=== PATIENT | female | born 1945 | race Caucasian/White ===

== ENCOUNTER 2016-10-03 12:51 | Emergency (ER) | payer MEDICARE, MEDICAID ==
[2016-10-03] MEDS ORDERED: NS 0.9% 1000 ML* 1,000 ML IV SCH (14:15)
[2016-10-03 14:26] LABS: Hematocrit 40 % (35-47); Hemoglobin 13.4 g/dl (12.0-16.0); Mean Corpuscular HGB Conc 33 g/dl (31-36); Mean Corpuscular Hemoglobin 30 pg (27-31); Mean Corpuscular Volume 91 fL (80-97); Mean Platelet Volume 9 um3 (7.4-10.4); Red Blood Count 4.42 10^6/ul (4.0-5.4); Red Cell Distribution Width 13 % (10.5-15); White Blood Count 6.5 10^3/ul (3.5-10.8)
[2016-10-03 14:39] LABS: Albumin 4.2 g/dL (3.2-5.2); BUN/Creatinine Ratio 23.6 (8-20); C Reactive Protein 8.58 mg/L (< 5.00); Calcium 9.7 mg/dL (8.6-10.3); EGFR African American 103.3 (>60); EGFR Non-African American 80.3 (>60); Globulin 2.6 g/dL (2-4); Magnesium 2.1 mg/dL (1.9-2.7); Total Bilirubin 0.6 mg/dL (0.2-1.0); Total Protein 6.8 g/dL (6.4-8.9)
[2016-10-03 14:58] LABS: TSH (Thyroid Stimulating Horm) 1.44 mcIU/mL (0.34-5.60)
--- NOTE | 2016-10-03 15:07 | RAD ---
Indication: Shortness of breath. Cardiac disease. Recent pacemaker battery placement. Chronic obstructive pulmonary disease. Comparison: May 30, 2016 Technique: Upright AP 1420 hours Report: RIGHT atrial, RIGHT ventricular, and coronary sinus level pacemaker leads without change. Cutaneous isabell over the control device corresponding with recent battery change. Prosthetic aortic valve. Negative for cardiomegaly. Unremarkable central pulmonary vasculature and mediastinal contours. Elevated lung volumes with partial flattening of the hemidiaphragms. Unchanged trace bilateral pleural effusions. Negative for pneumothorax. Minimal prominence of the interstitial markings without change. IMPRESSION: Chronic finding of trace bilateral pleural effusions. No evidence for new pulmonary edema or pneumonia.
--- NOTE | 2016-10-03 19:13 | ED ---
Ama Ruvalcaba Erika, scribed for Brayan Gan MD on 10/03/16 at 1521 . Palpitations / Dysrhythmia - HPI Summary HPI Summary: Patient is a 71-year-old female presenting to the ED with a CC of palpitations. Patient reports that she has been feeling intermittent SOB and fatigue for weeks. Her system development manager, Dr. Hess, believed it may be due to her pacemaker battery, so she had that replaced in [place] on 09/29/2016. Patient has continued to experience these symptoms. Last night, she had several quick palpitations, and felt more SOB during these palpitations. Today, patient states SOB and fatigue have been more constant, and she has also been experiencing lightheadedness, so Dr. Loomis recommended she come to the ED. Patient does report a few instances of sharp chest pain, but states this is at baseline. She reports she has been able to eat and drink today. She denies abdominal pain, diarrhea, blood in stool, burning with urination, and rashes. Patient reports that symptoms remind her of symptoms she had prior to valve replacement. - History of Current Complaint Chief Complaint: EDDysrhythmPalp Time Seen by Provider: 10/03/16 13:37 Hx Obtained From: Patient Onset/Duration: Lasting Weeks, Still Present Timing: Intermittent Episodes Lasting: - minutes/hours Severity Currently: Moderate Associated Signs & Symptoms: Shortness of Breath - Allergy/Home Medications Allergies/Adverse Reactions: Allergies Allergy/AdvReac Type Severity Reaction Status Date / Time Azithromycin Allergy Unknown Unknown Verified 10/03/16 13:25 Reaction Details Doxycycline Allergy Unknown Unknown Verified 10/03/16 13:25 Reaction Details Metoprolol Allergy Unknown Unknown Verified 10/03/16 13:25 Reaction Details Penicillins Allergy Unknown Unknown Verified 10/03/16 13:25 Reaction Details Simvastatin [From Zocor] Allergy Unknown Unknown Verified 10/03/16 13:25 Reaction Details Sulfa Drugs Allergy Unknown Unknown Verified 10/03/16 13:25 Reaction Details Sulfamethoxazole Allergy Unknown Unknown Verified 10/03/16 13:25 w/Trimethoprim Reaction [From Bactrim] Details Home Medications: Home Medications Lactobacillus [Probiotic] 1 cap PO 10/03/16 [History] PMH/Surg Hx/FS Hx/Imm Hx Endocrine/Hematology History: Reports: Hx Anticoagulant Therapy, Hx Anemia Denies: Hx Diabetes, Hx Systemic Lupus Erythematosus Cardiovascular History: Reports: Hx Auto Implanted Cardiovert Defib, Hx Congestive Heart Failure, Hx Coronary Artery Disease, Hx Hypercholesterolemia, Hx Hypertension - not taking medication now for approx one year, Hx Pacemaker/ ICD, Hx Valvular Heart Disease, Other Cardiovascular Problems/Disorders - patent foramen ovale, cardiomyopathy Respiratory History: Reports: Hx Asthma, Hx Chronic Obstructive Pulmonary Disease (COPD), Hx Pleural Effusion, Hx Sleep Apnea, Other Respiratory Problems/ Disorders - PATIENT STATES FLUID IN LUNGS GI History: Reports: Hx Gastroesophageal Reflux Disease History: Denies: Hx Dialysis, Hx Renal Disease Musculoskeletal History: Denies: Hx Rheumatoid Arthritis, Hx Scoliosis Sensory History: Reports: Hx Contacts or Glasses Opthamlomology History: Reports: Hx Contacts or Glasses Neurological History: Reports: Hx Seizures - partial simple, Hx Transient Ischemic Attacks (TIA) Denies: Hx Headaches - Cancer History Hx Chemotherapy: No - Surgical History Surgery Procedure, Year, and Place: CABG X 2 (09/2012) at [place], the second one was done at [facility] and 2 months ago 2013. PACEMAKER () [employer] [facility]#[phone]. mitral & aortic valve sx 09/21/2012 in [place]. [place] [facility] [place] hyste[place]. CARDIOVERSION, open heart several of these procedures then pacemaker was done. [place] [facility] [place] the [place]; left foot SX 15 years ago at [facility]; Hx Anesthesia Reactions: No Infectious Disease History: No Infectious Disease History: Reports: Hx Shingles Denies: Traveled Outside the [place] in Last 30 Days - Family History Known Family History: Positive: Cardiac Disease, Hypertension - Social History Alcohol Use: None Hx Substance Use: No Substance Use Type: Reports: None Hx Tobacco Use: No Smoking Status (MU): Never Smoked Tobacco Review of Systems Positive: Fatigue Positive: Palpitations, Chest Pain - sharp and short - baseline Positive: Shortness Of Breath Negative: Abdominal Pain, Diarrhea Negative: burning Negative: Rash Neurological: Other - lightheadedness All Other Systems Reviewed And Are Negative: Yes Physical Exam Triage Information Reviewed: Yes Vital Signs On Initial Exam: Initial Vitals Temp Pulse Resp BP Pulse Ox 97.2 F 100 16 180/73 100 10/03/16 13:01 10/03/16 13:01 10/03/16 13:01 10/03/16 13:01 10/03/16 13:01 Vital Signs Reviewed: Yes Appearance: Positive: Well-Appearing, No Pain Distress Skin: Positive: Warm, Skin Color Reflects Adequate Perfusion, Dry Head/Face: Positive: Normal Head/Face Inspection Eyes: Positive: EOMI, EILEEN ENT: Positive: Normal ENT inspection Neck: Positive: Supple, Nontender Respiratory/Lung Sounds: Positive: Clear to Auscultation, Breath Sounds Present Cardiovascular: Positive: RRR - on exam, noted 100 on triage Abdomen Description: Positive: Nontender, Soft Bowel Sounds: Positive: Present Musculoskeletal: Positive: Normal, Strength/ROM Intact Neurological: Positive: Normal, Sensory/Motor Intact, Alert, Oriented to Person Place, Time Psychiatric: Positive: Affect/Mood Appropriate - Evangelist Coma Scale Coma Scale Total: 15 Diagnostics - Vital Signs Vital Signs Temp Pulse Resp BP Pulse Ox 10/03/16 13:19 154/70 10/03/16 13:17 97.2 F 77 16 154/70 98 10/03/16 13:16 84 10/03/16 13:01 97.2 F 100 16 180/73 100 - Laboratory Lab Results: Lab Results 10/03/16 10/03/16 10/03/16 Range/Units 13:40 13:40 13:40 WBC 6.5 (3.5-10.8) 10^3/ul RBC 4.42 (4.0-5.4) 10^6/ul Hgb 13.4 (12.0-16.0) g/dl Hct 40 (35-47) % MCV 91 (80-97) fL MCH 30 (27-31) pg MCHC 33 (31-36) g/dl RDW 13 (10.5-15) % Plt Count 159 (150-450) 10^3/ul MPV 9 (7.4-10.4) um3 Neut % (Auto) 76.3 (38-83) % Lymph % (Auto) 14.5 L (25-47) % [place] % (Auto) 7.7 (1-9) % Eos % (Auto) 1.3 (0-6) % Baso % (Auto) 0.2 (0-2) % Absolute Neuts (auto) 5.0 (1.5-7.7) 10^3/ul Absolute Lymphs (auto) 0.9 L (1.0-4.8) 10^3/ul Absolute Monos (auto) 0.5 (0-0.8) 10^3/ul Absolute Eos (auto) 0.1 (0-0.6) 10^3/ul Absolute Basos (auto) 0 (0-0.2) 10^3/ul Absolute Nucleated RBC 0 10^3/ul Nucleated RBC % 0 INR (Anticoag Therapy) 1.00 (0.89-1.11) APTT 30.1 (26.0-36.3) seconds Sodium 138 (133-145) mmol/L Potassium 4.0 (3.5-5.0) mmol/L Chloride 105 (101-111) mmol/L Carbon Dioxide 24 (22-32) mmol/L Anion Gap 9 (2-11) mmol/L BUN 17 (6-24) mg/dL Creatinine 0.72 (0.51-0.95) mg/dL Est GFR ( Amer) 103.3 (>60) Est GFR (Non-Af Amer) 80.3 (>60) BUN/Creatinine Ratio 23.6 H (8-20) Glucose 87 (70-100) mg/dL Lactic Acid (0.5-2.0) mmol/L Calcium 9.7 (8.6-10.3) mg/dL Magnesium 2.1 (1.9-2.7) mg/dL Total Bilirubin 0.60 (0.2-1.0) mg/dL AST 25 (13-39) U/L ALT 20 (7-52) U/L Alkaline Phosphatase 48 (34-104) U/L Total Creatine Kinase 58 (10-223) U/L CK-MB (CK-2) 1.5 (0.6-6.3) ng/mL Troponin I 0.00 (<0.04) ng/mL C-Reactive Protein 8.58 H (< 5.00) mg/L B-Natriuretic Peptide ( - 100) pg/mL Total Protein 6.8 (6.4-8.9) g/dL Albumin 4.2 (3.2-5.2) g/dL Globulin 2.6 (2-4) g/dL Albumin/Globulin Ratio 1.6 (1-3) Lipase 43 (11.0-82.0) U/L TSH 1.44 (0.34-5.60) mcIU/mL 10/03/16 10/03/16 Range/Units 13:40 13:40 WBC (3.5-10.8) 10^3/ul RBC (4.0-5.4) 10^6/ul Hgb (12.0-16.0) g/dl Hct (35-47) % MCV (80-97) fL MCH (27-31) pg MCHC (31-36) g/dl RDW (10.5-15) % Plt Count (150-450) 10^3/ul MPV (7.4-10.4) um3 Neut % (Auto) (38-83) % Lymph % (Auto) (25-47) % [place] % (Auto) (1-9) % Eos % (Auto) (0-6) % Baso % (Auto) (0-2) % Absolute Neuts (auto) (1.5-7.7) 10^3/ul Absolute Lymphs (auto) (1.0-4.8) 10^3/ul Absolute Monos (auto) (0-0.8) 10^3/ul Absolute Eos (auto) (0-0.6) 10^3/ul Absolute Basos (auto) (0-0.2) 10^3/ul Absolute Nucleated RBC 10^3/ul Nucleated RBC % INR (Anticoag Therapy) (0.89-1.11) APTT (26.0-36.3) seconds Sodium (133-145) mmol/L Potassium (3.5-5.0) mmol/L Chloride (101-111) mmol/L Carbon Dioxide (22-32) mmol/L Anion Gap (2-11) mmol/L BUN (6-24) mg/dL Creatinine (0.51-0.95) mg/dL Est GFR ( Amer) (>60) Est GFR (Non-Af Amer) (>60) BUN/Creatinine Ratio (8-20) Glucose (70-100) mg/dL Lactic Acid 0.6 (0.5-2.0) mmol/L Calcium (8.6-10.3) mg/dL Magnesium (1.9-2.7) mg/dL Total Bilirubin (0.2-1.0) mg/dL AST (13-39) U/L ALT (7-52) U/L Alkaline Phosphatase (34-104) U/L Total Creatine Kinase (10-223) U/L CK-MB (CK-2) (0.6-6.3) ng/mL Troponin I (<0.04) ng/mL C-Reactive Protein (< 5.00) mg/L B-Natriuretic Peptide 58 ( - 100) pg/mL Total Protein (6.4-8.9) g/dL Albumin (3.2-5.2) g/dL Globulin (2-4) g/dL Albumin/Globulin Ratio (1-3) Lipase (11.0-82.0) U/L TSH (0.34-5.60) mcIU/mL Result Diagrams: 10/03/16 13:40 10/03/16 13:40 Lab Statement: Any lab studies that have been ordered have been reviewed, and results considered in the medical decision making process. - Radiology CXR Radiology Interpretation Completed By: Radiologist - IMPRESSION: Chronic finding of trace bilateral pleural effusions. No evidence for new pulmonary edema or pneumonia. - EKG 13:11 EKG Interpretation: Dual chamber paced rhythm at 70 bpm Re-Evaluation - Re-Evaluation First Eval Re-Evaluation Time: 17:41 Comment: Discussed all results with patient Course/Dx - Course Course Of Treatment: NO CRITICAL CARE TIME Assessment/Plan: WELL IN ED. NO PROBLEMS WITH PACEMAKER WHICH WAS INTERROGATED. PATIENT WILL CALL CARDIOLOGY TO DISCUSS HAVING AN ECHO CARDIOGRAM. DISCHARGE HOME STABLE. - Diagnoses Provider Diagnoses: Dyspnea, Palpitations - Physician Notifications Discussed Care Of Patient With: Dr. Loomis (system development manager) at 14:09 - recommends having evaluation by pacemaker interrogation tech. Discharge - Discharge Plan Condition: Stable Disposition: HOME Patient Education Materials: Dyspnea (ED), Palpitations (ED) Referrals: Sol Jones MD [Primary Care Provider] - Additional Instructions: FOLLOW UP WITH YOUR DOCTOR. CALL DR HESS WEDNESDAY, DISCUSS GETTING AN ECHO CARDIOGRAM. RETURN TO THE EMERGENCY DEPARTMENT FOR ANY WORSENING OF YOUR CONDITION; CHEST PAIN, SHORTNESS OF BREATH OR QUESTIONS OR CONCERNS. The documentation as recorded by the Ama catalan Erika accurately reflects the service I personally performed and the decisions made by me, Brayan Gan MD.
[2016-10-03 19:49] VITALS: BP 104/50
== END 2016-10-03 20:00 | disposition home or self-care (01) ==
LOC: ED 12:51
DX: R06.00 Dyspnea, unspecified (principal); R00.2 Palpitations; R06.02 Shortness of breath; R07.9 Chest pain, unspecified; R53.83 Other fatigue
CPT/HCPCS: 36415; 71010; 80053; 82550; 82553; 83605; 83690; 83735; 83880; 84443; 84484; 85025; 85610; 85730; 86140; 93005; 96360; 99283

== ENCOUNTER → 2016-10-22 12:32 | Emergency (ER) | payer MEDICARE, MEDICAID ==
[2016-10-22 13:44] VITALS: BP 146/82
[2016-10-22 13:57] LABS: Hematocrit 41 % (35-47); Hemoglobin 13.5 g/dl (12.0-16.0); Mean Corpuscular HGB Conc 33 g/dl (31-36); Mean Corpuscular Hemoglobin 30 pg (27-31); Mean Corpuscular Volume 91 fL (80-97); Mean Platelet Volume 8 um3 (7.4-10.4); Red Blood Count 4.48 10^6/ul (4.0-5.4); Red Cell Distribution Width 13 % (10.5-15); White Blood Count 6.3 10^3/ul (3.5-10.8)
--- NOTE | 2016-10-22 14:02 | RAD ---
Indication: Blurred vision, weakness, chest discomfort, fatigue. Comparison: February 07, 2016 CT. Technique: Noncontrast CT vertex of skull through foramen magnum. Report: Moderately severe prominence of the cerebral sulci without change. Similar moderate prominence of the cerebellar fissures. Encephalomalacia at the vertex of the RIGHT parietal lobe likely secondary to ischemic or other remote insult. No matter white matter obscuration, intra or extra-axial hemorrhage, or mass effect. Unremarkable ventricles and basal cisterns. Unremarkable partially visualized orbital contents. Unremarkable calvarium and skull base as well as the visualized paranasal sinuses and mastoid air spaces. IMPRESSION: 1. No acute intracranial process evident. 2. Moderate involutional change. 3. 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
[2016-10-22 14:13] LABS: ALT 18 U/L (7-52); AST 24 U/L (13-39); Albumin 4.3 g/dL (3.2-5.2); Alkaline Phosphatase 50 U/L (34-104); Anion Gap 6 mmol/L (2-11); BUN/Creatinine Ratio 21.5 (8-20); Blood Urea Nitrogen 17 mg/dL (6-24); CO2 Carbon Dioxide 27 mmol/L (22-32); Calcium 9.9 mg/dL (8.6-10.3); Chloride 106 mmol/L (101-111); EGFR African American 92.8 (>60); EGFR Non-African American 72.2 (>60); Globulin 2.6 g/dL (2-4); Glucose 95 mg/dL (70-100); Potassium 3.9 mmol/L (3.5-5.0); Sodium 139 mmol/L (133-145); Total Protein 6.9 g/dL (6.4-8.9)
[2016-10-22 14:14] LABS: Troponin I 0.01 ng/mL (<0.04)
--- NOTE | 2016-10-22 14:37 | RAD ---
INDICATION: Blurred vision, ill-defined mental status change. Shortness of breath, recent chest pain. History of cardiomyopathy and previous valve surgery. COMPARISON: October 03, 2016 TECHNIQUE: Dual energy PA and routine lateral views of the chest were obtained. REPORT: Elevated lung volumes and both diffuse mild prominence of the interstitial markings and patchy rarefaction of the mid to upper lung zone interstitial markings. No pulmonary infiltrate or focal pulmonary lesion evident. Probable trace pleural effusions. Negative for pneumothorax. RIGHT atrial, RIGHT ventricular, and coronary sinus level pacemaker leads without change. Negative for cardiomegaly. Median sternotomy wires and prosthetic aortic valve. Unremarkable central pulmonary vasculature. No suspicious thoracic osseous lesions. IMPRESSION: 1. Stigmata of obstructive lung disease. 2. Very mild interstitial edema not excluded. Probable trace pleural effusions.
[2016-10-22 14:43] LABS: Alcohol < 10 mg/dL (<10)
--- NOTE | 2016-10-22 15:52 | ED ---
Dina Ruvalcaba Alok, scribed for Ruperto Avila MD on 10/22/16 at 1425 . Neurological HPI - HPI Summary HPI Summary: 71F presents to the ED for blurry vision and fatigue as of 1100 this morning. Pt states that at 1100 she noticed blurry vision without diplopia while trying to read. Pt also noted at 1100 left sided sharp pains and felt "her brain was not functioning properly" described as an "out of body experienced" as well as nausea and slight SOB. At present pt states her vision has improved and only c/ o fatigue. Pt also notes slight congestion. Pt notes a cold sore on her right side lower mouth for the last 4 days. Pt also notes chronic lung pain due to lung fluid removal done at [place] by Dr. Sky. Pt denies cough and has been eating/sleeping normally. Pt states her BM have been nml. PMHx includes heart murmur and pacemaker. PSHx includes 2 CABG. - History of Current Complaint Chief Complaint: EDNeurologicalDeficit Stated Complaint: BLURRED VISION,SOB,BRIEF CHEST PAIN Time Seen by Provider: 10/22/16 13:46 Hx Obtained From: Patient Onset/Duration: Started hours ago, Still Present - fatigue, Resolved - vison blurriness Timing: Constant Onset Severity: Moderate Current Severity: Moderate Pain Intensity: 0 Pain Scale Used: 0-10 Numeric Character: Unable To Describe - "out of body", Visual Changes - blurriness, Other: - faituge. nausea. slight SOB. left side sharp pains. Negative: diplopia. Associated Signs and Symptoms: Positive: Visual Changes - blurriness. Negative: Diplopia, Weakness - Fatigue-like. Left side sharp pains., Nausea/Vomiting, Shortness of Breath - slight. Negative: Fever - Allergy/Home Medications Allergies/Adverse Reactions: Allergies Allergy/AdvReac Type Severity Reaction Status Date / Time Azithromycin Allergy Unknown Unknown Verified 10/03/16 13:25 Reaction Details Doxycycline Allergy Unknown Unknown Verified 10/03/16 13:25 Reaction Details Metoprolol Allergy Unknown Unknown Verified 10/03/16 13:25 Reaction Details Penicillins Allergy Unknown Unknown Verified 10/03/16 13:25 Reaction Details Simvastatin [From Zocor] Allergy Unknown Unknown Verified 10/03/16 13:25 Reaction Details Sulfa Drugs Allergy Unknown Unknown Verified 10/03/16 13:25 Reaction Details Sulfamethoxazole Allergy Unknown Unknown Verified 10/03/16 13:25 w/Trimethoprim Reaction [From Bactrim] Details PMH/Surg Hx/FS Hx/Imm Hx Endocrine/Hematology History: Reports: Hx Anticoagulant Therapy, Hx Anemia Denies: Hx Diabetes, Hx Systemic Lupus Erythematosus Cardiovascular History: Reports: Hx Auto Implanted Cardiovert Defib, Hx Congestive Heart Failure, Hx Coronary Artery Disease, Hx Hypercholesterolemia, Hx Hypertension - not taking medication now for approx one year, Hx Pacemaker/ ICD, Hx Valvular Heart Disease, Other Cardiovascular Problems/Disorders - patent foramen ovale, cardiomyopathy Respiratory History: Reports: Hx Asthma, Hx Chronic Obstructive Pulmonary Disease (COPD), Hx Pleural Effusion, Hx Sleep Apnea, Other Respiratory Problems/ Disorders - PATIENT STATES FLUID IN LUNGS GI History: Reports: Hx Gastroesophageal Reflux Disease History: Denies: Hx Dialysis, Hx Renal Disease Musculoskeletal History: Denies: Hx Rheumatoid Arthritis, Hx Scoliosis Sensory History: Reports: Hx Contacts or Glasses Opthamlomology History: Reports: Hx Contacts or Glasses Neurological History: Reports: Hx Seizures - partial simple, Hx Transient Ischemic Attacks (TIA) Denies: Hx Headaches - Cancer History Hx Chemotherapy: No - Surgical History Surgery Procedure, Year, and Place: CABG X 2 (09/2012) at [place], the second one was done at [facility] and 2 months ago 2013. PACEMAKER () [employer] [facility]#[phone]. mitral & aortic valve sx 09/21/2012 in [place]. left thorcetesis 12[place]2012 [place] [facility] [place] tubal ligation & hysterectomy. CARDIOVERSION, open heart several of these procedures then pacemaker was done. Sigmoid colon resection at [facility] [place] pt cannot remember the year; left foot SX 15 years ago at [facility]; Hx Anesthesia Reactions: No Infectious Disease History: No Infectious Disease History: Reports: Hx Shingles Denies: Traveled Outside the [place] in Last 30 Days - Family History Known Family History: Positive: Cardiac Disease, Hypertension - Social History Occupation: Disabled Alcohol Use: None Hx Substance Use: No Substance Use Type: Reports: None Hx Tobacco Use: No Smoking Status (MU): Never Smoked Tobacco Review of Systems Positive: Fatigue. Negative: Fever Positive: Blurred Vision. Negative: Diplopia Positive: Other - nasal congestion. Cold sore right side lower mouth. Positive: Shortness Of Breath - slight, Other - lung pain (chronic). Negative: Cough Positive: Nausea, Other - Negative: constipation. Loss of apetite. Negative: Diarrhea Neurological: Other - left side sharp pain. Negative: loss of sleep All Other Systems Reviewed And Are Negative: Yes Physical Exam Triage Information Reviewed: Yes Vital Signs On Initial Exam: Initial Vitals Temp Pulse Resp BP Pulse Ox 97.8 F 70 18 166/76 100 10/22/16 12:35 10/22/16 12:35 10/22/16 12:35 10/22/16 12:35 10/22/16 12:35 Vital Signs Reviewed: Yes Appearance: Positive: Well-Appearing, No Pain Distress Skin: Positive: Warm, Skin Color Reflects Adequate Perfusion, Dry, Other - abcess ulcer right side lower mouth Head/Face: Positive: Normal Head/Face Inspection Eyes: Positive: Normal ENT: Positive: Other - abcess ulcer right side lower mouth Neck: Positive: Supple, Nontender Respiratory/Lung Sounds: Positive: Clear to Auscultation, Breath Sounds Present Cardiovascular: Positive: RRR Abdomen Description: Positive: Nontender, Soft Bowel Sounds: Positive: Present Musculoskeletal: Positive: Normal Neurological: Positive: Normal Psychiatric: Positive: Normal, Affect/Mood Appropriate Diagnostics - Vital Signs Vital Signs Temp Pulse Resp BP Pulse Ox 10/22/16 13:36 99.8 F 79 14 146/82 98 10/22/16 12:35 97.8 F 70 18 166/76 100 - Laboratory Lab Results: Lab Results 10/22/16 Range/Units 13:50 WBC 6.3 (3.5-10.8) 10^3/ul RBC 4.48 (4.0-5.4) 10^6/ul Hgb 13.5 (12.0-16.0) g/dl Hct 41 (35-47) % MCV 91 (80-97) fL MCH 30 (27-31) pg MCHC 33 (31-36) g/dl RDW 13 (10.5-15) % Plt Count 163 (150-450) 10^3/ul MPV 8 (7.4-10.4) um3 Neut % (Auto) 78.7 (38-83) % Lymph % (Auto) 13.5 L (25-47) % [place] % (Auto) 6.8 (1-9) % Eos % (Auto) 0.5 (0-6) % Baso % (Auto) 0.5 (0-2) % Absolute Neuts (auto) 4.9 (1.5-7.7) 10^3/ul Absolute Lymphs (auto) 0.8 L (1.0-4.8) 10^3/ul Absolute Monos (auto) 0.4 (0-0.8) 10^3/ul Absolute Eos (auto) 0 (0-0.6) 10^3/ul Absolute Basos (auto) 0 (0-0.2) 10^3/ul Absolute Nucleated RBC 0.01 10^3/ul Nucleated RBC % 0.1 Result Diagrams: 10/22/16 13:50 10/22/16 13:50 Lab Statement: Any lab studies that have been ordered have been reviewed, and results considered in the medical decision making process. - Radiology CXR Xray Interpretation: Positive (See Comments) - IMPRESSION: 1. Stigmata of obstructive lung disease. 2. Very mild interstitial edema not excluded. Probable trace pleural effusions. Radiology Interpretation Completed By: Radiologist - CT Brain CT CT Interpretation: Positive (See Comments) - IMPRESSION: 1. No acute intracranial process evident. 2. Moderate involutional change. 3. 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 CT Interpretation Completed By: Radiologist - EKG 1250 Cardiac Rate: NL - 70 bpm EKG Rhythm: Sinus Rhythm EKG Interpretation: Paced Course/Dx - Course Course Of Treatment: Ms. Ramirez presented with a number of vague C/O which were present when she got up at about 0700 and are mostly gone now. On repeated questioning she is unable to pin down the symptoms but clearly did not feel well. She is feel ing better now and her W/U is negative. I recommended close F/U in case her symptoms return. - Diagnoses Provider Diagnoses: Weakness Discharge - Discharge Plan Condition: Stable Disposition: HOME Patient Education Materials: Weakness (ED) Referrals: Sol Jones MD [Primary Care Provider] - Additional Instructions: Please follow up with your primary care provider The documentation as recorded by the Dina catalan Alok accurately reflects the service I personally performed and the decisions made by me, Ruperto Avila MD.
== END | disposition home or self-care (01) ==
LOC: ED 12:32
DX: R53.1 Weakness (principal); H53.8 Other visual disturbances; R53.83 Other fatigue; R06.02 Shortness of breath; R11.0 Nausea
CPT/HCPCS: 36415; 70450; 71020; 80053; 80320; 83605; 84484; 85025; 85610; 93005; 99283; G0480

== ENCOUNTER 2016-12-12 11:27 | Inpatient (IN) | payer MEDICARE, MEDICAID ==
[2016-12-12] MEDS ORDERED: Ketorolac INJ* 30 MG/ML 1 ML VIAL IM ONE (12:26)
[2016-12-12] MEDS ORDERED: Ketorolac INJ* 60 MG/2 ML VIAL ONE (12:27)
--- NOTE | 2016-12-12 13:29 | RAD ---
HISTORY: Fall, rib pain COMPARISONS: None relevant VIEWS: 5, Frontal view of the chest with frontal and oblique views of the left hemithorax FINDINGS: There is left-sided pacemaker generator. A prosthetic heart valve is noted. There is a minimally displaced fracture of the left sixth rib. There is no appreciable pneumothorax. IMPRESSION: MINIMALLY DISPLACED LEFT SIXTH RIB FRACTURE. NO APPRECIABLE PNEUMOTHORAX.
--- NOTE | 2016-12-12 13:31 | RAD ---
HISTORY: Fall, pelvic pain COMPARISONS: None VIEWS: 1, Single frontal view of the pelvis FINDINGS: BONE DENSITY: Normal. BONES: There are minimally displaced fractures of the left inferior and superior pubic rami JOINTS: There is no arthropathy. ALIGNMENT: There is no dislocation. SOFT TISSUES: Unremarkable. OTHER FINDINGS: Degenerative changes noted of the spine IMPRESSION: MINIMALLY DISPLACED FRACTURES OF THE LEFT INFERIOR AND SUPERIOR PUBIC RAMI
--- NOTE | 2016-12-12 13:32 | RAD ---
HISTORY: Fall, left hip pain COMPARISONS: None VIEWS: 4, Frontal and lateral views of the left femur FINDINGS: BONE DENSITY: Normal. BONES: There is no displaced fracture. JOINTS: There is no arthropathy. ALIGNMENT: There is no dislocation. SOFT TISSUES: Unremarkable. OTHER FINDINGS: None. IMPRESSION: NO ACUTE OSSEOUS INJURY. IF SYMPTOMS PERSIST, RECOMMEND REPEAT IMAGING.
--- NOTE | 2016-12-12 13:39 | ED ---
Adult Trauma - HPI Summary HPI Summary: 71 female presents via EMS with complaints of left rib pain and left hip/thigh pain after sustaining a fall just [employer]. Patient states she was at a friends house when she fell down 2-3 steps landing on some gravel on her left side. Denies hitting her head, no LOC and remembers everything. States she was unable to get up due to the pain in her left groin area. She also complains of left rib pain that worsens with deep breaths. Patient states she fractured her rib on left side back in May and the pain feels similar. She denies any trouble breathing or SOB. Patient denies headache, vomiting, visual changes and chest pain/difficulty breathing. Did not have a syncopal episode. Denies lacerations, admits to a small abrasion on left elbow. Also complains of left wrist discomfort but no loss of ROM or obvious deformity. Is feeling nauseous but she thinks it is because she is worked up from the episode of events. No other complaints at this time. Is not on blood thinners. - History of Current Complaint Chief Complaint: EDGeneral Stated Complaint: FALL RIB AND PELVIC PAIN Time Seen by Provider: 12/12/16 11:37 Hx Obtained From: Patient, Family/Bioprocessing Manufacturing Technician - daughter and son in law ?: No Mechanism of Injury: Fall - down 2-3 steps onto some gravel after tripping Ambulatory at the Scene: No - due to pain Loss of Consciousness: no loss of consciousness Force: Medium Onset/Duration: Started Hours Ago, Traumatic, Worse Since Onset of Pain: Immediate Onset Severity: Moderate Current Severity: Mild Pain Intensity: 3 Pain Scale Used: 0-10 Numeric - 8/10 with movement Location: Chest - left rib cage/chest, Abdomen/Pelvis - LUQ and pelvis/femur left hip, Extremities - left wrist Character: Aching, Sharp Aggravating Factor(s): Movement, Deep Breaths, Weight Bearing, Ambulation Alleviating Factor(s): Rest - position Associated Signs & Symptoms: Positive: Abdominal Pain - "left ribs", Nausea/ Vomiting - nausea. Negative: SOB, Chest Pain, Hematuria - Allergy/Home Medications Allergies/Adverse Reactions: Allergies Allergy/AdvReac Type Severity Reaction Status Date / Time Penicillins Allergy Intermediate Rash Verified 11/27/16 12:53 Sulfamethoxazole Allergy Intermediate See Comment Verified 11/27/16 12:54 w/Trimethoprim [From Bactrim] Azithromycin Allergy Unknown Unknown Verified 11/27/16 12:53 Reaction Details Doxycycline Allergy Unknown Unknown Verified 11/27/16 12:53 Reaction Details Metoprolol Allergy Unknown Unknown Verified 11/27/16 12:53 Reaction Details Simvastatin [From Zocor] Allergy Unknown Unknown Verified 11/27/16 12:53 Reaction Details Sulfa Drugs Allergy Unknown Unknown Verified 11/27/16 12:53 Reaction Details PMH/Surg Hx/FS Hx/Imm Hx Endocrine/Hematology History: Reports: Hx Anticoagulant Therapy, Hx Anemia Denies: Hx Diabetes, Hx Systemic Lupus Erythematosus Cardiovascular History: Reports: Hx Auto Implanted Cardiovert Defib, Hx Congestive Heart Failure, Hx Coronary Artery Disease, Hx Hypercholesterolemia, Hx Hypertension - not taking medication, Hx Pacemaker/ICD, Hx Valvular Heart Disease, Other Cardiovascular Problems/Disorders - patent foramen ovale, cardiomyopathy Respiratory History: Reports: Hx Asthma, Hx Chronic Obstructive Pulmonary Disease (COPD), Hx Pleural Effusion, Hx Sleep Apnea, Other Respiratory Problems/ Disorders - PATIENT STATES FLUID IN LUNGS GI History: Reports: Hx Gastroesophageal Reflux Disease History: Denies: Hx Dialysis, Hx Renal Disease Musculoskeletal History: Denies: Hx Rheumatoid Arthritis, Hx Scoliosis Sensory History: Reports: Hx Contacts or Glasses Opthamlomology History: Reports: Hx Contacts or Glasses Neurological History: Reports: Hx Seizures - partial simple, Hx Transient Ischemic Attacks (TIA) Denies: Hx Headaches - Cancer History Hx Chemotherapy: No - Surgical History Surgery Procedure, Year, and Place: CABG X 2 (09/2012) at [place], the second one was done at [facility] and 2 months ago 2013. PACEMAKER () [employer] PH#[phone]. mitral & aortic valve sx 09/21/2012 in [place]. left thorcetesis 12[place]2012 [place] [facility] [place] tub[place] ligation & hysterectomy. CARDIOVERSION, open heart several of these procedures then pacemaker was done. Sigmoid colon resection at [facility] [place] cannot remember the year; left foot SX 15 years ago at [facility]; Hx Anesthesia Reactions: No - Immunization History Date of Tetanus Vaccine: UTD Date of Influenza Vaccine: UTD Immunizations Up to Date: Yes Infectious Disease History: No Infectious Disease History: Reports: Hx Shingles Denies: Traveled Outside the [place] in Last 30 Days - Family History Known Family History: Positive: Cardiac Disease, Hypertension - Social History Alcohol Use: None Hx Substance Use: No Substance Use Type: Reports: None Hx Tobacco Use: No Smoking Status (MU): Never Smoked Tobacco Review of Systems Constitutional: Negative Eyes: Negative ENT: Negative Cardiovascular: Negative Positive: Chest Pain - left rib cage Respiratory: Negative Positive: Abdominal Pain - upper quadrants, Nausea Positive: Arthralgia, Myalgia - left hip/femur and left wrist, left ribs Positive: Other - minor abrasion left elbow from fall Neurological: Negative All Other Systems Reviewed And Are Negative: Yes Physical Exam Triage Information Reviewed: Yes Vital Signs On Initial Exam: Initial Vitals Temp Pulse Resp BP Pulse Ox 99 F 79 18 160/70 100 12/12/16 11:29 12/12/16 11:29 12/12/16 11:29 12/12/16 11:29 12/12/16 11:29 slightly elevated BP noted. Vital Signs Reviewed: Yes Appearance: Positive: Well-Appearing, Well-Nourished, Pain Distress - moderate Skin: Positive: Warm, Skin Color Reflects Adequate Perfusion, Dry, Cold. Negative: Numb, Cyanosis @, Diaphoretic Head/Face: Positive: Normal Head/Face Inspection. Negative: Temporal Artery Tenderness, TMJ Tenderness, Cephalohematoma Eyes: Positive: Normal, EOMI, EILEEN, Conjunctiva Clear ENT: Positive: Normal ENT inspection, Hearing grossly normal, Pharynx normal, TMs normal, Other - no racoon eyes, nasal tenderness, facial bone tenderness, ecchymosis or daugherty's signs. no signs of epistaxis. Neck: Positive: Supple, Nontender Respiratory/Lung Sounds: Positive: Clear to Auscultation, Breath Sounds Present. Negative: Decreased Breath Sounds, Rales, Rhonchi, Stridor, Wheezes Cardiovascular: Positive: Normal, RRR, Pulses are Symmetrical in both Upper and Lower Extremities - 2+ b/l all extremities. Negative: Murmur, Rub, Leg Edema Left, Leg Edema Right Abdomen Description: Positive: No Organomegaly, Soft, Guarding, Other: - patient is tender in RUQ/LUQ and left rib cage area, difficult to differentiate bony tenderness versus visceral no lower abdominal pain. Negative: Bruit, CVA Tenderness (R), CVA Tenderness (L), Distended, McBurney's Point Tenderness, Peritoneal Signs, Pulsatile Mass Bowel Sounds: Positive: Present Musculoskeletal: Positive: Limited @ - left lower extremity due to pain, rest of extremities normal FROM., Pain @ - left rib cage on palpation and with movement of left lower extremity at hip, Other - no obvious deformity or ecchymosis noted. mild crepitus noted at left 5th-7th rib area.. Negative: Interruption @, Edema Left, Edema Right Neurological: Positive: Normal, Sensory/Motor Intact - sensation intact and her norm as she has some neuropathy, Alert, Oriented to Person Place, Time, CN Intact II-III, Reflexes Intact, NV Bundle Intact Distally, Finger to Nose - normal, Unable to Assess Gait, Facial Symmetry, Speech Normal. Negative: Facial Droop Psychiatric: Positive: Affect/Mood Appropriate AVPU Assessment: Alert - Constantia Coma Scale Best Eye Response: 4 - Spontaneous Best Motor Response: 6 - Obeys Commands Best Verbal Response: 5 - Oriented Coma Scale Total: 15 Diagnostics - Vital Signs Vital Signs Temp Pulse Resp BP Pulse Ox 12/12/16 11:29 99 F 79 18 160/70 100 - Laboratory Result Diagrams: 12/12/16 14:44 Lab Statement: Any lab studies that have been ordered have been reviewed, and results considered in the medical decision making process. - Radiology ribs L and chest Xray Interpretation: Positive (See Comments) Radiology Interpretation Completed By: Radiologist pelvis Xray Interpretation: Positive (See Comments) - MINIMALLY DISPLACED FRACTURES OF THE LEFT INFERIOR AND SUPERIOR PUBIC RAMI femur left Xray Interpretation: No Acute Changes - NO ACUTE OSSEOUS INJURY. IF SYMPTOMS PERSIST, RECOMMEND REPEAT IMAGING. Radiology Interpretation Completed By: Radiologist Re-Evaluation - Re-Evaluation First Eval Re-Evaluation Time: 13:30 Change: Improved - had some improvement after toradol, will give norco for more relief. aware of plan of action. Adult Trauma Course/Dx - Course Course Of Treatment: X-rays of femur, pelvis, chest, left ribs and wrist ordered. CT abd/pelvis ordered due to trauma and tenderness and rule out splenic or other visceral injury. Patient had multiple fractures including left 6th rib and pubic rami fracture. Given toradol and norco for pain and inflammation. Had relief. Patient denies LOC and hitting head. Not on blood thinners. CT of brain was not obtained at this time however made aware of delayed symptoms. Awaiting CT abd/pelvis results and wrist x-ray. Spoke with Dr Kan and Dr Lopez who state admission due to multiple fractures may be necessary however if patient would like to go home she is able. Patient decided she would like to stay however Ct results of abd/pelvis is still pending to ensure no other traumatic etiology. Patient's HPI and course of treatment was discussed with Natalie ROBERTS at 2:45pm and signed out to her. - Diagnoses Differential Diagnosis/HQI/PQRI: Positive: Contusion(s), Fracture, Hematoma(s), Laceration(s), Sprain Provider Diagnoses: Rib fracture, Pelvic fracture - Physician Notifications Discussed Care Of Patient With: Dr Kan - Natalie Willis and Dr Lopez 2:30pm Time Discussed With Above Provider: 13:45 Discharge - Discharge Plan Condition: Stable Disposition: OTHER Discharge Disposition Comment: Natalie Willis PA-C Referrals: Sol Jones MD [Primary Care Provider] -
[2016-12-12] MEDS ORDERED: HYDROcodone/ACETAMIN 5-325 MG* 1 TAB PO ONE (13:54)
[2016-12-12 14:57] LABS: Hematocrit 44 % (35-47); Hemoglobin 14.4 g/dl (12.0-16.0); Mean Corpuscular HGB Conc 33 g/dl (31-36); Mean Corpuscular Hemoglobin 30 pg (27-31); Mean Corpuscular Volume 93 fL (80-97); Mean Platelet Volume 8 um3 (7.4-10.4); Red Blood Count 4.75 10^6/ul (4.0-5.4); Red Cell Distribution Width 13 % (10.5-15); White Blood Count 12.7 10^3/ul (3.5-10.8)
--- NOTE | 2016-12-12 15:00 | RAD ---
HISTORY: Left wrist pain, trauma COMPARISONS: None VIEWS: 3, Frontal, lateral, and oblique views of the left wrist FINDINGS: BONE DENSITY: There is diffuse osteopenia. BONES: There is no acute displaced fracture. There is a chronic appearing fracture of the styloid process of the ulna JOINTS: There is advanced osteoarthritis of the first CMC and scaphoid and trapezium articulations. ALIGNMENT: There is no dislocation. SOFT TISSUES: Unremarkable. OTHER FINDINGS: None. IMPRESSION: 1. OSTEOPENIA. 2. OSTEOARTHRITIS. 3. NO ACUTE OSSEOUS INJURY. THE DEGREE OF OSTEOPENIA MAY MAKE A NONDISPLACED FRACTURE RADIOGRAPHICALLY OCCULT. IF SYMPTOMS PERSIST, RECOMMEND REPEAT IMAGING.
[2016-12-12 15:14] LABS: Albumin 4.7 g/dL (3.2-5.2); BUN/Creatinine Ratio 21.1 (8-20); Calcium 10.1 mg/dL (8.6-10.3); EGFR Non-African American 81.6 (>60); Globulin 2.8 g/dL (2-4); Potassium 3.7 mmol/L (3.5-5.0); Total Bilirubin 0.7 mg/dL (0.2-1.0); Total Protein 7.5 g/dL (6.4-8.9)
[2016-12-12] MEDS ORDERED: Iohexol 300* (CONTRAST) 10 ML SDV IV ONE (15:17)
--- NOTE | 2016-12-12 15:59 | RAD ---
HISTORY: Trauma, rule out splenic injury COMPARISONS: CT of the chest dated March 05, 2014, CT of the abdomen and dated November 27, 2016 TECHNIQUE: Multiple contiguous axial CT scans were obtained of the chest, abdomen, and pelvis after the administration of intravenous contrast. Coronal and sagittal multiplanar reformations are submitted for review.. FINDINGS: CHEST NECK AND THYROID: The lower neck and thyroid are unremarkable. CHEST WALL: There is no lower cervical, axillary, or supraclavicular lymphadenopathy by size criteria. A left-sided pacemaker is noted HEART AND PERICARDIUM: The heart is unremarkable. AORTA AND PULMONARY VASCULATURE: There is enlargement of the pulmonary arteries suggestive of pulmonary hypertension. There is atherosclerosis of the aorta. MEDIASTINUM: There is no mediastinal lymphadenopathy by size criteria. RICHA: There is no hilar lymphadenopathy by size criteria. AIRWAY AND ESOPHAGUS: The airway is unremarkable, without endobronchial filling defect. The esophagus is grossly normal. LUNG PARENCHYMA: The lungs are clear. PLEURA: No pleural abnormalities are noted. BONES AND SOFT TISSUES: The patient is status post median sternotomy. Mild degenerative changes are noted. ABDOMEN/PELVIS: LIVER: The liver is normal in shape, size, contour, and attenuation. BILE DUCTS: There is no intrahepatic or extrahepatic biliary dilatation. GALLBLADDER: The gallbladder is normal, without pericholecystic inflammatory change. PANCREAS: The pancreas is normal, without mass or ductal dilatation. SPLEEN: Normal in size and appearance. There is no perisplenic fluid. UPPER GI TRACT: Evaluation of the gastrointestinal tract is limited by incomplete gastric distention. The upper GI tract is unremarkable. SMALL BOWEL \T\ MESENTERY: The small bowel is normal in contour, course, and caliber. There is no obstruction or dilatation. COLON: There is postsurgical change to the distal colon. ADRENALS: Normal bilaterally. KIDNEYS: The kidneys are normal in shape, size, contour, and axis. There is no hydronephrosis or nephrolithiasis. BLADDER: The bladder is smooth in contour. PELVIC ORGANS: The uterus and adnexa are grossly normal for technique. AORTA: There is calcific atherosclerotic disease of the abdominal aorta and its branches, without aneurysmal dilatation IVC: Unremarkable LYMPH NODES: There is no lymphadenopathy by size criteria. ABDOMINAL WALL: There is no evidence for abdominal wall hernia. BONES: There is diffuse osteopenia. Degenerative changes are noted of the spine. There is a calcified disc protrusion in the right lateral recess of L4-L5. This can be identified on the previous examination and is stable. There are minimally displaced fractures of the left superior and inferior pubic rami OTHER: There is no active arterial extravasation. IMPRESSION: 1. PULMONARY ARTERIAL HYPERTENSION. 2. ATHEROSCLEROSIS. 3. NO ACTIVE ARTERIAL EXTRAVASATION. 4. NO PERISPLENIC FLUID. 5. THERE ARE MINIMALLY DISPLACED FRACTURES OF THE LEFT SUPERIOR AND INFERIOR PUBIC RAMI
[2016-12-12] MEDS ORDERED: Ondansetron INJ* 2 MG/ML VIAL IV PRN (16:48)
[2016-12-12] MEDS ORDERED: Acetaminophen TAB* 325 MG PO PRN (16:48)
[2016-12-12] MEDS ORDERED: Ibuprofen TAB* 600 MG PO PRN (16:50)
--- NOTE | 2016-12-12 17:45 | PN ---
Progress Note - Progress Note Date of Service: 12/12/16 Note: Signed out from Molly Tabares PA-C at 3pm. CT results consistent with pubis fracture. Made patient aware of results. Called Dr. Lopez at 5pm who accepted patient. Peterson wrapped wrist for comfort.
[2016-12-12] MEDS ORDERED: oxyCODONE/Acetamin 5/325 MG* TAB PO PRN (19:00)
[2016-12-12] MEDS ORDERED: Morphine INJ* 2 MG/ML 1 ML SYRINGE IV PRN (19:00)
[2016-12-12] MEDS ORDERED: Meclizine TAB* 12.5 MG PO PRN (19:04)
[2016-12-12] MEDS ORDERED: Albuterol HFA INHALER* 8 gm MDI INH PRN (19:06)
[2016-12-12] MEDS ORDERED: hydrALAZINE IV* 20 MG/ML VIAL IV SLOW PU PRN (19:24)
[2016-12-12] MEDS: Enoxaparin(*) 40 MG/0.4 ML SYR SUBCUT SCH (20:45)
[2016-12-12 21:41] LABS: Urine Bilirubin Negative (Negative); Urine Glucose Negative (Negative); Urine Nitrite Negative (Negative)
--- NOTE | 2016-12-13 01:03 | HP ---
CC: Dr. Sol Jones * MEDICINE HISTORY AND PHYSICAL: DATE OF ADMISSION: 12/12/16 PROVIDER: Maria Fernanda Sorensen NP ATTENDING PHYSICIAN: Yamilex Mcgee MD * (as dictated by Maria Fernanda Sorensen NP). PRIMARY CARE PROVIDER: Dr. Sol Jones. CHIEF COMPLAINT: Fall. HISTORY OF PRESENT ILLNESS: Ms. Ramirez is a very pleasant 71-year-old female who presents today after sustaining a fall at a friend's house. The patient said that she was helping a friend from [employer] with a yard sale, was taking out some items and thought there was a step below the porch and missed step that went down. The patient states that she landed very hard, so hard that her sneaker fell off and she landed on the ground on her left side. She denies any head injury or loss of consciousness. She does report a left wrist pain, left flank pain, left hip pain and pelvic pain. Upon evaluation in the ER, the patient had concern for a left rib fracture of the sixth rib as well as minimally displaced fracture of the left inferior and superior pubic rami. The patient had imaging of her left wrist, which showed no acute osseous injury, but it was difficult to read secondary to degenerative changes. The patient also had a CT of the chest, abdomen and pelvis given the patient's trauma, which showed pulmonary arterial hypertension, atherosclerosis, no active arterial extravasation, no perisplenic fluid and minimally displaced fractures of the left superior and inferior pubic rami. Prior to this episode, the patient reports that she was doing very well. She recently had a medication adjusted by her lumber press operator back in November and denies any recent illness. She reports good energy level and the only complaint she has endorsed is a previous history earlier in November where she had pressure with urination x6 weeks. It was initially thought to be a diverticulitis before she was treated and then did recently have a CT of the abdomen and pelvis on as an outpatient, which shows no acute pathology. PAST MEDICAL HISTORY: Significant for: 1. Rheumatic heart disease. 2. Chronic left pleural effusion. 3. Coronary artery disease. 4. History of atrial fibrillation and atrial flutter. 5. Hypertension. 6. Diverticulitis, status post sigmoid colon resection. 7. History of TIA. 8. GERD. 9. Vertigo. 10. BENJAMIN, the patient uses CPAP. 11. Seizure. 12. CHF. PAST SURGICAL HISTORY: 1. Tricuspid repair. 2. Mitral valve and aortic valve repair. 3. Pacemaker placement. 4. History of cardiac catheterization. 5. Colon resection 6. Oophorectomy. HOME MEDICATIONS: 1. Albuterol 2 puffs inhaled 4 times a day p.r.n. 2. Lactobacillus 1 capsule daily. 3. Acetaminophen 650 mg 4 times a day p.r.n. 4. Multivitamin 1 tab daily. 5. Meclizine 12.5 mg t.i.d. p.r.n. 6. Vitamin D 1 tab daily. 7. Spironolactone/hydrochlorothiazide 25/25. The patient takes this medication once every 4 days, next due 12/13/16. ALLERGIES: Include PENICILLIN, BACTRIM, AZITHROMYCIN, DOXYCYCLINE, METOPROLOL, SIMVASTATIN and SULFA DRUGS. FAMILY HISTORY: The patient reports the mother who had mitral valve prolapse and the father who had history of alcohol abuse. SOCIAL HISTORY: The patient is a nonsmoker. She denies alcohol use. Her daughter, Nora Chin, is her surrogate decision maker and healthcare proxy. REVIEW OF SYSTEMS: A 14-point review of systems was completed. All pertinent positives and negatives are included in the HPI. All those not mentioned are negative. PHYSICAL EXAMINATION GENERAL: Ms. Ramirez is a very pleasant 71-year-old female, who is sitting up in the hospital bed, in no acute distress. VITAL SIGNS: Temperature 98.5, heart rate 85, respiratory rate 18, blood pressure 179/75, and O2 saturation 100% on room air. HEENT: Head is atraumatic, normocephalic. Face is symmetrical. Pupils are equal, round, and reactive to light. Extraocular movements are intact. Sclerae are anicteric. No evidence of periorbital edema or bruising. Oral mucosa appears moist. NECK: Supple. The patient has full range of motion. No JVD noted. LUNGS: Lungs are clear to auscultation. No accessory muscle use noted. HEART: S1, S2 heart sounds. Regular rate and rhythm. No murmurs, rubs, or gallops. There is no peripheral edema. Distal pulses are 2+ bilaterally and symmetrical. ABDOMEN: Soft, nontender, nondistended. Bowel sounds are present times all 4 quadrants. MUSCULOSKELETAL: There is tenderness on the left rig cage with palpation. There is limited active range of motion in the left lower extremity secondary to pain. The patient does allow for active movement of the extremity and appears to have range of motion. Right extremity has full range of motion. No obvious deformity or ecchymosis noted to the left lower extremity or left rib cage at this time. Left wrist, the patient has good distal movement of the fingers. There is good distal sensation and brisk capillary refill. The patient is able to flex and extend the wrist with some pain, but range of motion is intact. SKIN: Bruising noted to the right upper extremity. NEUROLOGIC: The patient is able to move all extremities. There are no focal deficits. She is following commands. Sensation is intact to light touch to the bilateral lower extremities. PSYCH: The patient is alert and oriented x3. Affect is appropriate. LABORATORY DATA AND DIAGNOSTIC STUDIES: CBC: WBC is 12.7, hemoglobin 14.4, hematocrit 44, platelet count 172. CMP: Sodium 139, potassium 3.7, chloride 106, carbon dioxide 26, BUN 15, creatinine 0.71, glucose 86, lactic acid 0.6, calcium 10.1, total bilirubin 0.7, AST 30, ALT 25, alk phos 58, albumin 4.7. The patient had a CT of the abdomen, chest and pelvis as per above. X-rays of the femur, pelvis, and ribs as per above. Femur x-ray was negative for acute osseous injury. ASSESSMENT AND PLAN: Ms. Ramirez is a 71-year-old who unfortunately sustained a fall and is now admitted with concern for intractable pain and pelvic fracture. Plan is as follows: 1. Pelvic fracture with left sixth rib fracture. Admit to the medicine floor. The patient will be ordered physical therapy and occupational therapy to help the patient to begin her rehab for these injuries. She may benefit from [facility] subacute rehab. She is very motivated to get up and get moving. At this time, we will make her weightbearing as tolerated. The patient encouraged to utilize ice to the sore areas of her body. I also ordered her incentive spirometer and encouraged her to ask for pain medication in order to best manage her pain so that she can participate with physical therapy. The patient does live alone, but does have family support. 2. Leukocytosis. I suspect this is a leukemoid reaction to a recent trauma. Recheck CBC tomorrow. 3. History of coronary artery disease, rheumatic heart disease and atrial fibrillation and atrial flutter. The patient is not symptomatic and is currently in normal sinus rhythm. Apparently, she was having quite a bit of intolerance of her medications and was having weakness at home and has been discontinued from her atenolol, so she is only currently taking spironolactone and hydrochlorothiazide every 4 days with good control of her chronic disease. Continue current regimen and continue to monitor. No acute concern at this time. 4. Left wrist pain. Continue range of motion exercises, again utilize PT/OT. 5. Hypertension. Continue spironolactone and hydrochlorothiazide as ordered. We will also order p.r.n. hydralazine if needed. 6. History of vertigo. Continue p.r.n. meclizine. 7. FEN: The patient was ordered a heart healthy diet. 8. DVT prophylaxis. She is ordered subcutaneous Lovenox. She is highest risk. 9. Code status. The patient is a full code. TIME SPENT: Time spent on this admission is 60 minutes, more than half the time was spent [id number] with the patient obtaining history and physical, performing the physical examination, and reviewing the plan of care. Plan of care was also reviewed with my attending, Dr. Mcgee, who is in agreement. MARIA FERNANDA SORENSEN, [place] [id number]/CPS #: [id number] KIARA
[2016-12-13] MEDS: Ketorolac INJ* 30 MG/ML 1 ML VIAL IV PUSH PRN ×4 (01:27→20:31)
[2016-12-13] MEDS: Lidocaine Patch REMOVE* 1 NOTE MISC SCH ×2 (01:41→21:09)
[2016-12-13 08:58] LABS: Hematocrit 38 % (35-47); Hemoglobin 12.6 g/dl (12.0-16.0); Mean Corpuscular HGB Conc 34 g/dl (31-36); Mean Corpuscular Hemoglobin 31 pg (27-31); Mean Corpuscular Volume 92 fL (80-97); Mean Platelet Volume 9 um3 (7.4-10.4); Red Blood Count 4.05 10^6/ul (4.0-5.4); Red Cell Distribution Width 13 % (10.5-15); White Blood Count 5.2 10^3/ul (3.5-10.8)
[2016-12-13] MEDS ORDERED: Spironolactone/HCTZ 25-25 MG* 1 TAB PO SCH (09:00)
[2016-12-13] MEDS: Cholecalciferol TAB* 400 UNIT PO SCH (09:13)
[2016-12-13] MEDS: Lactobacillus Acidophilu (GG)* 1 CAP CAP PO SCH (09:13)
[2016-12-13] MEDS: Vitamin THERAPEUTIC TAB PO SCH (09:13)
[2016-12-13] MEDS: Lidocaine PATCH 5%* 1 PATCH TRANSDERM SCH (09:14)
[2016-12-13] MEDS: Docusate CAP* 100 MG PO PRN (09:17)
[2016-12-13 09:23] LABS: BUN/Creatinine Ratio 23.9 (8-20); Calcium 9.2 mg/dL (8.6-10.3); EGFR African American 112.2 (>60); EGFR Non-African American 87.3 (>60)
--- NOTE | 2016-12-13 12:13 | PN ---
Subjective Date of Service: 12/13/16 Interval History: Pain continues but feels a little improved. Feels very motivated No SOB or difficulty breathing Objective Active Medications: Acetaminophen (Tylenol Tab*) 650 mg PO Q4H PRN PRN Reason: FEVER/PAIN Albuterol (Ventolin Hfa Inhaler*) 2 puff INH Q4H PRN PRN Reason: SOB/WHEEZING Cholecalciferol (Vitamin D Tab*) 400 unit PO DAILY [facility] Last Admin: 12/13/16 09:13 Dose: 400 unit Docusate Sodium (Colace Cap*) 100 mg PO BID PRN PRN Reason: CONSTIPATION Last Admin: 12/13/16 09:17 Dose: 100 mg Enoxaparin Sodium (Lovenox(*)) 40 mg SUBCUT Q24H [facility] Last Admin: 12/12/16 20:45 Dose: 40 mg HCTZ/Spironolactone (Aldactazide 25-25*) 0.5 tab PO Q96H [facility] Last Admin: 12/13/16 09:13 Dose: 0.5 tab Hydralazine HCl (Apresoline Iv*) 5 mg IV SLOW PU Q6H PRN PRN Reason: BLOOD PRESSURE Ketorolac Tromethamine (Toradol Inj*) 30 mg IV PUSH Q6H PRN PRN Reason: PAIN Last Admin: 12/13/16 09:33 Dose: 30 mg Lactobacillus Rhamnosus (Culturelle*) 1 cap PO DAILY [facility] Last Admin: 12/13/16 09:13 Dose: 1 cap Lidocaine (Lidoderm 5% Patch*) 1 patch TRANSDERM DAILY [facility] Last Admin: 12/13/16 09:14 Dose: 1 patch Meclizine HCl (Antivert Tab*) 12.5 mg PO TID PRN PRN Reason: DIZZINESS Morphine Sulfate (Morphine Inj (Syringe)*) 2 mg IV Q4H PRN PRN Reason: PAIN - MILD Last Admin: 12/12/16 23:27 Dose: 2 mg Multivitamins (Theragran Tab*) 1 tab PO DAILY [facility] Last Admin: 12/13/16 09:13 Dose: 1 tab Ondansetron HCl (Zofran Inj*) 4 mg IV Q6H PRN PRN Reason: NAUSEA/VOMITING Oxycodone/Acetaminophen (Percocet 5/325 Tab*) 1 tab PO Q4H PRN PRN Reason: PAIN Oxycodone/Acetaminophen (Percocet 5/325 Tab*) 2 tab PO Q4H PRN PRN Reason: PAIN Pharmacy Profile Note (Lidocaine Patch Remove*) 1 note N/A 2099 [facility]AN Last Admin: 12/13/16 01:41 Dose: Not Given Polyethylene Glycol/Electrolytes (Miralax*) 17 gm PO DAILY PRN PRN Reason: CONSTIPATION Senna (Senokot Tab*) 2 tab PO BEDTIME PRN PRN Reason: CONSTIPATION Oxygen Devices in Use Now: None Appearance: NAD Eyes: No Scleral Icterus, PERRLA Ears/Nose/Mouth/Throat: Clear Oropharnyx, Mucous Membranes Moist Neck: NL Appearance and Movements; NL JVP, Trachea Midline Respiratory: Symmetrical Chest Expansion and Respiratory Effort, Clear to Auscultation Cardiovascular: RRR, - - 2/6 EDUARDO Abdominal: NL Sounds; No Tenderness; No Distention, No Hepatosplenomegaly Lymphatic: No Cervical Adenopathy Extremities: No Edema, No Clubbing, Cyanosis, - - pain with external rotation of left hip Neurological: Alert and Oriented x 3 Result Diagrams: 12/13/16 08:22 12/13/16 08:11 Assess/Plan/Problems-Billing Assessment: 71 yo F h/o osteoporosis, HTN, BENJAMIN, who suffered a fall c/b rib fracture a pelvic insufficiency fractures - Patient Problems (1) Left rib fracture Comment: pain control (2) Insufficiency fracture of pelvis Comment: pain ocntrol mobilize PT/OT (3) BENJAMIN (obstructive sleep apnea) Comment: CPAP (4) Hypertension Comment: HCTZ/aldactone (5) DVT prophylaxis Comment: lovenox
[2016-12-13] MEDS: Enoxaparin(*) 40 MG/0.4 ML SYR SUBCUT SCH (20:31)
[2016-12-14] MEDS: Ketorolac INJ* 30 MG/ML 1 ML VIAL IV PUSH PRN (04:06)
[2016-12-14] MEDS: oxyCODONE/Acetamin 5/325 MG* TAB PO PRN ×5 (05:33→22:57)
[2016-12-14] MEDS: Lidocaine PATCH 5%* 1 PATCH TRANSDERM SCH (09:34)
[2016-12-14] MEDS: Lactobacillus Acidophilu (GG)* 1 CAP CAP PO SCH (09:34)
[2016-12-14] MEDS: Vitamin THERAPEUTIC TAB PO SCH (09:34)
[2016-12-14] MEDS: Cholecalciferol TAB* 400 UNIT PO SCH (09:34)
[2016-12-14] MEDS ORDERED: Artificial Tears* 15 ML BTL BOTH EYES PRN (09:56)
[2016-12-14] MEDS ORDERED: Ondansetron ODT TAB* 4 MG PO PRN (13:57)
[2016-12-14] MEDS: Docusate CAP* 100 MG PO PRN (14:33)
[2016-12-14] MEDS: Ibuprofen TAB* 600 MG PO PRN (14:37)
--- NOTE | 2016-12-14 17:49 | PN ---
Subjective Date of Service: 12/14/16 Interval History: Walking to bathroom but with some pain Feels very strongly she can not return home 2/2 inability to stand long enough to prepare food, get to bathroom, or climb stairs Objective Active Medications: Acetaminophen (Tylenol Tab*) 650 mg PO Q4H PRN PRN Reason: FEVER/PAIN Albuterol (Ventolin Hfa Inhaler*) 2 puff INH Q4H PRN PRN Reason: SOB/WHEEZING Cholecalciferol (Vitamin D Tab*) 400 unit PO DAILY [facility] Last Admin: 12/14/16 09:34 Dose: 400 unit Docusate Sodium (Colace Cap*) 100 mg PO BID PRN PRN Reason: CONSTIPATION Last Admin: 12/14/16 14:33 Dose: 100 mg Enoxaparin Sodium (Lovenox(*)) 40 mg SUBCUT Q24H [facility] Last Admin: 12/13/16 20:31 Dose: 40 mg HCTZ/Spironolactone (Aldactazide 25-25*) 0.5 tab PO Q96H [facility] Last Admin: 12/13/16 09:13 Dose: 0.5 tab Hydralazine HCl (Apresoline Iv*) 5 mg IV SLOW PU Q6H PRN PRN Reason: BLOOD PRESSURE Ibuprofen (Motrin Tab*) 600 mg PO Q8H PRN PRN Reason: PAIN Last Admin: 12/14/16 14:37 Dose: 600 mg Lactobacillus Rhamnosus (Culturelle*) 1 cap PO DAILY [facility] Last Admin: 12/14/16 09:34 Dose: 1 cap Lidocaine (Lidoderm 5% Patch*) 1 patch TRANSDERM DAILY [facility] Last Admin: 12/14/16 09:34 Dose: 1 patch Meclizine HCl (Antivert Tab*) 12.5 mg PO TID PRN PRN Reason: DIZZINESS Multivitamins (Theragran Tab*) 1 tab PO DAILY [facility] Last Admin: 12/14/16 09:34 Dose: 1 tab Ondansetron HCl (Zofran Inj*) 4 mg IV Q6H PRN PRN Reason: NAUSEA/VOMITING Ondansetron HCl (Zofran Odt Tab*) 4 mg PO Q6H PRN PRN Reason: NAUSEA Oxycodone/Acetaminophen (Percocet 5/325 Tab*) 1 tab PO Q4H PRN PRN Reason: PAIN Last Admin: 12/14/16 14:33 Dose: 1 tab Oxycodone/Acetaminophen (Percocet 5/325 Tab*) 2 tab PO Q4H PRN PRN Reason: PAIN Pharmacy Profile Note (Lidocaine Patch Remove*) 1 note N/A 2100 [facility]AN Last Admin: 12/13/16 21:09 Dose: 1 note Polyethylene Glycol/Electrolytes (Miralax*) 17 gm PO DAILY PRN PRN Reason: CONSTIPATION Polyvinyl Alcohol (Polyvinyl Alcohol 1.4% Opth*) 2 drop BOTH EYES Q2H PRN PRN Reason: DRY EYE Last Admin: 12/14/16 14:33 Dose: 2 drop Senna (Senokot Tab*) 2 tab PO BEDTIME PRN PRN Reason: CONSTIPATION Vital Signs 12/13/16 12/13/16 12/13/16 19:25 20:00 23:31 Temperature 98.4 F 97.8 F Pulse Rate 70 70 Respiratory 16 16 16 Rate Blood Pressure 150/55 128/57 (mmHg) O2 Sat by Pulse 99 98 Oximetry 12/14/16 12/14/16 12/14/16 04:34 05:33 07:33 Temperature 98.2 F Pulse Rate 71 Respiratory 16 18 15 Rate Blood Pressure 133/60 (mmHg) O2 Sat by Pulse 98 Oximetry 12/14/16 12/14/16 12/14/16 07:51 08:00 09:38 Temperature 97.9 F Pulse Rate 71 Respiratory 16 16 17 Rate Blood Pressure 129/61 (mmHg) O2 Sat by Pulse 98 Oximetry 12/14/16 12/14/16 12/14/16 11:18 11:38 14:33 Temperature 97.9 F Pulse Rate 70 Respiratory 16 17 17 Rate Blood Pressure 120/68 (mmHg) O2 Sat by Pulse 100 Oximetry 12/14/16 15:18 Temperature 98.8 F Pulse Rate 70 Respiratory 17 Rate Blood Pressure 149/57 (mmHg) O2 Sat by Pulse 100 Oximetry Oxygen Devices in Use Now: None Appearance: NAD Eyes: No Scleral Icterus, PERRLA Ears/Nose/Mouth/Throat: NL Teeth, Lips, Gums, Clear Oropharnyx, Mucous Membranes Moist Neck: NL Appearance and Movements; NL JVP, Trachea Midline Respiratory: Symmetrical Chest Expansion and Respiratory Effort, Clear to Auscultation Cardiovascular: NL Sounds; No Murmurs; No JVD, RRR Abdominal: NL Sounds; No Tenderness; No Distention, No Hepatosplenomegaly Lymphatic: No Cervical Adenopathy Extremities: No Edema Neurological: Alert and Oriented x 3 Result Diagrams: 12/13/16 08:22 12/13/16 08:11 Assess/Plan/Problems-Billing Assessment: 71 yo F h/o osteoporosis, HTN, BENJAMIN, who suffered a fall c/b rib fracture a pelvic insufficiency fractures - Patient Problems (1) Left rib fracture Comment: pain control (2) Insufficiency fracture of pelvis Comment: pain control mobilize PT/OT (3) BENJAMIN (obstructive sleep apnea) Comment: CPAP (4) Hypertension Comment: HCTZ/aldactone (5) DVT prophylaxis Comment: lovenox
[2016-12-14] MEDS: Enoxaparin(*) 40 MG/0.4 ML SYR SUBCUT SCH (20:54)
[2016-12-14] MEDS: Lidocaine Patch REMOVE* 1 NOTE MISC SCH (21:53)
[2016-12-15] MEDS: oxyCODONE/Acetamin 5/325 MG* TAB PO PRN ×4 (06:57→23:57)
[2016-12-15] MEDS: Ibuprofen TAB* 600 MG PO PRN ×2 (06:59→14:42)
[2016-12-15] MEDS: Lidocaine PATCH 5%* 1 PATCH TRANSDERM SCH (08:54)
[2016-12-15] MEDS: Lactobacillus Acidophilu (GG)* 1 CAP CAP PO SCH (08:54)
[2016-12-15] MEDS: Cholecalciferol TAB* 400 UNIT PO SCH (08:54)
[2016-12-15] MEDS: Vitamin THERAPEUTIC TAB PO SCH (08:54)
[2016-12-15] MEDS: Polyethylene Glycol 3350* 17 GM PACKET PO PRN (14:43)
--- NOTE | 2016-12-15 16:31 | PN ---
Subjective Date of Service: 12/15/16 Interval History: painful after PT. feels very motivated. Objective Active Medications: Acetaminophen (Tylenol Tab*) 650 mg PO Q4H PRN PRN Reason: FEVER/PAIN Albuterol (Ventolin Hfa Inhaler*) 2 puff INH Q4H PRN PRN Reason: SOB/WHEEZING Cholecalciferol (Vitamin D Tab*) 400 unit PO DAILY [facility] Last Admin: 12/15/16 08:54 Dose: 400 unit Docusate Sodium (Colace Cap*) 100 mg PO BID PRN PRN Reason: CONSTIPATION Last Admin: 12/14/16 14:33 Dose: 100 mg Enoxaparin Sodium (Lovenox(*)) 40 mg SUBCUT Q24H [facility] Last Admin: 12/14/16 20:54 Dose: 40 mg HCTZ/Spironolactone (Aldactazide 25-25*) 0.5 tab PO Q96H [facility] Last Admin: 12/13/16 09:13 Dose: 0.5 tab Hydralazine HCl (Apresoline Iv*) 5 mg IV SLOW PU Q6H PRN PRN Reason: BLOOD PRESSURE Ibuprofen (Motrin Tab*) 600 mg PO Q8H PRN PRN Reason: PAIN Last Admin: 12/15/16 14:42 Dose: 600 mg Lactobacillus Rhamnosus (Culturelle*) 1 cap PO DAILY [facility] Last Admin: 12/15/16 08:54 Dose: 1 cap Lidocaine (Lidoderm 5% Patch*) 1 patch TRANSDERM DAILY [facility] Last Admin: 12/15/16 08:54 Dose: 1 patch Meclizine HCl (Antivert Tab*) 12.5 mg PO TID PRN PRN Reason: DIZZINESS Multivitamins (Theragran Tab*) 1 tab PO DAILY [facility] Last Admin: 12/15/16 08:54 Dose: 1 tab Ondansetron HCl (Zofran Inj*) 4 mg IV Q6H PRN PRN Reason: NAUSEA/VOMITING Ondansetron HCl (Zofran Odt Tab*) 4 mg PO Q6H PRN PRN Reason: NAUSEA Oxycodone/Acetaminophen (Percocet 5/325 Tab*) 1 tab PO Q4H PRN PRN Reason: PAIN Last Admin: 12/15/16 14:42 Dose: 1 tab Oxycodone/Acetaminophen (Percocet 5/325 Tab*) 2 tab PO Q4H PRN PRN Reason: PAIN Pharmacy Profile Note (Lidocaine Patch Remove*) 1 note N/A [address] [facility] Last Admin: 12/14/16 21:53 Dose: 1 note Polyethylene Glycol/Electrolytes (Miralax*) 17 gm PO DAILY PRN PRN Reason: CONSTIPATION Last Admin: 12/15/16 14:43 Dose: 17 gm Polyvinyl Alcohol (Polyvinyl Alcohol 1.4% Opth*) 2 drop BOTH EYES Q2H PRN PRN Reason: DRY EYE Last Admin: 12/14/16 14:33 Dose: 2 drop Senna (Senokot Tab*) 2 tab PO BEDTIME PRN PRN Reason: CONSTIPATION Vital Signs 12/14/16 12/14/16 12/14/16 16:33 18:31 20:00 Temperature Pulse Rate Respiratory 16 16 16 Rate Blood Pressure (mmHg) O2 Sat by Pulse Oximetry 12/14/16 12/14/16 12/14/16 20:01 20:31 22:57 Temperature Pulse Rate 70 Respiratory 16 18 16 Rate Blood Pressure 117/55 (mmHg) O2 Sat by Pulse 97 Oximetry 12/14/16 12/15/16 12/15/16 23:57 00:57 04:18 Temperature 97.4 F 97.7 F Pulse Rate 73 70 Respiratory 16 18 16 Rate Blood Pressure 104/52 103/52 (mmHg) O2 Sat by Pulse 98 100 Oximetry 12/15/16 12/15/16 12/15/16 06:57 07:56 08:00 Temperature 98.4 F Pulse Rate 70 Respiratory 18 16 16 Rate Blood Pressure 113/54 (mmHg) O2 Sat by Pulse 100 Oximetry 12/15/16 12/15/16 12/15/16 08:23 08:57 14:42 Temperature Pulse Rate 17 Respiratory 65 17 17 Rate Blood Pressure (mmHg) O2 Sat by Pulse 99 Oximetry 12/15/16 15:51 Temperature 98.0 F Pulse Rate 70 Respiratory 16 Rate Blood Pressure 110/54 (mmHg) O2 Sat by Pulse 100 Oximetry Oxygen Devices in Use Now: None Appearance: NAD Eyes: No Scleral Icterus, PERRLA Ears/Nose/Mouth/Throat: NL Teeth, Lips, Gums, Clear Oropharnyx, Mucous Membranes Moist Neck: NL Appearance and Movements; NL JVP, Trachea Midline Respiratory: Symmetrical Chest Expansion and Respiratory Effort, Clear to Auscultation Cardiovascular: RRR Abdominal: NL Sounds; No Tenderness; No Distention, No Hepatosplenomegaly Lymphatic: No Cervical Adenopathy Extremities: No Edema Neurological: Alert and Oriented x 3 Result Diagrams: 12/13/16 08:22 12/13/16 08:11 Assess/Plan/Problems-Billing Assessment: 71 yo F h/o osteoporosis, HTN, BENJAMIN, who suffered a fall c/b rib fracture a pelvic insufficiency fractures - Patient Problems (1) Left rib fracture Comment: pain control (2) Insufficiency fracture of pelvis Comment: pain control mobilize PT/OT (3) BENJAMIN (obstructive sleep apnea) Comment: CPAP (4) Hypertension Comment: HCTZ/aldactone (5) DVT prophylaxis Comment: lovenox Status and Disposition: to [facility] tomorrow
[2016-12-15] MEDS: Senna TAB PO PRN (20:21)
[2016-12-15] MEDS: Lidocaine Patch REMOVE* 1 NOTE MISC SCH (20:21)
[2016-12-15] MEDS: Docusate CAP* 100 MG PO PRN (20:21)
[2016-12-15] MEDS: Enoxaparin(*) 40 MG/0.4 ML SYR SUBCUT SCH (20:21)
[2016-12-16] MEDS: Ibuprofen TAB* 600 MG PO PRN (07:08)
[2016-12-16] MEDS: oxyCODONE/Acetamin 5/325 MG* TAB PO PRN ×2 (07:08→12:47)
[2016-12-16 09:04] VITALS: BP 132/57
[2016-12-16] MEDS: Cholecalciferol TAB* 400 UNIT PO SCH (09:38)
[2016-12-16] MEDS: Vitamin THERAPEUTIC TAB PO SCH (09:38)
[2016-12-16] MEDS: Lidocaine PATCH 5%* 1 PATCH TRANSDERM SCH (09:38)
[2016-12-16] MEDS: Lactobacillus Acidophilu (GG)* 1 CAP CAP PO SCH (09:38)
[2016-12-16] MEDS: Docusate CAP* 100 MG PO PRN (12:47)
[2016-12-16] MEDS: Polyethylene Glycol 3350* 17 GM PACKET PO PRN (12:47)
[2016-12-16] MEDS: Senna TAB PO PRN (12:47)
--- NOTE | 2016-12-16 13:16 | DS ---
CC: Dr. Jones * DISCHARGE SUMMARY: DATE OF ADMISSION: 12/12/16 DATE OF DISCHARGE: 12/16/16 PRIMARY CARE PROVIDER: Dr. Jones. DISPOSITION ON DISCHARGE: To [facility]. MEDICATIONS ON DISCHARGE: 1. Albuterol sulfate 2 puffs 4 times a day as needed for shortness of breath or wheeze. 2. Probiotic 1 cap daily. 3. Acetaminophen 650 mg 4 times a day as needed for pain or fever. 4. Multivitamin 1 tab daily. 5. Meclizine 12.5 mg 3 times a day as needed for vertigo. 6. Vitamin D 1 tab daily. 7. Spironolactone/hydrochlorothiazide 25/25 one-half tablet every 4 days. 8. Percocet 5/325 one tab every 4 hours as needed for pain or fever. 9. Senna 2 tabs at bedtime as needed for constipation. 10. MiraLAX 17 g daily as needed for constipation. 11. Ondansetron ODT 4 mg every 6 hours as needed for nausea. 12. Lidocaine patch 5% apply transdermally, change every 3 days. 13. Ibuprofen 600 mg 3 times a day as needed for pain. 14. Docusate 100 mg twice daily as needed for constipation. PERTINENT IMAGING STUDIES: 1. Chest, abdomen, and pelvis CAT scan, impression: Minimally displaced fractures of the left superior and inferior pubic rami. Diffuse osteopenia. 2. Ribs with chest x-ray, impression: Minimally displaced left 6th rib fracture, no appreciable pneumothorax. PRIMARY DIAGNOSES: 1. Pelvic insufficiency fracture. 2. Left 6th rib fracture. SECONDARY DIAGNOSES: 1. Rheumatoid arthritis. 2. Chronic left pleural effusion. 3. Coronary artery disease. 4. History of atrial fibrillation and atrial flutter. 5. Hypertension. 6. Diverticulitis, status post colon resection. 7. History of transient ischemic attack. 8. Vertigo. 9. Gastroesophageal reflux disease. 10. Obstructive sleep apnea, on CPAP. 11. History of seizures. 12. Congestive heart failure. HISTORY OF PRESENT ILLNESS AND HOSPITAL COURSE: This is a pleasant 71-year-old female with past medical history as outlined in the history of present illness on the day of admission been in her usual state of health had a mechanical fall resulting in pelvic insufficiency fracture as well as left 6th minimally displaced rib fracture. She was admitted to the hospital for uncontrolled pain as well as PT evaluation. She has 4 steps to enter her home and with current level of pain was unable to care for herself at home. She was treated for pain , managed with physical therapy and occupational therapy while in the hospital, and will be placed at [facility] for continued PT/OT. She is quite motivated. Her pain was improved, mostly using Motrin and Tylenol; however, also using Percocet when working with physical therapy or needing to ambulate. She is currently ambulating with a walker, improved at the time of discharge. We expect the patient will do very well at [facility] and return home after hopefully a short stay. There were no complications during the patient's hospital stay. Only medication changes were for bowel regimen as well as pain medications. FOLLOWUP: At followup, please: 1. Evaluate for continued pain relief and progress and physical therapy. 2. No other specific labs or vitals that need followup. Reasons to return to the hospital include but are not limited to recurrent or worsening symptoms, worsening or uncontrolled pain, weakness, numbness, fevers, chills or night sweats, chest pain, shortness of breath, loss of consciousness or near loss of consciousness, bleeding from any source were discussed with the patient, she acknowledged understanding. TIME SPENT: Greater than 45 minutes was spent on discharge of this patient; greater than half was [id number] with the patient. [id number]/[facility] #: [id number] KIARA
== END 2016-12-16 13:45 | DRG 536 ==
LOC: ED 11:27 → MED 16:20 → OBSVTOIN 12-13 10:47
PROVIDERS: ADMIT Internal Medicine; ATTEND Internal Medicine
DX: S32.512A Fracture of superior rim of left pubis, initial encounter for closed fracture (principal); J90 Pleural effusion, not elsewhere classified; I11.0 Hypertensive heart disease with heart failure; I50.9 Heart failure, unspecified; I48.91 Unspecified atrial fibrillation; I48.92 Unspecified atrial flutter; S22.32XA Fracture of one rib, left side, initial encounter for closed fracture; G47.33 Obstructive sleep apnea (adult) (pediatric); G40.909 Epilepsy, unspecified, not intractable, without status epilepticus; D72.829 Elevated white blood cell count, unspecified; W10.8XXA Fall (on) (from) other stairs and steps, initial encounter; Y92.008 Other place in unspecified non-institutional (private) residence as the place of occurrence of the external cause; M06.9 Rheumatoid arthritis, unspecified; I25.10 Atherosclerotic heart disease of native coronary artery without angina pectoris; K21.9 Gastro-esophageal reflux disease without esophagitis; Z95.0 Presence of cardiac pacemaker; Z79.899 Other long term (current) drug therapy; Z88.1 Allergy status to other antibiotic agents; Z88.0 Allergy status to penicillin; Z88.2 Allergy status to sulfonamides; Z88.8 Allergy status to other drugs, medicaments and biological substances; Z82.49 Family history of ischemic heart disease and other diseases of the circulatory system; Z81.1 Family history of alcohol abuse and dependence; M25.532 Pain in left wrist
CPT/HCPCS: 36415; 71260; 72170; 74177; 80048; 80053; 81003; 83605; 85025; A9270-GY; G0378; J1650; J1885; J2270; Q9967

== ENCOUNTER 2017-07-05 19:43 | Observation (INO) | payer MEDICARE, MEDICAID ==
[2017-07-05 21:05] LABS: ABS Basophils 0 10^3/ul (0-0.2); ABS Eosinophils 0.1 10^3/ul (0-0.6); ABS Lymphocytes 0.9 10^3/ul (1.0-4.8); ABS Monocytes 0.5 10^3/ul (0-0.8); ABS Neutrophils 5.4 10^3/ul (1.5-7.7); ABS Nucleated RBC 0 10^3/ul; Hematocrit 38 % (35-47); Lymphocyte % 12.7 % (25-47); Mean Corpuscular HGB Conc 34 g/dl (31-36); Mean Corpuscular Hemoglobin 31 pg (27-31); Mean Corpuscular Volume 91 fL (80-97); Mean Platelet Volume 8 um3 (7.4-10.4); Nucleated Red Blood Cells % 0.1; Platelet Count 166 10^3/ul (150-450); Red Blood Count 4.24 10^6/ul (4.0-5.4); Red Cell Distribution Width 14 % (10.5-15); White Blood Count 6.9 10^3/ul (3.5-10.8)
--- NOTE | 2017-07-05 21:07 | RAD ---
INDICATION: TIA. COMPARISON: Comparison is made with a prior study from October 22, 2016. TECHNIQUE: A portable view of the chest was obtained. FINDINGS: The patient appears to be status post coronary artery bypass surgery. There is a multilead transvenous pacemaker present. The heart is within normal limits in size. The lungs are clear. There is blunting of the costophrenic angles consistent with trace pleural effusions versus pleural thickening which appears similar to the prior study. IMPRESSION: TRACE PLEURAL EFFUSIONS VERSUS PLEURAL THICKENING.
[2017-07-05 21:20] LABS: EGFR Non-African American 63.7 (>60)
[2017-07-05 21:21] LABS: INR 0.95 (0.77-1.02)
--- NOTE | 2017-07-05 23:16 | ED ---
Justin Ruvalcaba Thomas, scribed for Tanvir Roberts on 07/05/17 at 2010 . Neurological HPI - HPI Summary HPI Summary: The patient is a 71 year old female presenting to the emergency department complaining of a 90-minute episode of confusion that is relieved by time of evaluation in the emergency department. She describes I was just feeling off. I m having a hard time remembering. The patient denies any pain, weakness, and numbness. The patient has a history of TIA, HTN, A-Fib, CAD, and a pacemaker. The patient is accompanied by her daughter. - History of Current Complaint Chief Complaint: EDNeurologicalDeficit Stated Complaint: POSS STROKE Time Seen by Provider: 07/05/17 20:06 Hx Obtained From: Patient Onset/Duration: Resolved Timing: Intermittent Episodes Lasting: - 90 minutes Onset Severity: Moderate Current Severity: None Pain Intensity: 0 Pain Scale Used: 0-10 Numeric Aggravating: Nothing Alleviating: Spontanious Resolution Associated Signs and Symptoms: Positive: Negative - pain, weakness, numbness, Confusion - Additional Pertinent History Primary Care Physician: DILLAN - Allergy/Home Medications Allergies/Adverse Reactions: Allergies Allergy/AdvReac Type Severity Reaction Status Date / Time Penicillins Allergy Intermediate Rash Verified 07/05/17 19:52 Sulfamethoxazole Allergy Intermediate See Comment Verified 07/05/17 19:52 w/Trimethoprim [From Bactrim] Azithromycin Allergy Unknown Unknown Verified 07/05/17 19:52 Reaction Details Doxycycline Allergy Unknown Unknown Verified 07/05/17 19:52 Reaction Details Metoprolol Allergy Unknown Unknown Verified 07/05/17 19:52 Reaction Details Simvastatin [From Zocor] Allergy Unknown Unknown Verified 07/05/17 19:52 Reaction Details Sulfa Drugs Allergy Unknown Unknown Verified 07/05/17 19:52 Reaction Details Home Medications: Home Medications Albuterol HFA INHALER* [Ventolin HFA Inhaler*] 2 puff INH Q4H PRN 07/05/17 [ History Confirmed 07/05/17] Gabapentin CAP(*) [Neurontin 100 mg CAP(*)] 200 mg PO BEDTIME 07/05/17 [History Confirmed 07/05/17] Multivitamins/Minerals TAB* [Theragran/minerals TAB*] 1 tab PO DAILY 07/05/17 [ History Confirmed 07/05/17] PMH/Surg Hx/FS Hx/Imm Hx Endocrine/Hematology History: Reports: Hx Anticoagulant Therapy, Hx Anemia Denies: Hx Diabetes, Hx Systemic Lupus Erythematosus Cardiovascular History: Reports: Hx Auto Implanted Cardiovert Defib, Hx Congestive Heart Failure, Hx Coronary Artery Disease, Hx Hypercholesterolemia, Hx Hypertension, Hx Pacemaker/ICD, Hx Valvular Heart Disease, Other Cardiovascular Problems/Disorders Respiratory History: Reports: Hx Asthma, Hx Chronic Obstructive Pulmonary Disease (COPD), Hx Pleural Effusion, Hx Sleep Apnea, Other Respiratory Problems/ Disorders - PATIENT STATES FLUID IN LUNGS GI History: Reports: Hx Gastroesophageal Reflux Disease History: Denies: Hx Dialysis, Hx Renal Disease Musculoskeletal History: Denies: Hx Rheumatoid Arthritis, Hx Scoliosis Sensory History: Reports: Hx Contacts or Glasses Denies: Hx Hearing Aid Opthamlomology History: Reports: Hx Contacts or Glasses Neurological History: Reports: Hx Seizures - partial simple, Hx Transient Ischemic Attacks (TIA) Denies: Hx Headaches - Cancer History Hx Chemotherapy: No - Surgical History Surgery Procedure, Year, and Place: CABG X 2 (09/2012) at [place], the second one was done at [facility] and 2 months ago 2013. PACEMAKER () [employer] [facility]#[phone]. mitral & aortic valve sx 09/21/2012 in [place]. left thorcetesis 12/2012 @ [facility] [place]. tubal ligation & hysterectomy. CARDIOVERSION, open heart several of these procedures then pacemaker was done. Sigmoid colon resection at [facility] [place] pt cannot remember the year; left foot SX 15 years ago at [facility]; Hx Anesthesia Reactions: No - Immunization History Date of Tetanus Vaccine: UTD Date of Influenza Vaccine: UTD Infectious Disease History: No Infectious Disease History: Reports: Hx Shingles Denies: Hx of Known/Suspected MRSA, Traveled Outside the [place] in Last 30 Days - Family History Known Family History: Positive: Cardiac Disease, Hypertension - Social History Alcohol Use: None Hx Substance Use: No Substance Use Type: Reports: None Hx Tobacco Use: No Smoking Status (MU): Never Smoked Tobacco Review of Systems Negative: Fever Neurological: Other - Confusion Negative: Weakness, Numbness All Other Systems Reviewed And Are Negative: Yes Physical Exam - Summary Physical Exam Summary: Appearance: Well appearing, no pain distress Skin: warm, dry, reflects adequate perfusion Head/face: normal Eyes: EOMI, EILEEN ENT: normal Neck: supple, non-tender Respiratory: CTA, breath sounds present Cardiovascular: Irregular heartbeat. Pulses symmetrical. Abdomen: non-tender, soft Bowel: present Musculoskeletal: normal, strength/ROM intact Neuro: normal, sensory motor intact, A&Ox3. NIH=0. Triage Information Reviewed: Yes Vital Signs On Initial Exam: Initial Vitals Temp Pulse Resp BP Pulse Ox 98.0 F 82 16 189/66 97 07/05/17 19:46 07/05/17 19:46 07/05/17 19:46 07/05/17 19:46 07/05/17 19:46 Vital Signs Reviewed: Yes Diagnostics - Vital Signs Vital Signs Temp Pulse Resp BP Pulse Ox 07/05/17 19:46 98.0 F 82 16 189/66 97 - Laboratory Lab Results: Lab Results 07/05/17 07/05/17 07/05/17 Range/Units 20:55 20:55 20:55 WBC 6.9 (3.5-10.8) 10^3/ul RBC 4.24 (4.0-5.4) 10^6/ul Hgb 13.0 (12.0-16.0) g/dl Hct 38 (35-47) % MCV 91 (80-97) fL MCH 31 (27-31) pg MCHC 34 (31-36) g/dl RDW 14 (10.5-15) % Plt Count 166 (150-450) 10^3/ul MPV 8 (7.4-10.4) um3 Neut % (Auto) 78.6 (38-83) % Lymph % (Auto) 12.7 L (25-47) % [place] % (Auto) 7.3 (1-9) % Eos % (Auto) 1.0 (0-6) % Baso % (Auto) 0.4 (0-2) % Absolute Neuts (auto) 5.4 (1.5-7.7) 10^3/ul Absolute Lymphs (auto) 0.9 L (1.0-4.8) 10^3/ul Absolute Monos (auto) 0.5 (0-0.8) 10^3/ul Absolute Eos (auto) 0.1 (0-0.6) 10^3/ul Absolute Basos (auto) 0 (0-0.2) 10^3/ul Absolute Nucleated RBC 0 10^3/ul Nucleated RBC % 0.1 INR (Anticoag Therapy) 0.95 (0.77-1.02) APTT 31.5 (26.0-36.3) seconds Sodium 140 (133-145) mmol/L Potassium 3.7 (3.5-5.0) mmol/L Chloride 106 (101-111) mmol/L Carbon Dioxide 28 (22-32) mmol/L Anion Gap 6 (2-11) mmol/L BUN 14 (6-24) mg/dL Creatinine 0.88 (0.51-0.95) mg/dL Est GFR ( Amer) 81.9 (>60) Est GFR (Non-Af Amer) 63.7 (>60) BUN/Creatinine Ratio 15.9 (8-20) Glucose 105 H (70-100) mg/dL Calcium 9.4 (8.6-10.3) mg/dL Total Bilirubin 0.50 (0.2-1.0) mg/dL AST 24 (13-39) U/L ALT 19 (7-52) U/L Alkaline Phosphatase 59 (34-104) U/L Troponin I 0.01 (<0.04) ng/mL Total Protein 6.4 (6.4-8.9) g/dL Albumin 4.1 (3.2-5.2) g/dL Globulin 2.3 (2-4) g/dL Albumin/Globulin Ratio 1.8 (1-3) Result Diagrams: 07/05/17 20:55 07/05/17 20:55 Lab Statement: Any lab studies that have been ordered have been reviewed, and results considered in the medical decision making process. - Radiology CXR Xray Interpretation: No Acute Changes - TRACE PLEURAL EFFUSIONS VERSUS PLEURAL THICKENING. Dr. Roberts has reviewed this report. Radiology Interpretation Completed By: Radiologist - CT CT Brain CT Interpretation: No Acute Changes - Negative CT. Dr. roberts has reviewed this report. CT Interpretation Completed By: Radiologist - EKG 20:51 Cardiac Rate: NL EKG Interpretation: Paced rhythm at 70 BPM. NIH Scale - NIH Scale Level of Consciousness: Alert/Keenly Responsive Ask Patient the Month and His/Her Age: Both Correct Ask Pt to Open/Close Eyes and Inventory Manager/Release Non-Paretic Hand: Both Correctly Best Gaze (Only Horizontal Eye Movement): Normal Visual Field Testing: No Visual Loss Facial Paresis-Pt to Smile & Close Eyes or Grimace Symmetry: Normal/Symmetrical Motor Function - Right Arm: No Drift-Holds 10 Seconds Motor Function - Left Arm: No Drift-Holds 10 Seconds Motor Function - Right Leg: No Drift-Holds 10 Seconds Motor Function - Left Leg: No Drift-Holds 10 Seconds Limb Ataxia-Must be out of Proportion to Weakness Present: Absent Sensory (Use Pinprick to Test Arms/Legs/Trunk/Face): Normal Best Language (Describe Picture, Name Items): No Aphasia Dysarthria (Read Several Words): Normal Extinction and Inattention: No Abnormality Total Score: 0 Course/Dx - Course Assessment/Plan: The patient is a 71 year old female presenting to the emergency department complaining of a 90-minute episode of confusion that is relieved by time of evaluation in the emergency department. Bloodwork and urinalysis were obtained. CT Brain is negative. EKG shows a paced rhythm. CXR obtained. Patient is diagnosed with TIA and admitted to Dr. Baca. - Differential Dx Differential Diagnoses Neuro: Positive: Anxiety, Cerebrovascular Accident, Intracranial Bleed, Metabolic Abnormality, Transient Ischemic Attack, Vasovagal Reaction - Diagnoses Provider Diagnoses: TIA (transient ischemic attack) - Physician Notifications Discussed Care Of Patient With: Gema Baca Time Discussed With Above Provider: 23:08 Instructed by Provider To: Admit As Inpatient - Critical Care Time Critical Care Time: 30-74 min Discharge - Discharge Plan Condition: Stable Disposition: ADMITTED TO [facility] Referrals: Sol Jones MD [Primary Care Provider] - The documentation as recorded by the Justin catalan Thomas accurately reflects the service I personally performed and the decisions made by Emi recinos Emmanuel.
[2017-07-05] MEDS ORDERED: Lidocaine 2.5%/Prilocain 2.5%* 5 GM TUBE TOPICAL ONE (23:34)
[2017-07-05] MEDS ORDERED: Aspirin TAB* 325 MG PO ONE (23:38)
[2017-07-05] MEDS ORDERED: Al Hydrox/Mg Hydrox/Simet LIQ* 30 ML UDC PO PRN (23:38)
[2017-07-05] MEDS ORDERED: Ondansetron INJ* 2 MG/ML VIAL IV PRN (23:38)
[2017-07-05] MEDS ORDERED: oxyCODONE/Acetamin 5/325 MG* TAB PO PRN (23:40)
[2017-07-05] MEDS ORDERED: Albuterol HFA INHALER* 8 gm MDI INH PRN (23:40)
[2017-07-05] MEDS ORDERED: Meclizine TAB* 12.5 MG PO PRN (23:40)
[2017-07-06] MEDS ORDERED: Iohexol 350* (CONTRAST) 500 ML MDV IV ONE (00:32)
[2017-07-06 01:04] LABS: Urine Appearance Clear; Urine Blood Negative (Negative); Urine Color Yellow; Urine Ketones Trace (Negative); Urine Protein Negative (Negative); Urine Specific Gravity 1.021 (1.010-1.030); Urine Urobilinogen Negative (Negative)
--- NOTE | 2017-07-06 01:29 | HP ---
CC: Sol Jones MD; Sophia Saeed MD * HISTORY AND PHYSICAL: DATE OF ADMISSION: 07/05/17 TIME OF EVALUATION: 2300 PRIMARY CARE PHYSICIAN: Sol Jones MD CHIEF COMPLAINT: Altered mental illness. HISTORY OF PRESENT ILLNESS: This is a 71-year-old female with past medical history of TIA, coronary artery disease who presents to the emergency room after having acute onset of confusion. The patient states she was in her usual state of health. She has been under a lot of stress lately, went to get her pacemaker interrogated and went to a dental procedure. Around 5 p.m., she was feeling disoriented, could not think clearly. She denied any headache. No vision changes. She called her granddaughter to have her daughter come over to help her as she was concerned things were getting worse. She had no issues with speech or word finding, but she could not remember anything. She could not really get ready, was confused and altered. Since arriving to the emergency room, she feels close to back to her baseline, still with some confusion. She states over the last few weeks, she gets right arm heaviness and some left arm weakness off and on, but she has a lot of issues with her disks in her back has contributed to that and she does have issues with balance and dizziness that has been ongoing since 3 years ago when she had complication of postop procedure after her valve replacement. No chest pain or shortness of breath. No weakness, numbness, or tingling. She did fall after she tripped over a cord yesterday. No falls today. She denies any new changes in her medications or new [id number] medications. She has a history of TIA in the past that has affected her and her most recent TIA was 3 years ago. Normally, her speech is affected when she has TIA in the past. Otherwise, remaining review of systems is negative. In the emergency room, the patient had labs, imaging, and was referred to the hospitalist for further evaluation. PAST MEDICAL HISTORY: 1. History of rheumatic heart disease. 2. Chronic left pleural effusion. 3. CAD. 4. History of atrial fibrillation and atrial flutter status post ablation and AV pacemaker. 5. Hypertension. 6. History of diverticulitis status post sigmoid colon resection. 7. History of TIA in the past that affected her speech. 8. GERD. 9. History of vertigo. 10. Obstructive sleep apnea and the patient uses CPAP. 11. History of seizure disorder. 12. History of CHF. PAST SURGICAL HISTORY: 1. History of tricuspid repair. 2. Mitral and aortic valve replacement with bioprosthetic valve. 3. Pacemaker as mentioned above. 4. History of cardiac catheterization. 5. Colon resection. 6. Oophorectomy. MEDICATIONS: 1. Multivitamin p.o. daily. 2. Percocet 1 tablet every 4 hours as needed for pain. 3. Spironolactone/hydrochlorothiazide 25/25 half a tab once every 4 days. She believes her last dose was today. 4. Albuterol inhaler 2 puffs every 4 hours as needed. 5. Meclizine 12.5 mg t.i.d. as needed. 6. Gabapentin 200 mg p.o. at bedtime. ALLERGIES: PENICILLIN, BACTRIM, AZITHROMYCIN, DOXYCYCLINE, METOPROLOL, SIMVASTATIN, and SULFA. FAMILY HISTORY: Her mother from valvular issues, age 85. Father from complications from alcohol use. SOCIAL HISTORY: The patient lives at home alone. She is independent of her ADLs. No history of smoking, alcohol, or illicit drug use. 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 Her healthcare proxy is her daughter, Nora Chin. CODE STATUS: Full code. REVIEW OF SYSTEMS: A 14-point review of systems as mentioned in the HPI, otherwise negative. PHYSICAL EXAMINATION GENERAL: No acute distress, resting comfortably. VITAL SIGNS: Temp 98, pulse rate 119, respiratory rate 18, oxygen saturation 97 % on room air, blood pressure 169/94. HEENT: Head is normocephalic. Pupils are equal and reactive and anicteric. Oropharynx: Mucous membranes moist. NECK: Supple. No adenopathy. RESPIRATORY: Diminished breath sounds. No wheezing, rhonchi, or rales. CARDIAC: Tachycardic with a harsh systolic murmur most prominent at the right sternal base. ABDOMEN: Soft, nontender, nondistended. EXTREMITIES: No clubbing, cyanosis, or edema. +1 DPs. NEUROLOGIC: Alert and oriented x3. No gross focal neurological deficits. Cranial nerves II through XII intact. Negative pronator drift. Upper and lower muscle strength equal and symmetric. LABORATORY DATA: White count 6.9, hemoglobin 13, hematocrit 38, platelets 166, 000. INR 0.95. Sodium 140, potassium 3.7, chloride 106, bicarb 28, BUN 14, creatinine 0.89, glucose 105. Troponin 0.01. RADIOGRAPHIC DATA: CT, no evidence of acute infarct. EKG shows AV dual paced rhythm. Chest x-ray shows trace pleural effusion with pleural thickening. ASSESSMENT: This is a 71-year-old female with past medical history of transient ischemic attack, who presents to the emergency room with altered mental status, confusion, and disorientation. 1. Disorientation. Assessment: The patient near to her baseline. Concern for intracranial event. Unfortunately, cannot do an MRI due to her pacemaker. Less likely a cardiac event. Most likely, a seizure. She has had seizure in the past, not on any antiepileptics. Plan: We will admit for observation. Give her a full aspirin dose now and baby aspirin. We will do a CTA of her head and neck and obtain an echocardiogram. Check a lipid panel in the morning. PT evaluation and bedside nursing swallow. If her symptoms persist or her workup becomes concerning, would recommend Neurology consultation. 2. Chronic medical problems. We will resume her home medications as prescribed including ordering her CPAP. 3. Tachycardia. The patient just had her pacemaker interrogated. She states she is having some underlying tachycardia. Consider followup of her pacemaker interrogation. 4. FEN: We will do a bedside swallow. If she passes, put her on a heart- healthy diet. 5. DVT prophylaxis. She scores high risk. Place her on heparin subcu t.i.d. 6. Her code status, full code. TIME SPENT: Greater than 50 minutes was spent doing the history and physical, more than half the time was spent in direct patient contact. [id number]/CPS #: [id number] KIARA
[2017-07-06] MEDS: Heparin VIAL(*) 5000 UNITS/ML VIAL (FIVE THOUSAND) SUBCUT SCH ×2 (05:09→13:45)
[2017-07-06] MEDS: Acetaminophen TAB* 325 MG PO PRN ×2 (07:41→13:44)
--- NOTE | 2017-07-06 07:48 | RAD ---
HISTORY: Altered mental status, TIA COMPARISONS: October 22, 2016 TECHNIQUE: Multiple contiguous axial CT scans were obtained of the head without intravenous contrast. FINDINGS: HEMORRHAGE/INFARCT: There is no hemorrhage or acute infarct. MASSES/SHIFT: There is no mass or shift. EXTRA-AXIAL SPACES: There are no extra-axial fluid collections. SULCI AND VENTRICLES: The sulci and ventricles are normal in size and position for the patient's stated age. CEREBRUM: There are no focal parenchymal abnormalities. BRAINSTEM: There are no focal parenchymal abnormalities. CEREBELLUM: There are no focal parenchymal abnormalities. VESSELS: The vessels are grossly normal. PARANASAL SINUSES: The paranasal sinuses are clear. ORBITS: The orbits are unremarkable. BONES AND SOFT TISSUE: No bone or soft tissue abnormalities are noted. OTHER: None IMPRESSION: NO ACUTE INTRACRANIAL PATHOLOGY.
--- NOTE | 2017-07-06 07:58 | RAD ---
HISTORY: Altered mental status COMPARISONS: Head CT dated July 05, 2012, CTA dated February 07, 2016 TECHNIQUE: Multiple contiguous axial CT scans were obtained of the head and neck after the administration of nonionic intravenous contrast timed to the systemic arterial phase of contrast enhancement. Coronal and sagittal multiplanar reformations are submitted for review. Multiple 3-D maximum intensity projection reconstructions are also submitted for review. FINDINGS: CTA NECK: AORTIC ARCH: There is a normal three-vessel branching pattern of the aortic arch. There is no ostial or proximal stenosis of the cephalic great vessels. RIGHT VERTEBRAL ARTERY: The right vertebral artery. This is stable from the previous examination. LEFT VERTEBRAL ARTERY: The left vertebral artery is patent along its course, without stenosis. DOMINANCE: The left vertebral artery is dominant. RIGHT COMMON CAROTID ARTERY: The right common carotid artery is patent. The right carotid bifurcation occurs at C4. RIGHT INTERNAL CAROTID ARTERY: There is no right internal carotid artery stenosis by NASCET criteria. RIGHT EXTERNAL CAROTID ARTERY: The right external carotid artery is unremarkable. LEFT COMMON CAROTID ARTERY: The left common carotid artery is patent. The left carotid bifurcation occurs at C4-C5 LEFT INTERNAL CAROTID ARTERY: There is no left internal carotid artery stenosis by NASCET criteria. LEFT EXTERNAL CAROTID ARTERY: The left external carotid artery is unremarkable. VENOUS CIRCULATION: The venous system is unremarkable. SALIVARY GLANDS: The parotid glands, submandibular glands, sublingual glands are normal. NASAL CAVITY/NASOPHARYNX: The nasal cavity and nasopharynx are normal. ORAL CAVITY/OROPHARYNX: The oral cavity and oropharynx are unremarkable. LARYNGEAL APPARATUS/HYPOPHARYNX: The laryngeal apparatus and hypopharynx are normal. UPPER AIRWAY/UPPER ESOPHAGUS: The visualized upper airway and esophagus are normal. LUNG APICES: The lung apices are clear. THYROID GLAND: The thyroid gland is normal. LYMPH NODES: There is no lymphadenopathy by size criteria. BONES AND SOFT TISSUES: No bone or soft tissue abnormalities are noted. CTA HEAD: INTRACRANIAL CIRCULATION: There is no aneurysm, vascular malformation, occlusion, or stenosis of the visualized intracranial circulation. The anterior communicating artery complex is clear. Bilateral posterior communicating arteries are identified. VENOUS CIRCULATION: The venous system is unremarkable. PERFUSION: There is no obvious parenchymal perfusion deficit. HEMORRHAGE/INFARCT: There is no hemorrhage or acute infarct. MASSES/SHIFT: There is no mass or shift. EXTRA-AXIAL SPACES: There are no extra-axial fluid collections. SULCI AND VENTRICLES: The sulci and ventricles are normal in size and position for the patient's stated age. CEREBRUM: There are no focal parenchymal abnormalities. BRAINSTEM: There are no focal parenchymal abnormalities. CEREBELLUM: There are no focal parenchymal abnormalities. PARANASAL SINUSES: The paranasal sinuses are clear. ORBITS: The orbits are unremarkable. BONES AND SOFT TISSUE: Mild degenerative changes are noted. OTHER: There is no abnormal enhancement. IMPRESSION: 1. STABLE DIMINUTIVE RIGHT VERTEBRAL ARTERY. 2. NO INTERNAL CAROTID ARTERY STENOSIS BY NASCET CRITERIA. 3. NO ANEURYSM, VASCULAR MALFORMATION, OCCLUSION, OR STENOSIS OF THE VISUALIZED INTRACRANIAL CIRCULATION. CPT II Codes: 3100F
[2017-07-06] MEDS ORDERED: Aspirin EC Low Dose* 81 MG TAB.EC PO SCH (09:00)
[2017-07-06] MEDS ORDERED: Multivitamins/Minerals TAB PO SCH (09:00)
[2017-07-06 11:32] VITALS: BP 123/56
--- NOTE | 2017-07-06 19:57 | CONS ---
CC: Dr. Whitaker; Dr. Sol Jones; Dr. Poe; Dr. Saeed * NEUROLOGY CONSULTATION REPORT: DATE OF CONSULT: 07/06/17 REQUESTING PHYSICIAN: Dr. Whitaker. PRIMARY CARE PHYSICIAN: Dr. Sol Jones. REASON FOR CONSULT: Episode of confusion. HISTORY OF PRESENT ILLNESS: This is a 71-year-old woman with an extensive past medical history including rheumatic heart disease, reported history of seizures , history of TIAs in the past, as well as atrial fibrillation and flutter, status post ablation and pacemaker placement, not on anticoagulation, who presented to the emergency department yesterday evening after having an episode of confusion, which she states lasted about 3 hours. 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 Otherwise, she was in her usual state of health when this episode occurred. She had also gotten her pacemaker interrogated yesterday, which typically makes her feel transiently weak, as she indicates she is pacemaker dependent. Just after dinner, she began to feel as though she could not put things together normally. She indicates that she would go to do something and then would forget what she was going to do. She called her granddaughter for help and as she was trying to get ready to leave, she kept forgetting the next step in the process of getting ready. She denies any issues with her speech, either production or understanding. She did not have any numbness or tingling or weakness in her arms or legs. She has some chronic sense of imbalance and dizziness, which was no different during this episode yesterday. She did not have any loss of awareness or true loss of memory during this event. She does state today that when she was initially being questioned about this in the emergency department, she had some difficulty recalling details of things that she had said or done, but once her daughter would fill in the blank, she would remember that that had occurred. There is no report of repetitive questioning. She feels back to normal today aside from feeling tired. She did not sleep well here in the hospital last night. She did have a mechanical fall after tripping over a cord yesterday and reports an increase in left-sided rib pain related to that. This morning, she had an EEG, which showed some periods of polymorphic, primarily theta range slowing independently in the left and right temporal regions, which is similar to the findings of EEG she has had in the past. She has not really had an episode like this current episode in the past though she says maybe she has had some fleeting episodes of confusion, which she did not pay much attention to. She does note other episodes involving her arms, which are also fleeting. Her left arm will sometimes feel incoordinated for several seconds. The right arm sometimes gets a "mandujano" sensation, which she has difficulty describing otherwise. These episodes are occurring a few times per month and she questions whether they could be related to multiple sclerosis. She reports a past history of being diagnosed with seizures, which she says manifest as flashing lights in her vision and some areas of blackened vision. Finally, she reports a history of TIAs, which at times have presented with speech difficulties whereas on another occasion, she was seen here in the hospital in 2013 with left-sided sensory changes. At that time, she was on anticoagulation related to mechanical valves as well as the history of atrial fibrillation. She estimates that she has been off anticoagulation since 2013 when her valves were changed out for a bioprosthetic. She has not had any episodes of atrial fibrillation recently that she is aware of and indicates that she is pacemaker dependent. Because of the presence of the pacemaker, she is not able to undergo MRI scan of the brain. I note that the patient was hypertensive upon her initial evaluation in the emergency department as high as 189/66 and she indicates this is quite unusual for her. PAST MEDICAL HISTORY: 1. Rheumatic heart disease, status post valve replacements, in particular the mitral and aortic valves x2. 2. History of chronic left pleural effusion. 3. Coronary artery disease. 4. Atrial fibrillation and atrial flutter, status post ablation and AV pacemaker. 5. Hypertension. 6. Diverticulitis, status post sigmoid colon resection. 7. TIA. 8. GERD. 9. Vertigo/dizziness. 10. Obstructive sleep apnea, on CPAP. 11. History of seizure disorder, not on antiseizure medication secondary to medication sensitivities. 12. History of CHF. PAST SURGICAL HISTORY: 1. Tricuspid repair. 2. Mitral and aortic valve replacements with bioprosthetic valve. 3. Pacemaker implantation. 4. Cardiac catheterization. 5. Colon resection. 6. Oophorectomy. HOME MEDICATIONS: 1. Multivitamin. 2. Percocet 1 tablet every 4 hours as needed for pain. 3. Spironolactone/hydrochlorothiazide 25/25 half tablet once every 4 days. 4. Albuterol as needed. 5. Meclizine 12.5 mg 3 times daily as needed. 6. Gabapentin 200 mg has been prescribed by Dr. Poe, but the patient reports she took this only for 4 days and had side effects and discontinued it. ALLERGIES: PENICILLIN, BACTRIM, AZITHROMYCIN, DOXYCYCLINE, METOPROLOL, SIMVASTATIN, and SULFA. FAMILY HISTORY: Her mother from valvular issues at age 85 and father from alcohol abuse. SOCIAL HISTORY: She lives alone but has 2 children that live very close to her. She is church and very involved in her [employer]. She is retired. No history of smoking, alcohol, or drug use. REVIEW OF SYSTEMS: Aside from the HPI, negative. PHYSICAL EXAM: Vital Signs: Temperature 98.6, blood pressure 129/54, heart rate 70, oxygen saturation 99% on room air. On general examination, she is a pleasant woman in no acute distress. Her heart is in a regular rate and rhythm with a harsh systolic murmur heard at the right upper sternum, which radiates to the carotids. There do not appear to be any independent carotid bruits. Lungs are clear to auscultation. Extremities showed no edema. Her skin is intact. Her affect is normal. On neurologic examination, she is fully awake, alert, and oriented. Speech is fluent without dysarthria or aphasia. Pupils were equal, round and reactive from 4 to 2 mm bilaterally. Versions are full without any nystagmus. Reyes are full to confrontation. Facial sensation is intact and symmetric. Her face has full strength and just slightly asymmetric with downturning of the left corner of her mouth, which she says is her baseline. Hearing is intact to finger rub bilaterally. Palate elevates symmetrically and the tongue is midline. On motor examination, she has normal bulk and tone in the upper and lower extremities. Strength is full both proximally and distally with no pronator drift. Sensation is intact to light touch. Reflexes are 2+ throughout with downgoing toes. [id number] and [id number] are intact without any ataxia. Her gait was narrow based and at times slightly wandering and she would step out to the left or the right, but she was independent. DIAGNOSTIC STUDIES/LAB DATA: CMP is overall unremarkable. Her cholesterol profile was done this morning and shows triglycerides of 81, cholesterol of 195 , LDL of 125, HDL of 54. CBC also overall unremarkable with normal hematocrit, white count, and platelet count. Her urinalysis showed trace ketones; otherwise , negative. Coagulation studies were normal. Her noncontrast brain CT was obtained and personally reviewed and showed no evidence for acute intracranial abnormality and no evidence for any significant small vessel disease or other parenchymal abnormalities. Her CT angiogram was personally reviewed and shows a diminutive right vertebral artery, which is stable compared to previous and otherwise there is no evidence of significant stenosis or occlusion. She does have some mild plaque in the aorta. EEG is as described above. IMPRESSION AND PLAN: Magy Ramirez is a 71-year-old woman with an extensive past medical history including cardiac disease, status post bioprosthetic mitral and aortic valves, atrioventricular pacemaker, possible history of seizures in the past as well as transient ischemic attacks, and past history of atrial fibrillation, not on anticoagulation or aspirin, who presents with an episode of confusion. Essentially, during this time, she had difficulty remembering the sequencing of tasks that she was intending to do and would lose her train of thought. I discussed with her that this is not a common presentation of transient ischemic attack though it is possible. I will discuss with Dr. Whitaker having her pacemaker interrogated today. I note that this was done yesterday, but that was prior to this episode and I would like to make sure that there was no atrial fibrillation during the time that she had this period of confusion. I think she should start an aspirin daily given the possibility of a TIA, though as mentioned, this would be an unusual presentation. However, she has other risk factors for this. The differential would otherwise include seizure as a possibility as well as hypertensive encephalopathy given her elevated blood pressures, which seemed to be out of the norm for her. I had also considered in the differential a stress-type reaction given the amount of stress she was under last week. Her EEG continues to be nonspecifically abnormal with some slowing in the temporal regions but no clear epileptiform abnormalities. She has had difficulty tolerating antiepileptic medications in the past and I note that this episode is different than what she has experienced in the past which would potentially make seizure less likely. Mental status changes secondary to relative hypertension is a possibility, but aside from initial blood pressure is 189/66 and 185/73, she was not that hypertensive for the remainder of her stay. However, this may has been resolving and we were catching the tail end of hypertensive episode. I will try to discuss with Dr. Poe as well, who knows the patient well, but at this point, aside from interrogating the pacemaker, and suggesting that the patient take an aspirin daily, I do not think that there is any further neurologic workup that should be done. Thank you for this consultation. [id number]/[facility] #: [id number] KIARA
[2017-07-06] MEDS ORDERED: Gabapentin CAP(*) 100 MG PO SCH (21:00)
--- NOTE | 2017-07-07 00:34 | EEG ---
CC: Dr. Poe; Dr. Jones * ELECTROENCEPHALOGRAPHY: DATE OF STUDY: 07/06/17 - ROOM #439 LOCATION: The patient is an inpatient. ORDERING PHYSICIAN: Dr. Whitaker. CLINICAL PROBLEM: This is a 71-year-old woman with a past history of cardiovascular problems who came into the emergency department on 07/05/17 for an episode of confusion. She states that around 5 p.m., she began feeling disoriented and could not think clearly. She states that she could not remember anything and she would go to get things together to leave and then could not remember what to do. By the time she arrived in the emergency department, she was essentially back to her baseline with just a little lingering confusion. She reports a history of seizures and TIAs in the past. EEG is requested to evaluate for epileptiform abnormalities. MEDICATIONS: 1. Percocet. 2. Zofran. 3. Antivert. 4. Ventolin. 5. Maalox. 6. Tylenol. 7. Multivitamin. 8. Aspirin 81 mg. 9. Neurontin, which the patient states she has not been taking. 10. Heparin. REPORT: The waking background showed appropriate organization with clearly defined anterior to posterior voltage and frequency gradients. There was a well -defined posterior dominant rhythm of 9 Hz, which was symmetrical and showed normal reactivity. Anteriorly, there is an expected pattern of lower voltage, irregular, mixed faster frequencies. Intermittently during the recording, there were brief, 1 second or less, epochs of polymorphic slowing which were noted independently in the right and left temporal regions. This was primarily in the theta range. There were some sharp contours associated with this slowing which were not epileptiform in nature. Attenuation of the occipital rhythm accompanied drowsiness, but there were no well- developed sleep spindles to indicate the transition to stage 2 sleep. Throughout the recording, there were no definitive epileptiform abnormalities. CLINICAL IMPRESSION: This is an abnormal waking and drowsy EEG due to the presence of intermittent, independent slowing in the left and right temporal regions with some occasional associated sharp features which were not epileptiform in nature. These findings are suggestive of intermittent underlying neuronal dysfunction in these regions of a nonspecific nature. [id number]/[facility] #: [id number] [facility]
--- NOTE | 2017-07-07 04:29 | DS ---
CC: Dr. Jones; Dr. Osorio; Dr. Poe * DISCHARGE SUMMARY: DATE OF ADMISSION: 07/05/17 DATE OF DISCHARGE: 07/06/17 PRIMARY CARE PROVIDER: Dr. Jones. DISCHARGE DIAGNOSIS: Transient alteration of metal state at this point and definite etiology was not found and the differential includes atypical migraine versus transient ischemic attack versus seizure. SECONDARY DIAGNOSIS: 1. History of episodes of dizziness and unsteadiness in the past with so far negative workup. 2. History of rheumatic heart disease. 3. History of chronic left-sided pleural effusion. 4. History of atrial fibrillation as well as AV ablation and AV pacemaker. 5. Coronary artery disease. 6. Hypertension. 7. Status post sigmoid colon resection for diverticulitis. 8. History of transient ischemic attack in the past that affected her speech. 9. Gastroesophageal reflux disease. 10. History of vertigo. 11. History of obstructive sleep apnea, on CPAP. 12. Questionable history of seizure disorder, that was not mentioned in patient 's medical records, but patient mentioned it herself. 13. History of congestive heart failure. 14. Status post aortic valve replacement with bioprosthetic valve. 15. History of oophorectomy. 16. History of tricuspid repair. MEDICATIONS AT DISCHARGE: Include: 1. Aspirin 81 mg daily, which is new. The remaining medications are unchanged and include, 1. Albuterol inhaler 2 puffs every 4 hours p.r.n. 2. Antivert 12.5 mg 3 times a day p.r.n. 3. Multivitamin 1 tablet daily. 4. Oxycodone/acetaminophen 5/325 mg 1 tablet every 4 hours p.r.n. 5. Spironolactone/hydrochlorothiazide 25/25 mg 0.5 mg every 4 days. LABORATORY AND DIAGNOSTIC DATA: CT angiogram of the chest obtained on 07/05/17 showed stable diminutive right vertebral artery. No internal carotid artery stenosis. No aneurysm, vascular malformation, occlusion, or stenosis of the visualized intracranial circulation. EEG performed during the hospital stay, official read is pending at the time of dictation. CONSULTATIONS DURING THE HOSPITAL STAY: Include Dr. Osorio from Neurology. HOSPITALIZATION COURSE: Magy Ramirez is a 71-year-old female with multiple past medical events as mentioned above, who is Dr. Poe's patient, who has had problems with unsteady gait and episodes of falls and dizziness who presented to the hospital after she had an episode of confusion for approximately 2 hours that occurred on 07/05/17. The patient stated that she was aware that her memory was basically nonexistent at that point but she was aware of the episode and was aware of the confusion. She had no focal symptoms. She denied any problems with dizziness at that point, vision. No slurred speech and no focal weakness. The episode resolved by the time she was evaluated for admission. She was observed on telemetry monitored bed with rhythm strips being paced rhythm. She had an EEG performed, which was mildly abnormal as per Dr. Osorio, but no evidence of seizure activity per se. Dr. Osorio saw the patient in consultation. At this point, it is very difficult to distinguish and lean towards one diagnosis more than the other. The patient could have had TIA, but she also could have had an atypical migraine or seizure episode. At this point, Dr. Osorio recommended to place patient on baby aspirin daily and to follow up with Dr. Poe. The patient is also recommended to follow up with her primary care provider in approximately 4 to 7 days. PHYSICAL EXAM AT THE TIME OF DISCHARGE: Blood pressure 123/56, heart rate of 70 and regular, respiratory rate 16, oxygen saturation 98% on room air, temperature 98.2. General: The patient is a very pleasant 71-year-old female, who is in on acute distress. Alert, awake and oriented x3. HEENT: Head atraumatic, normocephalic. Eyes: Pupils equal, round, and reactive to light and accommodation. Oropharynx clear. Mucosa moist. Neck: Supple. No JVD. No bruits bilaterally. Cardiovascular: Regular rate and rhythm. No murmur. Respiratory: Clear to auscultation bilaterally. Abdomen: Soft and nontender. Bowel sounds present in all 4 quadrants. Extremities: There is no edema. Pulses +2 bilaterally. No clubbing, cyanosis. On neuro evaluation, the patient has mildly wider, but steady gait. Speech is clear. Cranial nerves II through XII grossly intact. Motor strength is 5/5 bilaterally. Please note that also in the differential should include possibility of hypertensive encephalopathy as the patient's blood pressures on admissions were in the 180s range. Please also note that the patient's pacemaker was interrogated and shows no atrial arrhythmias. The patient has had paced rhythm in her pacemaker interrogation, no ventricular and no atrial arrhythmias. Please note that this is short summary of patient's hospitalization, please refer to further medical records for details. TIME SPENT: Approximately 40 minutes were spent on patient's discharge. [id number]/[facility] #: [id number] MTDD
== END 2017-07-06 17:00 | disposition home or self-care (01) ==
LOC: ED 19:43 → MEDTELE 23:38
PROVIDERS: ADMIT Pediatrics; ATTEND Internal Medicine
DX: G45.9 Transient cerebral ischemic attack, unspecified (principal); R41.0 Disorientation, unspecified; Z79.01 Long term (current) use of anticoagulants; Z86.79 Personal history of other diseases of the circulatory system; Z88.0 Allergy status to penicillin
CPT/HCPCS: 36415; 70450; 70496; 70498; 71045; 80053; 80061; 81003; 84484; 85025; 85610; 85730; 93005; 95816; 96374; 99284; A9270-GY; G0378; G8978-GP-CH; G8979-GP-CH; G8980-GP-CH; J1644; Q9967

== ENCOUNTER 2017-09-26 08:25 | Emergency (ER) | payer MEDICARE, MEDICAID ==
[2017-09-26] MEDS ORDERED: Ondansetron INJ* 2 MG/ML VIAL IV ONE (08:37)
[2017-09-26] MEDS ORDERED: Ketorolac INJ* 30 MG/ML 1 ML VIAL IV PUSH ONE (08:37)
[2017-09-26] MEDS ORDERED: Ondansetron ODT TAB* 4 MG SL ONE (08:54)
[2017-09-26] MEDS ORDERED: Ketorolac INJ* 60 MG/2 ML VIAL IM ONE (08:54)
[2017-09-26] MEDS ORDERED: Ondansetron ODT TAB* 4 MG ONE (08:56)
[2017-09-26] MEDS ORDERED: Morphine INJ* 4 MG/ML 1 ML CARPUJECT IV ONE (09:59)
[2017-09-26] MEDS ORDERED: Morphine VIAL* 4 MG/ML VIAL (1 ml vial) IV ONE ×2 (10:18→10:35)
[2017-09-26 10:21] LABS: ABS Basophils 0.1 10^3/ul (0-0.2); ABS Eosinophils 0 10^3/ul (0-0.6); ABS Lymphocytes 0.5 10^3/ul (1.0-4.8); ABS Monocytes 0.3 10^3/ul (0-0.8); ABS Neutrophils 7.7 10^3/ul (1.5-7.7); ABS Nucleated RBC 0 10^3/ul; Eosinophil % 0.2 % (0-6); Hematocrit 39 % (35-47); Hemoglobin 13.5 g/dl (12.0-16.0); Lymphocyte % 6.2 % (25-47); Mean Corpuscular HGB Conc 34 g/dl (31-36); Mean Corpuscular Hemoglobin 31 pg (27-31); Mean Corpuscular Volume 91 fL (80-97); Mean Platelet Volume 9.2 um3 (7.4-10.4); Nucleated Red Blood Cells % 0; Platelet Count 234 10^3/ul (150-450); Red Blood Count 4.29 10^6/ul (4.0-5.4); Red Cell Distribution Width 13 % (10.5-15); White Blood Count 8.6 10^3/ul (3.5-10.8)
[2017-09-26 10:45] LABS: EGFR Non-African American 61.9 (>60)
--- NOTE | 2017-09-26 11:30 | RAD ---
Indication: Right flank pain. CT of the abdomen and pelvis was performed without oral or IV contrast administration. Coronal and sagittal reconstructed images were obtained. The lung bases demonstrate no pleural fluid, nodules or masses. Heart demonstrates no pericardial effusion. Scarring is noted in the lung bases. The liver is normal in size. No focal lesions or intrahepatic ductal dilatation is noted. The gallbladder demonstrates small calcified gallstones in the dependent portion. No pericholecystic fluid or wall thickening is noted. The pancreas demonstrates no mass or pancreatic ductal dictation. The spleen is normal in size. No adrenal lesions are noted. The common duct is not dilated. There is right hydronephrosis noted. There is right hydroureter noted. 2 mm calcification is noted in the distal right ureter at the right ureterovesicular junction. The prostate and seminal vesicles are unremarkable. No hernias are noted. There is likely a retrocecal appendix which appears to be within normal limits. Healed fracture of the left inferior pubic ramus is noted. Healed fracture of the left superior pubic ramus is noted. There is some lucency noted. IMPRESSION: Right hydronephrosis with likely 2 mm calculus in the distal right ureter at the right ureterovesicular junction. Left kidney shows no hydronephrosis. Cholelithiasis without evidence of biliary duct dilatation.
--- NOTE | 2017-09-26 13:01 | ED ---
Abdominal Pain/Female - HPI Summary HPI Summary: Patient is a 72-year-old female presenting to the ED with chief complaint of right flank pain since 9:00 this morning. She denies urinary symptoms. She has never had a kidney stone. Denies any obstructive symptoms. Denies fevers, sweats, chills. She states the pain is a 10 out of 10, constant and throbbing. She is unable to sit still. She is in severe distress on arrival. She is very tearful on examination. Denies any abdominal surgeries, vomiting, diarrhea , constipation. Endorses mild nausea. - History of Current Complaint Chief Complaint: EDFlankPain Stated Complaint: FLANK/BACK PAIN Time Seen by Provider: 09/26/17 08:35 Hx Obtained From: Patient ?: No Onset/Duration: Sudden Onset Timing: Constant Severity Initially: Severe Severity Currently: Severe Pain Intensity: 9 Pain Scale Used: 0-10 Numeric Location: Flank Radiates: No Character: Sharp Aggravating Factor(s): Nothing Alleviating Factor(s): Nothing Associated Signs and Symptoms: Positive: Nausea. Negative: Constipation, Blood in Stool, Urinary Symptoms, Decreased Appetite, Vomiting, Diarrhea - Risk Factors Ectopic Risk Factor: Maternal Age ^ 30 Ovarian Torsion Risk Factor: Negative Allergies/Adverse Reactions: Allergies Allergy/AdvReac Type Severity Reaction Status Date / Time doxycycline Allergy Unknown Verified 09/26/17 08:33 Reaction Details metoprolol Allergy Unknown Verified 09/26/17 08:33 Reaction Details Penicillins Allergy Rash Verified 09/26/17 08:33 simvastatin Allergy Unknown Verified 09/26/17 08:33 Reaction Details Sulfa (Sulfonamide Allergy Unknown Verified 09/26/17 08:33 Antibiotics) Reaction Details sulfamethoxazole Allergy Unknown Verified 09/26/17 08:33 [From Bactrim] Reaction Details trimethoprim [From Bactrim] Allergy Unknown Verified 09/26/17 08:33 Reaction Details Home Medications: Home Medications Aspirin EC TAB* [Ecotrin EC Low Dose 81 MG*] 81 mg PO DAILY 09/26/17 [History Confirmed 09/26/17] Cholecalciferol TAB* [Vitamin D TAB*] 1,000 unit PO DAILY 09/26/17 [History Confirmed 09/26/17] Vitamin B Complex CAP* [B Complex CAP*] 1 cap PO DAILY 09/26/17 [History Confirmed 04/22/18] PMH/Surg Hx/FS Hx/Imm Hx Previously Healthy: Yes Endocrine/Hematology History: Reports: Hx Anticoagulant Therapy, Hx Anemia Denies: Hx Diabetes, Hx Systemic Lupus Erythematosus Cardiovascular History: Reports: Hx Auto Implanted Cardiovert Defib, Hx Congestive Heart Failure, Hx Coronary Artery Disease, Hx Hypercholesterolemia, Hx Hypertension, Hx Pacemaker/ICD, Hx Valvular Heart Disease, Other Cardiovascular Problems/Disorders Respiratory History: Reports: Hx Asthma, Hx Chronic Obstructive Pulmonary Disease (COPD), Hx Pleural Effusion, Hx Sleep Apnea, Other Respiratory Problems/ Disorders - PATIENT STATES FLUID IN LUNGS GI History: Reports: Hx Diverticulosis, Hx Gastroesophageal Reflux Disease History: Denies: Hx Dialysis, Hx Renal Disease Musculoskeletal History: Denies: Hx Rheumatoid Arthritis, Hx Scoliosis Sensory History: Reports: Hx Contacts or Glasses Denies: Hx Hearing Aid Opthamlomology History: Reports: Hx Contacts or Glasses Neurological History: Reports: Hx Seizures - partial simple, Hx Transient Ischemic Attacks (TIA) Denies: Hx Headaches - Cancer History Hx Chemotherapy: No - Surgical History Surgery Procedure, Year, and Place: CABG X 2 (09/2012) at [place], the second one was done at [facility] and 2 months ago 2013. PACEMAKER () [employer] PH#[phone]. mitral & aortic valve sx 09/21/2012 in [place]. left thorcetesis 12/2012 @ [facility] [place]. tubal ligation & hysterectomy. CARDIOVERSION, open heart several of these procedures then pacemaker was done. Sigmoid colon resection at [facility] [place] pt cannot remember the year; left foot SX 15 years ago at [facility]; Hx Anesthesia Reactions: No - Immunization History Date of Tetanus Vaccine: UTD Date of Influenza Vaccine: UTD Hx Pertussis Vaccination: No Immunizations Up to Date: Unable to Obtain/Confirm Infectious Disease History: No Infectious Disease History: Reports: Hx Shingles Denies: Hx Clostridium Difficile, Hx Hepatitis, Hx of Known/Suspected MRSA, Hx Tuberculosis, Traveled Outside the [place] in Last 30 Days - Family History Known Family History: Positive: Cardiac Disease, Hypertension - Social History Occupation: Unemployed Lives: With Family Alcohol Use: None Hx Substance Use: No Substance Use Type: Reports: None Hx Tobacco Use: No Smoking Status (MU): Never Smoked Tobacco Review of Systems Constitutional: Negative Negative: Fever, Chills, Fatigue, Skin Diaphoresis Negative: Photophobia, Blurred Vision Negative: Palpitations, Chest Pain Negative: Shortness Of Breath, Cough Positive: Nausea. Negative: Abdominal Pain, Vomiting, Diarrhea Positive: flank pain - right Musculoskeletal: Negative Skin: Negative Neurological: Negative All Other Systems Reviewed And Are Negative: Yes Physical Exam Triage Information Reviewed: Yes Vital Signs On Initial Exam: Initial Vitals Temp Pulse Resp BP Pulse Ox 98 F 70 20 149/74 100 09/26/17 08:30 09/26/17 08:30 09/26/17 08:30 09/26/17 08:30 09/26/17 08:30 Vital Signs Reviewed: Yes Appearance: Positive: Ill-Appearing, Pain Distress Skin: Positive: Skin Color Reflects Adequate Perfusion Head/Face: Positive: Normal Head/Face Inspection Eyes: Positive: EOMI, EILEEN, Conjunctiva Clear Neck: Positive: Supple, No Lymphadenopathy Respiratory/Lung Sounds: Positive: Clear to Auscultation, Breath Sounds Present Cardiovascular: Positive: Normal, RRR, Pulses are Symmetrical in both Upper and Lower Extremities Abdomen Description: Positive: CVA Tenderness (R). Negative: CVA Tenderness (L) , Distended, Guarding, McBurney's Point Tenderness, Splenomegaly Pelvic Exam: Negative: No Masses Musculoskeletal: Positive: Normal, Strength/ROM Intact Neurological: Positive: Sensory/Motor Intact, Alert, Oriented to Person Place, Time, Speech Normal Psychiatric: Positive: Normal, Affect/Mood Appropriate AVPU Assessment: Alert Diagnostics - Vital Signs Vital Signs Temp Pulse Resp BP Pulse Ox 09/26/17 10:35 20 09/26/17 10:00 15 09/26/17 09:41 77 20 167/82 100 09/26/17 09:12 23 209/87 09/26/17 09:00 23 09/26/17 08:42 75 17 201/79 99 09/26/17 08:30 98 F 70 20 149/74 100 - Laboratory Lab Results: Lab Results 09/26/17 09/26/17 09/26/17 Range/Units 10:05 10:05 10:05 WBC 8.6 (3.5-10.8) 10^3/ul RBC 4.29 (4.0-5.4) 10^6/ul Hgb 13.5 (12.0-16.0) g/dl Hct 39 (35-47) % MCV 91 (80-97) fL MCH 31 (27-31) pg MCHC 34 (31-36) g/dl RDW 13 (10.5-15) % Plt Count 234 (150-450) 10^3/ul MPV 9.2 (7.4-10.4) um3 Neut % (Auto) 89.4 H (38-83) % Lymph % (Auto) 6.2 L (25-47) % Laurel % (Auto) 3.6 (0-7) % Eos % (Auto) 0.2 (0-6) % Baso % (Auto) 0.6 (0-2) % Absolute Neuts (auto) 7.7 (1.5-7.7) 10^3/ul Absolute Lymphs (auto) 0.5 L (1.0-4.8) 10^3/ul Absolute Monos (auto) 0.3 (0-0.8) 10^3/ul Absolute Eos (auto) 0 (0-0.6) 10^3/ul Absolute Basos (auto) 0.1 (0-0.2) 10^3/ul Absolute Nucleated RBC 0 10^3/ul Nucleated RBC % 0 Sodium 137 L (139-145) mmol/L Potassium TNP Chloride 104 (101-111) mmol/L Carbon Dioxide 26 (22-32) mmol/L Anion Gap 7 (2-11) mmol/L BUN 20 (6-24) mg/dL Creatinine 0.90 (0.51-0.95) mg/dL Est GFR ( Amer) 79.6 (>60) Est GFR (Non-Af Amer) 61.9 (>60) BUN/Creatinine Ratio 22.2 H (8-20) Glucose 110 H (70-100) mg/dL Lactic Acid 0.8 (0.5-2.0) mmol/L Calcium 9.3 (8.6-10.3) mg/dL Total Bilirubin 0.50 (0.2-1.0) mg/dL AST TNP ALT 20 (7-52) U/L Alkaline Phosphatase 45 (34-104) U/L Troponin I 0.00 (<0.04) ng/mL C-Reactive Protein 2.47 (< 5.00) mg/L Total Protein 7.1 (6.4-8.9) g/dL Albumin 4.5 (3.2-5.2) g/dL Globulin 2.6 (2-4) g/dL Albumin/Globulin Ratio 1.7 (1-3) Result Diagrams: 09/26/17 10:05 09/26/17 10:05 Lab Statement: Any lab studies that have been ordered have been reviewed, and results considered in the medical decision making process. Abdominal Pain Fem Course/Dx - Course Course Of Treatment: The patient is evaluated for flank pain. Kidney stone versus muscle spasm. CT abdomen and pelvis obtained which shows: IMPRESSION: Right hydronephrosis with likely 2 mm calculus in the distal right ureter at. the right ureterovesicular junction. Left kidney shows no hydronephrosis. Cholelithiasis without evidence of biliary duct dilatation. UA obtained. Labs obtained and are unremarkable. During the course of treatment, she is given Toradol and morphine without relief. Immediately following giving a urine sample however, she states the pain went from a 10 out of 10 to a 0 out of 10. She is comfortable now and is requesting to be discharged home. She believes she may have passed the stone. Denies any hematuria. She is in no acute distress. I have given her Flomax, tramadol and a strainer if pain returns. She is also given a follow-up to Dr. Reynolds. Dr. Reynolds called at 1:30 PM to make aware of this patient with hydronephrosis. He is able to see her in his office. UA shows 2+ leuks, 3+ RBCs and negative for leukocyte esterase. She is placed on Cipro and we will await sensitivities at this time. During the course, she states she is feeling markedly improved and denies any pain at this time. She feels she may have passed a stone. She is given a strainer, tramadol - Diagnoses Differential Diagnosis: Positive: Renal Colic, Urinary Tract Infection Provider Diagnoses: Right kidney stone Discharge - Sign-Out/Discharge Documenting (check all that apply): Discharge - Discharge Plan Condition: Stable Disposition: HOME Prescriptions: Ciprofloxacin TAB* [Cipro 500 MG TAB*] 500 mg PO BID #14 tab Tamsulosin CAP* [Flomax CAP*] 0.4 mg PO BEDTIME #5 cap traMADol TAB* [Ultram*] 50 mg PO Q8H PRN #6 tab MDD 3 PRN Reason: Pain Patient Education Materials: Kidney Stones (ED), Urinary Tract Infection in Women (ED) Referrals: Sol Jones MD [Primary Care Provider] - Luis Alfredo Reynolds MD [Medical Doctor] - Additional Instructions: Please follow up with Dr. Reynolds Anitbiotics for UTI Tramadol as needed for pain - Billing Disposition and Condition Condition: STABLE Disposition: HOME
[2017-09-26 13:15] LABS: Urine Appearance Cloudy; Urine Blood 3+ (Negative); Urine Color Yellow; Urine Ketones Trace (Negative); Urine Protein 1+(30 mg/dL) (Negative); Urine Specific Gravity 1.016 (1.010-1.030); Urine Urobilinogen Negative (Negative)
[2017-09-26 13:53] VITALS: BP 152/79
== END 2017-09-26 13:50 | disposition home or self-care (01) ==
LOC: ED 08:25
DX: N13.2 Hydronephrosis with renal and ureteral calculous obstruction (principal); R11.0 Nausea; K80.20 Calculus of gallbladder without cholecystitis without obstruction; I25.10 Atherosclerotic heart disease of native coronary artery without angina pectoris; I11.0 Hypertensive heart disease with heart failure; Z95.810 Presence of automatic (implantable) cardiac defibrillator; E78.00 Pure hypercholesterolemia, unspecified; J44.9 Chronic obstructive pulmonary disease, unspecified; K21.9 Gastro-esophageal reflux disease without esophagitis; Z88.1 Allergy status to other antibiotic agents; Z88.0 Allergy status to penicillin; Z88.2 Allergy status to sulfonamides; Z88.8 Allergy status to other drugs, medicaments and biological substances
CPT/HCPCS: 36415; 74176; 80053; 81003; 81015; 83605; 84484; 85025; 86140; 87086; 93005; 96372; 96374; 96375; 99285; A9270-GY; J1885; J2270; J2405

== ENCOUNTER 2018-01-02 18:30 | Emergency (ER) | payer MEDICARE, MEDICAID ==
--- NOTE | 2018-01-02 19:43 | ED ---
HPI Cardiac - HPI Summary HPI Summary: This is hossein Rojas documenting for Dr. Tanvir Middleton MD. Pt is a 72 y/o F who presents to ED c/o palpitations. She says she had 4 or 5 sessions today where she felt extra heart beats that began around 13:00 today and happened about every 2 hours. Has been feeling extra heart beats for a few days, but today she felt it several times. Rates pain severity as 0/10 at triage. Notes SOB, general malaise, fever, and feeling hot in her forehead. Denies CP. PSHx of a pacemaker and CABG. She is pacemaker dependent, but doesn t have a defibrillator. - History of Current Complaint Chief Complaint: EDDysrhythmPalp Stated Complaint: HAS PACEMAKER/ RAPID RYTHEM EPISODES/SOB Time Seen by Provider: 01/02/18 19:08 Hx Obtained From: Patient Onset/Duration: Started Days Ago, Worse Since - Today at 13:00 Timing: Intermittent Current Severity: None Pain Intensity: 0 Pain Scale Used: 0-10 Numeric Character: Irregular Associated Signs and Symptoms: Positive: Shortness of Breath, Fever, Other: - general malaise. Negative: Chest Pain - Additional Pertinent History Primary Care Physician: [id number] - Allergy/Home Medications Allergies/Adverse Reactions: Allergies Allergy/AdvReac Type Severity Reaction Status Date / Time doxycycline Allergy Unknown Verified 09/26/17 08:33 Reaction Details metoprolol Allergy Unknown Verified 09/26/17 08:33 Reaction Details Penicillins Allergy Rash Verified 09/26/17 08:33 simvastatin Allergy Unknown Verified 09/26/17 08:33 Reaction Details Sulfa (Sulfonamide Allergy Unknown Verified 09/26/17 08:33 Antibiotics) Reaction Details sulfamethoxazole Allergy Unknown Verified 09/26/17 08:33 [From Bactrim] Reaction Details trimethoprim [From Bactrim] Allergy Unknown Verified 09/26/17 08:33 Reaction Details PMH/Surg Hx/FS Hx/Imm Hx Endocrine/Hematology History: Reports: Hx Anticoagulant Therapy, Hx Anemia Denies: Hx Diabetes, Hx Systemic Lupus Erythematosus Cardiovascular History: Reports: Hx Auto Implanted Cardiovert Defib, Hx Congestive Heart Failure, Hx Coronary Artery Disease, Hx Hypercholesterolemia, Hx Hypertension, Hx Pacemaker/ICD, Hx Valvular Heart Disease, Other Cardiovascular Problems/Disorders Respiratory History: Reports: Hx Asthma, Hx Chronic Obstructive Pulmonary Disease (COPD), Hx Pleural Effusion, Hx Sleep Apnea, Other Respiratory Problems/ Disorders - PATIENT STATES FLUID IN LUNGS GI History: Reports: Hx Diverticulosis, Hx Gastroesophageal Reflux Disease History: Denies: Hx Dialysis, Hx Renal Disease Musculoskeletal History: Denies: Hx Rheumatoid Arthritis, Hx Scoliosis Sensory History: Reports: Hx Contacts or Glasses Denies: Hx Hearing Aid Opthamlomology History: Reports: Hx Contacts or Glasses Neurological History: Reports: Hx Seizures - partial simple, Hx Transient Ischemic Attacks (TIA) Denies: Hx Headaches - Cancer History Hx Chemotherapy: No - Surgical History Surgery Procedure, Year, and Place: CABG X 2 (09/2012) at [place], the second one was done at [facility] and 2 months ago 2013. PACEMAKER () [facility] [employer] PH#[phone]. mitral & aortic valve sx 09/21/2012 in [place]. [place] [facility] [place] hyste[place]. CARDIOVERSION, open heart several of these procedures then pacemaker was done. [place] [facility] [place]; left foot SX 15 years ago at [facility]; Hx Anesthesia Reactions: No - Immunization History Date of Tetanus Vaccine: UTD Date of Influenza Vaccine: UTD Infectious Disease History: No Infectious Disease History: Reports: Hx Shingles Denies: Hx Clostridium Difficile, Hx Hepatitis, Hx of Known/Suspected MRSA, Hx Tuberculosis, Traveled Outside the in Last 30 Days - Family History Known Family History: Positive: Cardiac Disease, Hypertension - Social History Alcohol Use: None Hx Substance Use: No Substance Use Type: Reports: None Hx Tobacco Use: No Smoking Status (MU): Never Smoked Tobacco Review of Systems Positive: Fever, Other - General malaise, feeling hot in forehead Positive: Palpitations. Negative: Chest Pain Positive: Shortness Of Breath All Other Systems Reviewed And Are Negative: Yes Physical Exam - Summary Physical Exam Summary: Appearance: Well appearing, no pain distress Skin: warm, dry, reflects adequate perfusion Head/face: normal Eyes: EOMI, EILEEN ENT: normal Neck: supple, non-tender Respiratory: CTA, breath sounds present Cardiovascular: RRR, pulses symmetrical Abdomen: non-tender, soft Bowel: present Musculoskeletal: normal, strength/ROM intact Neuro: normal, sensory motor intact, A&Ox3 Triage Information Reviewed: Yes Vital Signs On Initial Exam: Initial Vitals Temp Pulse Resp BP Pulse Ox 99.1 F 69 15 161/84 99 01/02/18 18:37 01/02/18 18:37 01/02/18 18:37 01/02/18 18:37 01/02/18 18:37 Vital Signs Reviewed: Yes Diagnostics - Vital Signs Vital Signs Temp Pulse Resp BP Pulse Ox 01/02/18 19:14 75 197/80 99 01/02/18 19:11 82 98 01/02/18 18:37 99.1 F 69 15 161/84 99 - Laboratory Result Diagrams: 01/02/18 20:02 01/02/18 20:00 Lab Statement: Any lab studies that have been ordered have been reviewed, and results considered in the medical decision making process. - Radiology CXR Radiology Interpretation Completed By: ED Physician - Negative - EKG 19:10 Cardiac Rate: NL - 76 bpm EKG Interpretation: Atrial-sensed ventricular-paced Re-Evaluation - Re-Evaluation First Eval Re-Evaluation Time: 22:24 - Discussed discharge plans. Pt was agreeable with plan. Disposition - Course Course Of Treatment: Pt is a 72 y/o F who presents to ED c/o palpitations; she says she had 4 or 5 sessions today where she felt extra heart beats that began around 13:00 today and happened about every 2 hours. Notes SOB, general malaise , fever, and feeling hot in her forehead. Denies CP. PSHx of a pacemaker and CABG. Physical exam was normal. CXR was negative. EKG at 19:10 showed heart rate was 76 bpm and atrial-sensed ventricular-paced. Pt was diagnosed with palpitations and discharged home. Pt was informed and agreeable with this plan. - Differential Dx - Cardiopulmonary Differential Diagnoses - Cardiopulmonary: CAD, CHF, Lower Resp Infection, Paroxysmal SVT - Diagnoses Provider Diagnoses: Palpitations Discharge - Sign-Out/Discharge Documenting (check all that apply): Patient Departure - Discharge - Discharge Plan Condition: Stable Disposition: HOME Patient Education Materials: Heart Palpitations (ED) Referrals: Sol Jones MD [Primary Care Provider] - 3 Days Additional Instructions: RETURN TO ED FOR ANY NEW OR WORSENING SYMPTOMS. - Billing Disposition and Condition Condition: STABLE Disposition: Home
[2018-01-02 20:11] LABS: ABS Basophils 0 10^3/ul (0-0.2); ABS Eosinophils 0.1 10^3/ul (0-0.6); ABS Lymphocytes 1.4 10^3/ul (1.0-4.8); ABS Monocytes 0.5 10^3/ul (0-0.8); ABS Neutrophils 4.3 10^3/ul (1.5-7.7); ABS Nucleated RBC 0 10^3/ul; Hematocrit 40 % (35-47); Hemoglobin 13.5 g/dl (12.0-16.0); Lymphocyte % 22.7 % (25-47); Mean Corpuscular HGB Conc 34 g/dl (31-36); Mean Corpuscular Hemoglobin 31 pg (27-31); Mean Corpuscular Volume 91 fL (80-97); Mean Platelet Volume 8.4 um3 (7.4-10.4); Nucleated Red Blood Cells % 0; Platelet Count 188 10^3/ul (150-450); Red Blood Count 4.41 10^6/ul (4.00-5.40); Red Cell Distribution Width 13 % (10.5-15); White Blood Count 6.3 10^3/ul (3.5-10.8)
[2018-01-02 20:43] LABS: EGFR Non-African American 81.4 (>60)
[2018-01-02 21:00] LABS: Urine Appearance Clear; Urine Blood Negative (Negative); Urine Color Yellow; Urine Ketones Negative (Negative); Urine Protein Negative (Negative); Urine Specific Gravity 1.003 (1.010-1.030); Urine Urobilinogen Negative (Negative)
[2018-01-02 21:13] LABS: INR 0.9 (0.77-1.02)
[2018-01-02 23:08] VITALS: BP 154/101
--- NOTE | 2018-01-03 07:31 | RAD ---
HISTORY: palpitations COMPARISONS: July 05, 2017 VIEWS: 1: frontal portable view of the chest at 8:12 PM FINDINGS: LINES AND TUBES: A left-sided pacemaker is noted. CARDIOMEDIASTINAL SILHOUETTE: The cardiomediastinal silhouette is normal for portable technique. PLEURA: The costophrenic angles are sharp. No pleural abnormalities are noted. LUNG PARENCHYMA: There is hyperinflation. ABDOMEN: The upper abdomen is clear. There is no subphrenic gas. BONES AND SOFT TISSUES: The patient is status post median sternotomy. IMPRESSION: HYPERINFLATION. NO ACTIVE CARDIOPULMONARY DISEASE. R0
== END 2018-01-02 23:12 | disposition home or self-care (01) ==
LOC: ED 18:30
DX: R00.2 Palpitations (principal); R06.02 Shortness of breath; R53.81 Other malaise; R50.9 Fever, unspecified; Z95.810 Presence of automatic (implantable) cardiac defibrillator; Z95.1 Presence of aortocoronary bypass graft; Z88.1 Allergy status to other antibiotic agents; Z88.0 Allergy status to penicillin; Z88.2 Allergy status to sulfonamides; Z88.8 Allergy status to other drugs, medicaments and biological substances; Z82.49 Family history of ischemic heart disease and other diseases of the circulatory system
CPT/HCPCS: 36415; 71045; 80053; 81003; 83605; 83735; 83880; 84484; 85025; 85610; 85730; 93005; 99283

== ENCOUNTER 2018-01-06 10:29 | Emergency (ER) | payer MEDICARE, MEDICAID ==
[2018-01-06] MEDS: NS 0.9% 1000 ML* 2,000 ML IV ONE (11:45)
[2018-01-06 11:59] LABS: ABS Basophils 0 10^3/ul (0-0.2); ABS Eosinophils 0 10^3/ul (0-0.6); ABS Lymphocytes 0.8 10^3/ul (1.0-4.8); ABS Monocytes 0.4 10^3/ul (0-0.8); ABS Neutrophils 4.5 10^3/ul (1.5-7.7); ABS Nucleated RBC 0 10^3/ul; Eosinophil % 0.5 % (0-6); Hematocrit 40 % (35-47); Hemoglobin 13.5 g/dl (12.0-16.0); Lymphocyte % 13.6 % (25-47); Mean Corpuscular HGB Conc 34 g/dl (31-36); Mean Corpuscular Hemoglobin 31 pg (27-31); Mean Corpuscular Volume 91 fL (80-97); Mean Platelet Volume 8.6 um3 (7.4-10.4); Nucleated Red Blood Cells % 0; Platelet Count 183 10^3/ul (150-450); Red Blood Count 4.38 10^6/ul (4.00-5.40); Red Cell Distribution Width 14 % (10.5-15); White Blood Count 5.7 10^3/ul (3.5-10.8)
[2018-01-06 12:01] LABS: Urine Appearance Clear; Urine Blood Negative (Negative); Urine Color Yellow; Urine Ketones Negative (Negative); Urine Protein Negative (Negative); Urine Specific Gravity 1.004 (1.010-1.030); Urine Urobilinogen Negative (Negative)
--- NOTE | 2018-01-06 12:04 | ED ---
Syncope/Near Syncope - HPI Summary HPI Summary: This is hossein Manzanares documenting for attending Grisel Garcia M.D. This patient is a 72 year old F presenting to [facility] accompanied by her daughter in law with a chief complaint of near-syncope since 0900. Pt was here on for palpitations. SHx cardiac surg x 2, 1st (2013) put in mechanical valves, later (12/2014) put 1 porcine, 1 bovine mitral and aortic valves. Pt endorses she was taking out trash and came back in the house and experienced weakness, fatigue, lethargy, and instantly started feeling dehydrated (similar episodes pt also experienced feeling of immediate dehydration). Pt endorses a few sharp upper right-sided CP. Pt endorses HTN; she checked her blood pressure after this episode; she states her nl BP is 118/60-70, but is currently 179/87. Pt endorses [employer] pacer set at 72; pacer was queried on 01/02/18 and everything was fine. Her osteologist is Dr. Saeed. She notes she experienced a low grade fever during her last ED visit 01/02/18, and feeling hot in her face. Pt currently endorses dental pain, gingivitis, and gum swelling. Pt denies N/V, abd pain, SKY, and dizziness. Pt not currently on blood thinners. PMHx flutter and Afib. FHx mother: valve disease, CA. no DM, grandmother: heart disease. - History Of Current Complaint Chief Complaint: EDWeakness Time Seen by Provider: 01/06/18 11:00 Hx Obtained From: Patient Onset/Duration: Sudden Onset, Lasting Minutes Timing: Constant Context: Unwitnessed - near syncope Activity At Onset: Exertion - taking out the garbage Associated Head Trauma: No Aggravating Factor(s): Exertion Alleviating Factor(s): Nothing Associated Signs And Symptoms: Dizzy, Lightheadedness, Weakness, Other - dental pain Related History: Similar Episode/Dx as - palpitations 01/02/18 Frequency: Episodes x___ - 1 - Allergies/Home Medications Allergies/Adverse Reactions: Allergies Allergy/AdvReac Type Severity Reaction Status Date / Time doxycycline Allergy Unknown Verified 09/26/17 08:33 Reaction Details metoprolol Allergy Unknown Verified 09/26/17 08:33 Reaction Details Penicillins Allergy Rash Verified 09/26/17 08:33 simvastatin Allergy Unknown Verified 09/26/17 08:33 Reaction Details Sulfa (Sulfonamide Allergy Unknown Verified 09/26/17 08:33 Antibiotics) Reaction Details sulfamethoxazole Allergy Unknown Verified 09/26/17 08:33 [From Bactrim] Reaction Details trimethoprim [From Bactrim] Allergy Unknown Verified 09/26/17 08:33 Reaction Details PMH/Surg Hx/FS Hx/Imm Hx Endocrine/Hematology History: Reports: Hx Anemia Denies: Hx Diabetes, Hx Systemic Lupus Erythematosus Cardiovascular History: Reports: Hx Atrial Fibrillation, Hx Congestive Heart Failure, Hx Coronary Artery Disease, Hx Hypercholesterolemia, Hx Hypertension, Hx Pacemaker/ICD, Hx Valvular Heart Disease, Other Cardiovascular Problems/ Disorders - aortic and mitral valve replacements Respiratory History: Reports: Hx Asthma, Hx Chronic Obstructive Pulmonary Disease (COPD), Hx Pleural Effusion, Hx Sleep Apnea GI History: Reports: Hx Diverticulosis, Hx Gastroesophageal Reflux Disease History: Denies: Hx Dialysis, Hx Renal Disease Musculoskeletal History: Denies: Hx Rheumatoid Arthritis, Hx Scoliosis Sensory History: Reports: Hx Contacts or Glasses Denies: Hx Legally Blind, Hx Deafness, Hx Hearing Aid Opthamlomology History: Reports: Hx Contacts or Glasses Denies: Hx Legally Blind EENT History: Denies: Hx Deafness Neurological History: Reports: Hx Seizures - partial simple, Hx Transient Ischemic Attacks (TIA) Denies: Hx Headaches - Cancer History Hx Chemotherapy: No - Surgical History Surgery Procedure, Year, and Place: CABG X 2 (09/2012) at [place], the second one was done at [facility] and in 2013. PACEMAKER (-2009) [facility] [facility]#[phone]. mitral & aortic valve sx 09/21/2012 in [place]. left thoracetesis 12/2012 @ [facility] [place]. tubal ligation & hysterectomy. CARDIOVERSION, open heart 12/2013 several of these procedures then pacemaker was done. Sigmoid colon resection at [facility] [place] pt cannot remember the year; left foot SX [address] [facility] Hx Anesthesia Reactions: No - Immunization History Date of Tetanus Vaccine: UTD Date of Influenza Vaccine: UTD Infectious Disease History: Yes Infectious Disease History: Reports: Hx Shingles Denies: Hx Clostridium Difficile, Hx Hepatitis, Hx of Known/Suspected MRSA, Hx Tuberculosis, Traveled Outside the [place] in Last 30 Days - Family History Known Family History: Positive: Cardiac Disease, Hypertension, Other - valvular disease - Social History Occupation: Retired Alcohol Use: None Hx Substance Use: No Substance Use Type: Reports: None Hx Tobacco Use: No Smoking Status (MU): Never Smoked Tobacco Review of Systems Positive: Fatigue, Other - lethargy, feeling dehydrated. Negative: Fever Positive: Dental Pain - right sided gum, lower Positive: Chest Pain Respiratory: Negative Negative: Abdominal Pain, Vomiting, Nausea Musculoskeletal: Negative Skin: Negative Neurological: Other - NEGATIVE: dizziness Positive: Weakness, Syncope - near-syncope. Negative: Headache Psychological: Normal All Other Systems Reviewed And Are Negative: Yes Physical Exam - Summary Physical Exam Summary: Appearance: Well-appearing, no pain distress, well-nourished, pacer in left- anterior chest Skin: Warm, color reflects adequate perfusion, dry, pacer in left-anterior chest Head: Normal Head/Face inspection, atraumatic Eyes: Conjunctiva clear ENT: Normal inspection Neck: Supple, no nodes, no JVD Respiratory: Lungs clear, normal breath sounds, no respiratory distress Cardio: RRR, II/ systolic murmur at the base, pulses normal, brisk capillary refill, pacer in left-anterior chest Abdomen: Soft, non-tender Bowel sounds: Present Musculoskeletal: Strength Intact/ROM intact, no calf tenderness, no edema. Psychological: Normal Neuro: Alert, muscle tone normal, no focal deficit Triage Information Reviewed: Yes Vital Signs On Initial Exam: Initial Vitals Temp Pulse Resp BP Pulse Ox 98.1 F 70 17 172/67 99 01/06/18 10:49 01/06/18 10:49 01/06/18 10:49 01/06/18 10:49 01/06/18 10:49 Vital Signs Reviewed: Yes Diagnostics - Vital Signs Vital Signs Temp Pulse Resp BP Pulse Ox 01/06/18 11:13 75 26 179/87 100 01/06/18 11:09 70 17 99 01/06/18 10:49 98.1 F 70 17 172/67 99 - Laboratory Result Diagrams: 01/06/18 11:44 01/06/18 11:44 Lab Statement: Any lab studies that have been ordered have been reviewed, and results considered in the medical decision making process. - Radiology CXR Xray Interpretation: No Acute Changes Radiology Interpretation Completed By: Radiologist - Post-surgical changes, no evidence for acute finding. Dr. Garcia has reviewed this report. - CT Brain CT Interpretation: No Acute Changes CT Interpretation Completed By: Radiologist - No acute intracranial pathology CTA chest/thorax CT Interpretation: No Acute Changes CT Interpretation Completed By: Radiologist - No pulmonary embolus is noted. No evidence of aneurysmal dilatation or thoracic aortic dissection is noted. Basilar scarring is noted. 3 mm nodule in the right upper lobe unchanged from prior exam. Dr. Garcia has reviewed this report. - EKG 1118 EKG Interpretation: 100% paced EKG Comparison: No Significant Change - no changes when c/w 01/02/18 Re-Evaluation - Re-Evaluation First Eval Re-Evaluation Time: 12:47 Change: Improved Comment: Pt feeling well, no new complaints. Second Eval Re-Evaluation Time: 13:25 Change: Unchanged Comment: Pt advised of CTA chest order for elevated d dimer, near syncope. No CP, SOB at this time. Daughter Rodrigo on the phone and daughter in law remains in room with pt. Answered questions. Third Eval Re-Evaluation Time: 14:50 Change: Unchanged Comment: pt still c/o right lower dental pain and swelling, but no abscess or swelling appreciated by me on exam. Pt states she can't wear her partial due to lower dental pain and swelling. Pt states they queried her pacemaker on 01/02 and it was OK. Course/Dx Course Of Treatment: (-) CT brain. (-) CTA chest/thorax. (-) CXR. EKG 100% paced, no changes when compared with 01/02/18 EKG. At 12:44, nurse Key makes me aware of pt's hx CHF, BNP elevated. Will give 1L NS IV slowly. I spoke with Dr. Loomis who stated that if pacer interrogation was normal on 01/02/18 , that it did not need to be repeated. I spoke with Fady from [employer] who referred me to Cristobal who was electrical electronics engineers for [employer] on 01/02/18 (cell [phone]) who stated that the pacer had normal function. (see discharge instructions for full report from Cristobal). Labs, imaging and pacer interrogation sent with pt. Pt is aware of the stable pulmonary nodule noted on CT imaging and is advised to follow up per protocol regarding the nodule and pt voices understanding. Daughter in law witnesses these instructions also. - Diagnoses Differential Diagnosis/HQI/PQRI: Positive: Cerebral Vascular Accident, Coronary Artery Disease, Dysrhythmia, Metabolic Reaction, Myocardial Infarction, Medication Reaction, Pulmonary Embolism, Seizure, Transient Ischemic Attack, Vasovagal Episode Provider Diagnoses: Generalized weakness, Pacemaker, Gingivitis, Pulmonary nodule - Physician Notifications Discussed Care of Patient With: Nabeel Loomis Time Discussed With Above Provider: 15:16 Instructed by Provider To: Other - If we could produce pacer query from 01/02/18 , we don't need to repeat it. Discharge - Sign-Out/Discharge Documenting (check all that apply): Patient Departure - discharge - Discharge Plan Condition: Stable Disposition: HOME Patient Education Materials: Gingivitis (ED), Weakness (ED), Pacemaker (DC) Referrals: Sol Jones MD [Primary Care Provider] - 2 Days Mitch Day DO [Medical Doctor] - (Keep your appointment with Dr. Day, osteologist for tomorrow. ) Additional Instructions: We spoke with Cristobal from [employer] who did the pacemaker interrogation for you on Wednesday01/02/18. He stated that the pacemaker has normal function. There are 9.5 years on the battery. The leads are all good. You were 100% paced on both the left and right side. There was no arrythmia. We have given you a copy of all of your studies today. We did not find a cause for your weakness, and do not feel you need admission to the hospital at this time. Keep your appointment with Dr. Day tomorrow. See Dr. Jones in the next 1-2 days. Your gingivitis did not look like a source of bacterial infection, and we do not think that you have endocarditis based on your exam and tests today. You may want to see a specialist, a medical staff assistant. Have definite follow up with your dentist as well. - Billing Disposition and Condition Condition: STABLE Disposition: Home Consult Consult: [id number] Dr. Day: will see pt tomorrow, recommends calling Dr. Loomis.
--- NOTE | 2018-01-06 12:10 | RAD ---
HISTORY: near syncope COMPARISONS: July 05, 2017 TECHNIQUE: Multiple contiguous axial CT scans were obtained of the head without intravenous contrast. FINDINGS: HEMORRHAGE/INFARCT: There is no hemorrhage or acute infarct. MASSES/SHIFT: There is no mass or shift. EXTRA-AXIAL SPACES: There are no extra-axial fluid collections. SULCI AND VENTRICLES: The sulci and ventricles are normal in size and position for the patient's stated age. CEREBRUM: There are no focal parenchymal abnormalities. BRAINSTEM: There are no focal parenchymal abnormalities. CEREBELLUM: There are no focal parenchymal abnormalities. VESSELS: There is calcification of the cavernous segments of the internal carotid arteries bilaterally. PARANASAL SINUSES: The paranasal sinuses are clear. ORBITS: The orbits are unremarkable. BONES AND SOFT TISSUE: No bone or soft tissue abnormalities are noted. OTHER: None IMPRESSION: NO ACUTE INTRACRANIAL PATHOLOGY.
[2018-01-06 12:17] LABS: EGFR Non-African American 85.5 (>60)
--- NOTE | 2018-01-06 12:25 | RAD ---
INDICATION: Near syncope. COMPARISON: Comparison is made with a prior chest x-ray study from July 05, 2017. TECHNIQUE: A portable view of the chest was obtained. FINDINGS: The patient is status post sternotomy and coronary artery bypass surgery. There is a multilead transvenous pacemaker present. The heart is within normal limits in size. The lungs are underinflated and clear. No pleural effusion is seen. IMPRESSION: POSTSURGICAL CHANGES, NO EVIDENCE FOR ACUTE FINDING.
[2018-01-06 12:35] LABS: INR 0.94 (0.77-1.02)
[2018-01-06] MEDS ORDERED: Iodixanol* (CONTRAST) 320 MG/ML 100 ML SDV IV ONE (13:33)
--- NOTE | 2018-01-06 14:15 | RAD ---
Indication: Syncope, elevated d-dimer. Contrast: Administered 69.2 ml of VISAPAQUE 320 mg/ml CTA of the chest was performed after IV contrast administration. Coronal and sagittal reconstructed images were obtained. The pulmonary arterial tree is well opacified. There are no filling defects present to suggest pulmonary embolus. The aorta demonstrates no evidence of aortic dissection. Atherosclerotic aorta is noted. The heart demonstrates no pericardial effusion. Inferior thyroid lobes are unremarkable. There is no mediastinal or hilar adenopathy. The heart demonstrates no pericardial The trachea and major bronchi appear patent. Lung reyna demonstrate no evidence of alveolar consolidation. Small 3 mm nodule is noted in the inferior right upper lobe which is noncalcified. This is unchanged from December 12, 2016. Scarring or atelectasis in the lung bases are noted. The visualized abdominal organs are grossly unremarkable. IMPRESSION: No pulmonary embolus is noted. No evidence of aneurysmal dilatation or thoracic aortic dissection is noted. Basilar scarring is noted. 3 mm nodule in the right upper lobe unchanged from prior exam.
[2018-01-06 15:23] VITALS: BP 170/84
== END 2018-01-06 16:37 | disposition home or self-care (01) ==
LOC: ED 10:29
DX: R53.1 Weakness (principal); K05.10 Chronic gingivitis, plaque induced; R91.1 Solitary pulmonary nodule; I10 Essential (primary) hypertension; I48.91 Unspecified atrial fibrillation; I48.92 Unspecified atrial flutter; Z95.0 Presence of cardiac pacemaker; Z95.4 Presence of other heart-valve replacement; Z82.49 Family history of ischemic heart disease and other diseases of the circulatory system; Z88.3 Allergy status to other anti-infective agents; Z88.0 Allergy status to penicillin; Z88.2 Allergy status to sulfonamides; Z88.8 Allergy status to other drugs, medicaments and biological substances
CPT/HCPCS: 36415; 70450; 71045; 71275; 80053; 80320; 81003; 82140; 82550; 83605; 83735; 83880; 84443; 84484; 85025; 85379; 85610; 85652; 85730; 86140; 93005; 96360; 99283; G0480; Q9967

== ENCOUNTER 2019-05-16 11:28 | Emergency (ER) | payer MEDICAID, MEDICARE ==
--- OUTSIDE RECORDS SUMMARY | 2019-05-16 11:57 | XMS REPORT | Summary of Care ---
:1945 Author Organization [facility] Address [address] [address] Care Team Providers Name Role Phone RobertSol Primary Care Provider Amado Segal MD Unavailable Annmarie Up Unavailable Reason for Visit Reason Comments Sore Throat w/ stabbing right ear pain, and cough for 7 days Encounter Details Date Type Department Care Team Description 05/06/2019 Office Visit [facility] Thompson, Debora, Sore throat ( Primary Dx); Practice PA-C Right ear pain [address] [place] [address] [place] [address] [phone] Allergies Active Allergy Reactions Severity Noted Date Comments Azasite Other 12/12/2012 Patient stated she has A. Fib and A. Flutter Bactrim 08/07/2004 Fluocinolone ASSISTANT PROFESSOR Reaction 10/04/2017 Nervous - Doxycycline GI Reaction 12/12/2012 Pain and diarrhea Metoprolol Tartrate 08/07/2004 Lovastatin 08/07/2004 Penicillins 08/07/2004 Sulfa Antibiotics Unknown Reaction 06/16/2007 documented as of this encounter (statuses as of 05/06/2019) Medications Medication Sig Dispensed Refills Start Date End Date Status acetaminophen Take 650 mg by 0 Active (TYLENOL) 325 MG Oral mouth EVERY FOUR Tab HOURS NEEDED. daily vitamin Oral Tab Take 1 Tab by 0 Active mouth DAILY. Probiotic Product Take by mouth 0 Active (PROBIOTIC ADVANCED DAILY. PO) B Complex Vitamins Take by mouth 0 Active (VITAMIN B COMPLEX PO) DAILY. ALPHA-LIPOIC ACID PO Take by mouth 0 Active DAILY. D3-50 11411 units Oral EVERY THIRTY DAYS. 0 12/25/2016 Active Cap IBUPROFEN 200 Take 200 mg by 0 Active POIndications: pt mouth. alternating with 325mg tylenol albuterol HFA Take 2 Puffs by 1 Inhaler 2 05/06/2017 Active (VENTOLIN) 108 (90 inhalation EVERY Base) MCG/ACT FOUR HOURS Inhalation Aero NEEDED (shortness SolnIndications: of breath). Asthma with acute exacerbation, unspecified asthma severity, unspecified whether persistent TURMERIC PO Take by mouth. 0 Active diltiazem (CARDIZEM) Take 1 Tab by 180 Tab 1 03/17/2019 Active 30 MG Oral Tab mouth TWICE DAILY. pantoprazole Take 1 Tab by 90 Tab 1 03/17/2019 Active (PROTONIX) 40 MG Oral mouth DAILY. Tab EC meclizine (ANTIVERT) Take 1 Tab by 90 Tab 1 03/17/2019 Active 12.5 MG Oral Tab mouth THREE TIMES DAILY NEEDED for dizziness/vertigo. cefuroxime (CEFTIN) Take 1 Tab by 20 Tab 0 05/06/2019 Active 500 MG Oral Tab mouth EVERY TWELVE HOURS. fluconazole (DIFLUCAN) Take 1 Tab by 2 Tab 0 05/06/2019 Active 150 MG Oral Tab mouth DAILY. documented as of this encounter (statuses as of 05/06/2019) Active Problems Problem Noted Date Memory difficulties 05/25/2018 Overview: Clock face perfect - / MINIMENTAL STATUS EXAM - Closed nondisplaced fracture of left ilium 01/13/2018 Lipid disorder 05/24/2017 ICD (implantable cardioverter-defibrillator) malfunction 09/29/2016 Osteoporosis 06/13/2015 Overview: Start fosamax - 1. 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 [place] Pulmonary Dr Sky Leos [facility] S/P AVR 10/14/2012 Overview: Mechanical AVR Dr Corley, [facility] 09/2012, bioprosthetic valve replacement at [facility] December 2013 S/P MVR (mitral valve replacement) 10/14/2012 Overview: Mechanical mvr [facility] 09/2012, bioprosthetic valve replacement at [place] December 2013 S/P Maze operation for atrial fibrillation 10/14/2012 Seizure disorder 10/14/2012 Overview: EEG [facility] erik-operative 09/[address] [facility] Seborrheic keratosis 01/27/2011 Sun-damaged skin 01/27/2011 Headache(784.0) 01/09/2009 Overview: Acute, [facility] emergency room CT brain and CTA of brain negative. 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 Bioprosthetic MVR and AVR. Concurrent use of medication affecting anticoagulation includes: Acetaminophen may result in an increased risk of bleeding. Aspirin use doubles risk of hemorrhage (additive anticoagulant/antiplatelet effects) Spironolactone (Aldactone) may result in increased decreased anticoagulant effectiveness Update referral 08/2011, 10/2012, 11/2013 Updated ACS orders 10/18/12, 02/21/14 Esophageal reflux 06/16/2007 Overview: EGD Debbie 2007 Asthma, moderate persistent, well-controlled 06/16/2007 Unspecified transient cerebral ischemia 06/16/2007 Overview: Transient aphasia [facility] 2005, Mild bilateral carotid artery stenosis Allergic rhinitis, cause unspecified 06/16/2007 Obstructive sleep apnea 06/16/2007 Overview: CPAP qhs. Essential hypertension, benign 11/19/2006 Atrial fibrillation 11/19/2006 Overview: Recurrent S/p multiple cardioversions Dr Barron S/p flutter ablation Dr Indu Lewis 2006 S/p d/c cardioversion [facility] 12/12. Stress echo negative Dr Barron 01/12. S/p repeat ablation Dr Indu Lewis 01/[address] [facility] 12/[address] Barron [facility] 01/13 Pacemaker placed [facility] fall 2009-Dr Samayoa [facility] Dr Isaiah Sims11/15/09 RF ablation for A-Fib documented as of this encounter (statuses as of 05/06/2019) Resolved Problems Problem Noted Date Resolved Date Encounter for therapeutic drug monitoring 12/06/2012 03/30/2013 Encounter for therapeutic drug monitoring 12/19/2009 07/21/2010 Mitral valve prolapse 02/21/2008 10/14/2012 Closed fracture of lateral malleolus 11/25/2004 12/03/2007 Chest pain, unspecified 08/09/2004 09/12/2007 documented as of this encounter (statuses as of 05/06/2019) Immunizations Name Administration Dates Next Due Influenza (IM) Preservative Free 03/06/2013, 03/15/2012, 03/13/2011, 03/20/2010 Influenza (IM) W/Pres 03/27/2014 Influenza Vaccine High Dose 04/15/2018, 03/26/2017, 04/27/2016, 04/09/2015 Influenza Vaccine Whole 03/29/2009, 03/30/2008 PNEUMOCOCCAL POLYSACCHARIDE VACCINE 04/27/2016, 04/12/2014 Pneumococcal Conjugate(13 Valent) 05/22/2015 Varicella Vaccine Live 04/14/2007 documented as of this encounter Social History Tobacco Use Types Packs/Day Years Used Date Never Smoker Smokeless Tobacco: Never Used Alcohol Use Drinks/Week oz/Week Comments No 0 Standard drinks or equivalent 0.0 Sex Assigned at Date Recorded Not on file Job Start Date Occupation Industry Not on file Not on file Not on file Travel History Travel Start Travel End No recent travel history available. documented as of this encounter Last Filed Vital Signs Vital Sign Reading Time Taken Comments Blood Pressure 136/78 05/06/2019 9:00 AM EST Pulse 70 05/06/2019 9:00 AM EST Temperature 36.3 05/06/2019 9:00 AM EST C (97.4 F) Respiratory Rate - - Oxygen Saturation 98% 05/06/2019 9:00 AM EST Inhaled Oxygen Concentration - - Weight 66.7 kg (147 lb) 05/06/2019 9:00 AM EST Height 160 cm (5' 3") 05/06/2019 9:00 AM EST Body Mass Index 26.04 05/06/2019 9:00 AM EST documented in this encounter Patient Instructions Patient InstructionsDoDebora charles PA-C - 05/06/2019 8:20 AM ESTEscribed Ceftin 500mg, 1 pill twice a day x 10 days, take with food Escribed Diflucan 150mg, take if vaginal yeast deveolps Will send throat swab to lab for culture, will call with results Avoid creamy foods and drink Rest, gargle with warm salt water Push water, soup, juice, tea with honey/lemon OTC Tylenol/Ibuprofen for fever/pain Call if not improving or with any questions or concerns documented in this encounter Progress Notes Debora Thompson PA-C - 05/06/2019 8:20 AM EST PATIENT: Magy Ramirez : 1945 DATE OF SERVICE: 05/06/2019 REFERRING PRACTITIONER: Self-Referred PRIMARY CARE PROVIDER: Sol Jones CHIEF COMPLAINT: Chief Complaint Patient presents with Sore Throat w/ stabbing right ear pain, and cough for 7 days Subjective HISTORY OF PRESENT ILLNESS: Magy Ramirez is a 73-y.o. female who presents with sore throat, right ear pain, coughing -- light green sputum x 7 days Taking OTC ibuprofen, gargling with salt water -- some relief Took pain pill 12:30 am for ear pain -- gave relief Home heat is hot, forced air, using humidifier Denies fever, chills, nausea, vomiting, diarrhea, chest pains, SOB Past Medical History: Diagnosis Date Allergic rhinitis, cause unspecified 06/16/2007 Arthritis Asthma Atrial fibrillation (HCC) Diverticulitis large intestine Esophageal reflux 06/16/2007 Hormones and synthetic substitutes causing adverse effect in therapeutic use not currently Kidney stone Obstructive sleep apnea (adult) (pediatric) 06/16/2007 Other and unspecified hyperlipidemia 06/16/2007 Postmenopausal Seizures (HCC) Unspecified asthma(493.90) 06/16/2007 Unspecified transient cerebral ischemia 06/16/2007 Past Surgical History: Procedure Laterality Date BILAT TUBAL CRUSHING NEC NO DATE AVAILABLE CARDIAC SURGERY: POSTOP VALVE CARDIOVERSION 01.25.09 [facility] COLONOSCOPY 09.29.07 COLONOSCOPY N/A 10/25/2014 Procedure: COLONOSCOPY WITH HOT BIOPSYS ; Surgeon: Jake Vega Jr., MD ; Location: [facility] [place] OTHER AND UNSPECIFIED HYSTERECTOMY NO DATE AVAILABLE OTHER MISC PROCEDURES polypectomy OTHER MISC PROCEDURES knee NJ EXC TUMOR SOFT TISSUE LEG/ANKLE SUBQ <3CM 12/2005 LIPOMA NJ INS NEW/RPLCMT PRM PACEMAKR W/TRANS ELTRD ATRIAL NJ RMVL IMPLTBL DFB PLS GEN W/RPLCMT PLS GEN CLIENT SERVICES ADMINISTRATOR LD Left 09/29/2016 Procedure: INSERTION OF ICD GENERTOR CHANGE; Surgeon: Yonny Griggs MD; Location: [facility] CCL NJ TOTAL ABDOM HYSTERECTOMY SS: DIVERTICULITIS( ADMISSION-DAY 3) sigmoid colon removed Family History Problem Relation Age of Onset Arthritis Mother Heart Mother Hypertension Mother Uterine Cancer Mother Alcohol/Drug Father Cancer Brother prostate? COPD Sister smoker No Known Problems Sister No Known Problems Daughter Alcohol/Drug Son No Known Problems Daughter Alcohol/Drug Daughter Current Outpatient Medications Medication Sig acetaminophen (TYLENOL) 325 MG Oral Tab Take 650 mg by mouth EVERY FOUR HOURS NEEDED. albuterol HFA (VENTOLIN) 108 (90 Base) MCG/ACT Inhalation Aero Soln Take 2 Puffs by inhalation EVERY FOUR HOURS NEEDED (shortness of breath). ALPHA-LIPOIC ACID PO Take by mouth DAILY. B Complex Vitamins (VITAMIN B COMPLEX PO) Take by mouth DAILY. D3-50 11874 units Oral Cap EVERY THIRTY DAYS. daily vitamin Oral Tab Take 1 Tab by mouth DAILY. diltiazem (CARDIZEM) 30 MG Oral Tab Take 1 Tab by mouth TWICE DAILY. IBUPROFEN 200 PO Take 200 mg by mouth. meclizine (ANTIVERT) 12.5 MG Oral Tab Take 1 Tab by mouth THREE TIMES DAILY NEEDED for dizziness/vertigo. pantoprazole (PROTONIX) 40 MG Oral Tab EC Take 1 Tab by mouth DAILY. Probiotic Product (PROBIOTIC ADVANCED PO) Take by mouth DAILY. TURMERIC PO Take by mouth. No current facility-administered medications for this visit. Allergies Allergen Reactions Azithromycin [Azasite] Other Patient stated she has A. Fib and A. Flutter Bactrim Kfcequmo-Cgtkuan-Sbrvex [Fluocinolone] ASSISTANT PROFESSOR Reaction Nervous - Doxycycline GI Reaction Pain and diarrhea Lopressor [Metoprolol Tartrate] Mevacor [Lovastatin] Pcn [Penicillins] Sulfa Antibiotics Unknown Reaction Social History Socioeconomic History Marital status: Spouse name: Not on file Number of children: Not on file Years of education: Not on file Highest education level: Not on file Occupational History Not on file Social Needs Financial resource strain: Not on file Food insecurity: Worry: Not on file Inability: Not on file Transportation needs: Medical: Not on file Non-medical: Not on file Tobacco Use Smoking status: Never Smoker Smokeless tobacco: Never Used Substance and Sexual Activity Alcohol use: No Alcohol/week: 0.0 standard drinks Drug use: No Sexual activity: Not Currently Lifestyle Physical activity: Days per week: Not on file Minutes per session: Not on file Stress: Not on file Relationships Social connections: Talks on phone: Not on file Gets together: Not on file Attends worship service: Not on file Active member of club or organization: Not on file Attends meetings of clubs or organizations: Not on file Relationship status: Not on file Intimate partner violence: Fear of current or ex partner: Not on file Emotionally abused: Not on file Physically abused: Not on file Forced sexual activity: Not on file Other Topics Concern Back Care Not Asked Bike Helmet Not Asked Blood Transfusions Not Asked Caffeine Concern Not Asked Exercise No Hobby Hazards Not Asked International Travel Not Asked Service Not Asked Occupational Exposure Not Asked Seat Belt Yes Self-Exams Not Asked Sleep Concern Not Asked Special Diet Not Asked Stress Concern Not Asked Weight Concern Yes Comment: trying to lose weight-loss of 10 lbs in past year. Social History Narrative Lives in [place] On disability for back and foot problems REVIEW OF SYSTEMS: Skin: negative skin lesions Eyes: negative visual blurring Ears/Nose/Throat: positive rhinorrhea, sore throat, sinus pressure, post nasal drip Respiratory: positive cough, asthma Cardiovascular: negative chest pain. Positive Afib. ICD Gastrointestinal: negative abdominal pain, constipation, diarrhea, nausea or vomiting Genitourinary: negative burning on urination, dysuria or vaginal discharge Musculoskeletal: positive arthritis/joint pain Neurologic: positive seizures Psychiatric: negative anxiety Hematologic/Lymphatic/Immunologic: positive allergies Endocrine: negative diabetes or hot flashes/sweats Objective PHYSICAL EXAMINATION: VITALS: BP 136/78 (BP Location: Right arm, Patient Position: Sitting) | Pulse 70 | Temp 97.4 F (36.3 C) | Ht 5' 3" (1.6 m) | Wt 147 lb (66.7 kg) | SpO2 98% | BMI 26.04 kg/m Body mass index is 26.04 kg/m. General appearance: alert, mild distress, cooperative, oriented times 3 Skin: Skin color, texture, turgor normal. No rashes or lesions. Head: Normocephalic. No masses, lesions, tenderness or abnormalities Eyes: conjunctivae/corneas clear. PERRL, EOM's intact. Ears: positive findings: TMs bulging bilaterally Nose/Sinuses: positive findings: mucosa erythematous and swollen, clear rhinorrhea, frontal and maxillary sinuses tender to palpation Oropharynx: positive findings: moderate oropharyngeal erythema, no exudates Neck: Neck supple, FROM. No cervical or supraclavicular adenopathy. Lungs: Lungs clear. Chest symmetrical. Normal breath sounds. Heart: RRR. No murmur, clicks or gallops. No peripheral edema . Rapid strep: negative IMPRESSION: ICD-9-CM ICD-10-CM 1. Sore throat 462 J02.9 2. Right ear pain 388.70 H92.01 Plan PLAN: Escribed Ceftin 500mg, 1 pill twice a day x 10 days, take with food Escribed Diflucan 150mg, take if vaginal yeast deveolps Will send throat swab to lab for culture, will call with results Avoid creamy foods and drink Rest, gargle with warm salt water Push water, soup, juice, tea with honey/lemon OTC Tylenol/Ibuprofen for fever/pain Call if not improving or with any questions or concerns Author: Debora Thompson PA-C 05/06/2019 08:47 documented in this encounter Plan of Treatment Health Maintenance Due Date Last Done Comments ZOSTER IMMUNIZATION SERIES 06/09/2007 (1 of 2) MEDICARE ANNUAL WELLNESS 03/26/2018 03/26/2017 VISIT INFLUENZA VACCINE (#1) 2019 04/15/2018, 03/26/2017, 04/27/2016, Additional history exists LIPID DISORDER SCREENING 04/15/2019 04/15/2018, 04/20/2017, 06/06/2015, Additional history exists FALL RISK ASSESSMENT 05/25/2019 05/25/2018, 05/25/2018 MAMMOGRAM (SCREENING) 08/19/2019 08/18/2018, 07/09/2017, 05/28/2016, Additional history exists Colonoscopy 10/26/2019 10/25/2014, 10/25/2014, 10/07/2010, Additional history exists DEPRESSION SCREENING 05/06/2020 05/06/2019 OSTEOPOROSIS SCREENING 06/13/2025 06/13/2015, 01/27/2013 PNEUMOCOCCAL 65+YRS Completed 04/27/2016, 05/22/2015, 04/12/2014 HPV IMMUNIZATION SERIES Aged Out No longer eligible based on patient's age to complete this topic MENINGOCOCCAL VACCINE IMM Aged Out No longer eligible based on patient's age to complete this topic documented as of this encounter Goals Goal Patient Goal Associated Recent Patient-Stated? Author Type Problems Progress Blood Pressure Blood Pressure 136/78 No Robert, < 150/90 (05/06/2019 MD Sol 9:00 AM EST) Note: This is an individualized treatment (blood pressure) goal for Magy Ramirez : Displayed above (on the left) is your goal for blood pressure control. Your most recent blood pressure is also shown above, on the right. You should try to achieve blood pressures that are lower than your goal listed above (on the left). Take all prescribed medications as directed Self-management Sol Triana MD Note: This is an individualized self-management goal for Magy Ramirez: Please take all prescribed medications as directed. 1. Do not skip doses. If you cannot afford your medications, talk with your doctor. 2. Use a pill reminder system such as a pill box if needed. Your pharmacist can help you with this. 3. Contact your Pharmacy 5 days before your medication runs out. If you cannot take your medications for any reasons, talk with your doctor. 4. Please bring all of your medication bottles and inhalers (or a list of all your medications/inhalers) with you to every visit. Potential barriers to meeting all of your care plan goals will continue to be addressed on an ongoing basis. documented as of this encounter Implants Implanted Type Area Damper Fitter Device Shelf Model / Identifier Expiration Serial / Date Lot [employer] Worker-P Biv Generator Left: [employer] U125 / Implanted: Qty: 1 on 09/29/2016 by Yonny Griggs MD at [facility] Chest [id number] / documented as of this encounter Results Not on filedocumented in this encounter Visit Diagnoses Diagnosis Sore throat - Primary Acute pharyngitis Right ear pain Otalgia, unspecified documented in this encounter Insurance Payer Benefit Plan / Subscriber ID Effective Dates Phone Address Type Group MEDICARE MEDICARE PART A xxxxxxxxxxx 2001-Present Medicare & B MEDICAID [facility] xxxxxxxx 2016-Present [place] Guarantor Name Account Type Relation to Date of Phone Billing Patient Address Magy Alves Personal/Family 1945 [address] (Home) [place], [place] [phone] [id number] (Work) documented as of this encounter
[2019-05-16 12:01] LABS: Urine Appearance Clear; Urine Bilirubin Negative (Negative); Urine Blood Negative (Negative); Urine Color Yellow; Urine Glucose Negative (Negative); Urine Ketones Trace (Negative); Urine Nitrite Negative (Negative); Urine Protein Negative (Negative); Urine Specific Gravity 1.009 (1.010-1.030); Urine Urobilinogen Negative (Negative)
[2019-05-16 12:59] LABS: ABS Lymphocytes 0.8 10^3/ul (1.0-4.8); ABS Monocytes 0.3 10^3/ul (0-0.8); ABS Neutrophils 6.1 10^3/ul (1.5-7.7); Eosinophil % 0.4 %; Hematocrit 40 % (35-47); Hemoglobin 13.3 g/dL (12.0-16.0); Lymphocyte % 10.9 %; Mean Corpuscular HGB Conc 34 g/dL (31-36); Mean Corpuscular Hemoglobin 31 pg (27-31); Mean Corpuscular Volume 92 fL (80-97); Mean Platelet Volume 8.1 fL (7.4-10.4); Platelet Count 216 10^3/uL (150-450); Red Blood Count 4.29 10^6 /uL (3.70-4.87); Red Cell Distribution Width 14 % (10-15); White Blood Count 7.2 10^3/uL (3.5-10.8)
[2019-05-16 14:01] LABS: Albumin 4.5 g/dL (3.2-5.2); Calcium 9.7 mg/dL (8.6-10.3); Globulin 2.3 g/dL (2-4); Potassium 3.9 mmol/L (3.5-5.0); Total Bilirubin 0.6 mg/dL (0.2-1.0); Total Protein 6.8 g/dL (6.4-8.9)
[2019-05-16 15:13] LABS: BUN/Creatinine Ratio 20.4 (8-20); EGFR African American 134.7 (>60); EGFR Non-African American 111.3 (>60)
--- NOTE | 2019-05-16 17:21 | ED ---
Altered Mental Status - HPI Summary HPI Summary: 73 year old female presents with out of body experience today. She says started this morning. She states she was writing Love cards when it started and lasted for 30 minutes. She seen no difficulty speech. No weakness and was able to go about her daily activities. She denies any lightheadedness. No headache. No chest pain or shortness of breath. She states she's been sick for the past week and has been on antibiotics. She states been having this episode every week for the past 3 months. She has not followed with anyone about this. She is still able to ambulate. She does have a history of stroke. She has a history of pacer. She states that her pacer was last interrogated 2 months ago. No palpitations. No vomiting or nausea. Denies any change in vision. No weakness. States feels fine now. - History Of Current Complaint Chief Complaint: EDGeneral Stated Complaint: AMS THIS AM Time Seen by Provider: 05/16/19 17:10 - Allergies/Home Medications Allergies/Adverse Reactions: Allergies Allergy/AdvReac Type Severity Reaction Status Date / Time doxycycline Allergy Unknown Verified 05/16/19 11:41 Reaction Details metoprolol Allergy Unknown Verified 05/16/19 11:41 Reaction Details Penicillins Allergy Rash Verified 05/16/19 11:41 simvastatin Allergy Unknown Verified 05/16/19 11:41 Reaction Details Sulfa (Sulfonamide Allergy Unknown Verified 05/16/19 11:41 Antibiotics) Reaction Details PMH/Surg Hx/FS Hx/Imm Hx Endocrine/Hematology History: Reports: Hx Anticoagulant Therapy, Hx Anemia Denies: Hx Diabetes, Hx Systemic Lupus Erythematosus Cardiovascular History: Reports: Hx Atrial Fibrillation, Hx Auto Implanted Cardiovert Defib, Hx Congestive Heart Failure, Hx Coronary Artery Disease, Hx Hypercholesterolemia, Hx Hypertension, Hx Pacemaker/ICD, Hx Valvular Heart Disease, Other Cardiovascular Problems/Disorders - aortic and mitral valve replacements Respiratory History: Reports: Hx Asthma, Hx Chronic Obstructive Pulmonary Disease (COPD), Hx Pleural Effusion, Hx Sleep Apnea, Other Respiratory Problems/ Disorders - PATIENT STATES FLUID IN LUNGS GI History: Reports: Hx Diverticulosis, Hx Gastroesophageal Reflux Disease History: Denies: Hx Dialysis, Hx Renal Disease Musculoskeletal History: Denies: Hx Rheumatoid Arthritis, Hx Scoliosis Sensory History: Reports: Hx Contacts or Glasses Denies: Hx Legally Blind, Hx Deafness, Hx Hearing Aid Opthamlomology History: Reports: Hx Contacts or Glasses Denies: Hx Legally Blind Neurological History: Reports: Hx Seizures - partial simple, Hx Transient Ischemic Attacks (TIA) Denies: Hx Headaches - Cancer History Hx Chemotherapy: No - Surgical History Surgery Procedure, Year, and Place: CABG X 2 (09/2012) at [place], the second one was done at [facility] and in 2013. PACEMAKER (STRONG-2010) [employer] [facility]#[phone]. mitral & aortic valve sx 09/21/2012 in [place]. [place] [facility] [place] hyste[place]. CARDIOVERSION, open heart 12/2013 several of these procedures then pacemaker was done. [place] [facility] [place]; left foot SX 15 years ago at [facility] Hx Anesthesia Reactions: No - Immunization History Date of Tetanus Vaccine: UTD Date of Influenza Vaccine: UTD Infectious Disease History: No Infectious Disease History: Reports: Hx Shingles Denies: Hx Clostridium Difficile, Hx Hepatitis, Hx of Known/Suspected MRSA, Hx Tuberculosis, Traveled Outside the in Last 30 Days - Family History Known Family History: Positive: Cardiac Disease, Hypertension, Other - valvular disease - Social History Alcohol Use: None Hx Substance Use: No Substance Use Type: Reports: None Hx Tobacco Use: No Smoking Status (MU): Never Smoked Tobacco Review of Systems Negative: Fever Negative: Chest Pain Negative: Shortness Of Breath Neurological: Other - out of body sensation Negative: Headache, Weakness All Other Systems Reviewed And Are Negative: Yes Physical Exam Triage Information Reviewed: Yes Vital Signs On Initial Exam: Initial Vitals Temp Pulse Resp BP Pulse Ox 98.7 F 70 16 180/88 99 05/16/19 11:34 05/16/19 11:34 05/16/19 11:34 05/16/19 11:34 05/16/19 11:34 Vital Signs Reviewed: Yes Appearance: Positive: Well-Appearing Skin: Positive: Warm, Dry Head/Face: Positive: Normal Head/Face Inspection Eyes: Positive: Normal, EOMI, EILEEN, Conjunctiva Clear ENT: Positive: Normal ENT inspection, Pharynx normal, TMs normal Respiratory/Lung Sounds: Positive: Clear to Auscultation, Breath Sounds Present Cardiovascular: Positive: Normal, RRR Abdomen Description: Positive: Nontender, Soft Bowel Sounds: Positive: Present Musculoskeletal: Positive: Normal, Strength/ROM Intact - extermities Neurological: Positive: Sensory/Motor Intact, Alert, Oriented to Person Place, Time, CN Intact II-III, Finger to Nose, Facial Symmetry, Speech Normal. Negative: Pronator Drift Present Psychiatric: Positive: Normal - Evangelist Coma Scale Best Eye Response: 4 - Spontaneous Best Motor Response: 6 - Obeys Commands Best Verbal Response: 5 - Oriented Coma Scale Total: 15 Procedures - Sedation Patient Received Moderate/Deep Sedation with Procedure: No Diagnostics - Vital Signs Vital Signs Temp Pulse Resp BP Pulse Ox 05/16/19 14:28 173/84 05/16/19 13:49 99.1 F 70 16 213/87 99 05/16/19 11:34 98.7 F 70 16 180/88 99 - Laboratory Lab Results: Lab Results 05/16/19 05/16/19 05/16/19 Range/Units 11:44 12:49 12:49 WBC 7.2 (3.5-10.8) 10^3/uL RBC 4.29 (3.70-4.87) 10^6 /uL Hgb 13.3 (12.0-16.0) g/dL Hct 40 (35-47) % MCV 92 (80-97) fL MCH 31 (27-31) pg MCHC 34 (31-36) g/dL RDW 14 (10-15) % Plt Count 216 (150-450) 10^3/uL MPV 8.1 (7.4-10.4) fL Neut % (Auto) 84.1 % Lymph % (Auto) 10.9 % [place] % (Auto) 4.4 % Eos % (Auto) 0.4 % Baso % (Auto) 0.2 % Absolute Neuts (auto) 6.1 (1.5-7.7) 10^3/ul Absolute Lymphs (auto) 0.8 L (1.0-4.8) 10^3/ul Absolute Monos (auto) 0.3 (0-0.8) 10^3/ul Absolute Eos (auto) 0.0 (0-0.6) 10^3/ul Absolute Basos (auto) 0.0 (0-0.2) 10^3/ul Absolute Nucleated RBC 0.0 10^3/ul Nucleated RBC % 0.0 Sodium 139 (135-145) mmol/L Potassium 3.9 (3.5-5.0) mmol/L Chloride 103 (101-111) mmol/L Carbon Dioxide 25 (22-32) mmol/L Anion Gap 11 (2-11) mmol/L BUN 11 (6-24) mg/dL Creatinine 0.54 (0.51-0.95) mg/dL Est GFR ( Amer) 134.7 (>60) Est GFR (Non-Af Amer) 111.3 (>60) BUN/Creatinine Ratio 20.4 H (8-20) Glucose 82 (70-100) mg/dL Lactic Acid (0.5-2.0) mmol/L Calcium 9.7 (8.6-10.3) mg/dL Total Bilirubin 0.60 (0.2-1.0) mg/dL AST 28 (13-39) U/L ALT 25 (7-52) U/L Alkaline Phosphatase 61 (34-104) U/L Troponin I 0.00 (<0.03) ng/mL Total Protein 6.8 (6.4-8.9) g/dL Albumin 4.5 (3.2-5.2) g/dL Globulin 2.3 (2-4) g/dL Albumin/Globulin Ratio 2.0 (1-3) Urine Color Yellow Urine Appearance Clear Urine pH 6.0 (5-9) Ur Specific Aubrey 1.009 L (1.010-1.030) Urine Protein Negative (Negative) Urine Ketones Trace A (Negative) Urine Blood Negative (Negative) Urine Nitrate Negative (Negative) Urine Bilirubin Negative (Negative) Urine Urobilinogen Negative (Negative) Ur Leukocyte Esterase Negative (Negative) Urine Glucose Negative (Negative) Urine Ascorbic Acid * A (Negative) 05/16/19 Range/Units 12:49 WBC (3.5-10.8) 10^3/uL RBC (3.70-4.87) 10^6 /uL Hgb (12.0-16.0) g/dL Hct (35-47) % MCV (80-97) fL MCH (27-31) pg MCHC (31-36) g/dL RDW (10-15) % Plt Count (150-450) 10^3/uL MPV (7.4-10.4) fL Neut % (Auto) % Lymph % (Auto) % [place] % (Auto) % Eos % (Auto) % Baso % (Auto) % Absolute Neuts (auto) (1.5-7.7) 10^3/ul Absolute Lymphs (auto) (1.0-4.8) 10^3/ul Absolute Monos (auto) (0-0.8) 10^3/ul Absolute Eos (auto) (0-0.6) 10^3/ul Absolute Basos (auto) (0-0.2) 10^3/ul Absolute Nucleated RBC 10^3/ul Nucleated RBC % Sodium (135-145) mmol/L Potassium (3.5-5.0) mmol/L Chloride (101-111) mmol/L Carbon Dioxide (22-32) mmol/L Anion Gap (2-11) mmol/L BUN (6-24) mg/dL Creatinine (0.51-0.95) mg/dL Est GFR ( Amer) (>60) Est GFR (Non-Af Amer) (>60) BUN/Creatinine Ratio (8-20) Glucose (70-100) mg/dL Lactic Acid 1.1 (0.5-2.0) mmol/L Calcium (8.6-10.3) mg/dL Total Bilirubin (0.2-1.0) mg/dL AST (13-39) U/L ALT (7-52) U/L Alkaline Phosphatase (34-104) U/L Troponin I (<0.03) ng/mL Total Protein (6.4-8.9) g/dL Albumin (3.2-5.2) g/dL Globulin (2-4) g/dL Albumin/Globulin Ratio (1-3) Urine Color Urine Appearance Urine pH (5-9) Ur Specific Aubrey (1.010-1.030) Urine Protein (Negative) Urine Ketones (Negative) Urine Blood (Negative) Urine Nitrate (Negative) Urine Bilirubin (Negative) Urine Urobilinogen (Negative) Ur Leukocyte Esterase (Negative) Urine Glucose (Negative) Urine Ascorbic Acid (Negative) Result Diagrams: 05/16/19 12:49 05/16/19 12:49 Lab Statement: Any lab studies that have been ordered have been reviewed, and results considered in the medical decision making process. - Radiology chest Radiology Interpretation Completed By: Radiologist Summary of Radiographic Findings: IMPRESSION: SMALL BIBASILAR PLEURAL EFFUSIONS IN THIS OTHERWISE NONACUTE CHEST X-RAY - CT brain CT Interpretation Completed By: Radiologist Summary of CT Findings: IMPRESSION: Normal CT of the brain. - EKG No standard instances Cardiac Rate: NL EKG Comparison: No Significant Change Summary of EKG Findings: paced rhythm Re-Evaluation - Re-Evaluation First Eval Re-Evaluation Time: 18:36 Comment: no change in mental status Altered Mental Statu Course/Dx - Course Course Of Treatment: 73 year old female presents with out of body experience today. She says started this morning. She states she was writing Love cards when it started and lasted for 30 minutes. She seen no difficulty speech. No weakness and was able to go about her daily activities. She denies any lightheadedness. No headache. No chest pain or shortness of breath. She states she's been sick for the past week and has been on antibiotics. She states been having this episode every week for the past 3 months. She has not followed with anyone about this. She is still able to ambulate. She does have a history of stroke. She has a history of pacer. She states that her pacer was last interrogated 2 months ago. No palpitations. No vomiting or nausea. Denies any change in vision. No weakness. States feels fine now. On exam has a normal physical exam. Normal neuro exam. No neuro deficit noted. lab work wnl. CT brain shows no acute findings. chest xray shows pleural effusion. ekg shows based rhythm. will have follow up with neurology. patient understand and agrees with plan. - Diagnoses Differential Diagnosis/HQI/PQRI: Intracranial Bleed, Metabolic Disorder, TIA Provider Diagnoses: Altered mental status Discharge ED - Sign-Out/Discharge Documenting (check all that apply): Patient Departure - Discharge Plan Condition: Good Disposition: HOME Referrals: Sol Jones MD [Primary Care Provider] - Bernarda Poe MD [Medical Doctor] - Additional Instructions: follow up with neurology Return to ED if develop any new or worsening symptoms - Billing Disposition and Condition Condition: GOOD Disposition: Home - Attestation Statements Provider Attestation: I was available for consultation for this patient. I did not evaluate the patient or participate in any medical decision making or disposition decisions unless I am specifically named in the chart as having consulted on the patient. If I have consulted on the patient, please see my own ED note on the patient encounter. Haven Alonzo MD
[2019-05-16 18:57] VITALS: BP 147/73
== END 2019-05-16 18:56 | disposition home or self-care (01) ==
LOC: ED 11:28
DX: R41.82 Altered mental status, unspecified (principal); J90 Pleural effusion, not elsewhere classified; I10 Essential (primary) hypertension; J44.9 Chronic obstructive pulmonary disease, unspecified; Z86.73 Personal history of transient ischemic attack (TIA), and cerebral infarction without residual deficits; Z79.01 Long term (current) use of anticoagulants; Z95.2 Presence of prosthetic heart valve; Z95.1 Presence of aortocoronary bypass graft; Z88.1 Allergy status to other antibiotic agents; Z88.0 Allergy status to penicillin; Z88.2 Allergy status to sulfonamides; Z88.8 Allergy status to other drugs, medicaments and biological substances; Z95.810 Presence of automatic (implantable) cardiac defibrillator
CPT/HCPCS: 36415; 70450; 71045; 80053; 81003; 83605; 84484; 85025; 93005; 99282